=== PATIENT | male | born 1965 | race American Indian/Alaskan Native ===

== ENCOUNTER 2016-06-01 18:50 | Emergency (ER) | payer OTHER ==
[2016-06-01] MEDS ORDERED: NORCO 7.5/325 PO ONE (23:43)
--- NOTE | 2016-06-01 23:46 | Emergency Department Report ---
ED Extremity Problem HPI - General Chief complaint: Extremity Problem,Nontraumatic Stated complaint: RT KNEE SWELLING Time Seen by Provider: 06/01/16 23:41 Source: patient Mode of arrival: Ambulatory Limitations: No Limitations - History of Present Illness Initial comments: 11-year-old male comes in for complaint of right knee pain and swelling since Saturday. Patient denies any known injuries. He is also requesting blood pressure medicine since he's been out for 2 months. She reports that he is on lisinopril 10 per O Lasix 20 and for pain medicine he had been on tramadol but it's been a while. - Related Data Previous Rx's Medication Instructions Recorded Last Taken Type Ibuprofen [Motrin 800 MG tab] 800 mg PO Q8HR PRN #20 tablet 03/31/16 Unknown Rx Acetaminophen/Codeine [Tylenol #3] 1 tab PO Q4HR PRN #20 tablet 06/01/16 Unknown Rx Furosemide [Lasix TAB] 20 mg PO QDAY #7 tablet 06/01/16 Unknown Rx Lisinopril [Zestril TAB] 10 mg PO QDAY #40 tablet 06/01/16 Unknown Rx traMADol [Ultram 50 MG tab] 50 mg PO Q6H #14 tablet 06/01/16 Unknown Rx Allergies Allergy/AdvReac Type Severity Reaction Status Date / Time docusate Allergy Vomiting Verified 01/01/16 06:23 docusate sodium [From Colace] Allergy Vomiting Verified 01/01/16 06:23 ED Review of Systems ROS: Stated complaint: RT KNEE SWELLING Other details as noted in HPI Constitutional: no symptoms reported Respiratory: denies: cough, shortness of breath Cardiovascular: denies: chest pain Musculoskeletal: joint swelling (right knee ), arthralgia (right knee) ED Past Medical Hx - Past Medical History Hx Hypertension: Yes (noncompliant with medications) Hx Congestive Heart Failure: No Hx Diabetes: No Hx Deep Vein Thrombosis: No Hx Asthma: No Hx COPD: No Hx HIV: No Additional medical history: diverticulitis,. only right kidney. gout - Surgical History Hx Pacemaker: No Hx Internal Defibrillator: No Additional Surgical History: colostomy 10/24/12, reversal of colostomy 2013, left kidney removed 1971, left knee surgery 2013. abd surgery x 2, hernia - Social History Smoking Status: Never Smoker Substance Use Type: None - Medications Home Medications: Home Medications Medication Instructions Recorded Confirmed Last Taken Type Ibuprofen [Motrin 800 MG tab] 800 mg PO Q8HR PRN #20 tablet 03/31/16 Unknown Rx Acetaminophen/Codeine [Tylenol #3] 1 tab PO Q4HR PRN #20 tablet 06/01/16 Unknown Rx Furosemide [Lasix TAB] 20 mg PO QDAY #7 tablet 06/01/16 Unknown Rx Lisinopril [Zestril TAB] 10 mg PO QDAY #40 tablet 06/01/16 Unknown Rx traMADol [Ultram 50 MG tab] 50 mg PO Q6H #14 tablet 06/01/16 Unknown Rx ED Physical Exam - General Limitations: No Limitations General appearance: alert, in no apparent distress - Expanded Lower Extremity Exam Right Upper Leg exam: Present: normal inspection, full ROM. Absent: tenderness, swelling Knee exam: Present: full ROM, tenderness, swelling, crepidus. Absent: deformity , dislocation, erythema, effusion Lower Leg exam: Present: normal inspection, full ROM. Absent: tenderness, swelling ED Course Vital Signs 06/01/16 19:20 Temperature 97.8 F Pulse Rate 83 Respiratory 18 Rate Blood Pressure 151/115 O2 Sat by Pulse 99 Oximetry ED Medical Decision Making - Medical Decision Making Patient has been evaluated by this provider in fast track. The patient Carroll for pain control and discharged patient on tramadol 50 mg 1 tablet by mouth 3 times a day when necessary for pain and we will refer patient to a primary care provider. Also refill patient's lisinopril 10 mg and furosemide 20 mg. Critical care attestation.: If time is entered above; I have spent that time in minutes in the direct care of this critically ill patient, excluding procedure time. ED Disposition Clinical Impression: Knee pain, right Qualifiers: Chronicity: acute Qualified Code(s): M25.561 - Pain in right knee Disposition: DISCHARGED TO HOME OR SELFCARE Is pt being admited?: No Does the pt Need Aspirin: No Condition: Stable Additional Instructions: Report to take pain medication dictation when necessary follow-up with pain provider or primary care. Prescriptions: Acetaminophen/Codeine [Tylenol #3] 1 tab PO Q4HR PRN #20 tablet PRN Reason: Pain Furosemide [Lasix TAB] 20 mg PO QDAY #7 tablet Lisinopril [Zestril TAB] 10 mg PO QDAY #40 tablet traMADol [Ultram 50 MG tab] 50 mg PO Q6H #14 tablet Referrals: PRIMARY CARE, [Primary Care Provider] - 3-5 Days Forms: Work/School Release Form(ED)
[2016-06-02 00:10] VITALS: BP 148/106
== END 2016-06-02 00:05 | disposition home or self-care (01) ==
LOC: ED 18:50
DX: M25.561 Pain in right knee (principal); I10 Essential (primary) hypertension; Z98.890 Other specified postprocedural states; Z88.8 Allergy status to other drugs, medicaments and biological substances
CPT/HCPCS: 99282

== ENCOUNTER 2016-08-02 16:35 | Emergency (ER) | payer SELFPAY ==
[2016-08-02 18:25] LABS: Basophils % (Auto) 0.6 % (0.0-1.8); Eosinophils % (Auto) 0.8 % (0.0-4.3); Hematocrit 41.6 % (35.5-45.6); Hemoglobin 13.5 gm/dl (11.8-15.2); Mean Corpuscular HGB Conc 33 % (32-34); Mean Corpuscular Hemoglobin 28 pg (28-32); Mean Corpuscular Volume 86 fl (84-94); Platelet Count 275 K/mm3 (140-440); Red Blood Count 4.83 M/mm3 (3.65-5.03); Red Cell Distribution Width 14.3 % (13.2-15.2); White Blood Count 5.6 K/mm3 (4.5-11.0)
[2016-08-02 18:30] LABS: Bilirubin,Urine NEG (Negative); Blood,Urine NEG (Negative); Ketones,Urine NEG (Negative); Leukocyte Esterase,Urine NEG (Negative); Mucus,Urine FEW /HPF; Nitrite,Urine NEG (Negative); Protein,Urine <15 mg/dL mg/dL (Negative)
[2016-08-02 18:34] LABS: WBC,Urine < 1.0 /HPF (0.0-6.0)
[2016-08-02 18:37] LABS: Alanine Aminotransferase 19 units/L (7-56); Albumin 3.8 g/dL (3.9-5); Albumin/Globulin Ratio 1.3 %; Alkaline Phosphatase 54 units/L (35-129); Anion Gap 17 mmol/L; BUN/Creatinine Ratio 10.66; Bilirubin,Total 0.2 mg/dL (0.1-1.2); Blood Urea Nitrogen 16 mg/dL (9-20); Calcium 9.1 mg/dL (8.4-10.2); Carbon Dioxide 26 mmol/L (22-30); Chloride 101.5 mmol/L (98-107); Glucose 94 mg/dL (75-100); Lipase 35 units/L (13-60); Sodium 140 mmol/L (137-145); Total Protein 6.7 g/dL (6.3-8.2)
[2016-08-02] MEDS ORDERED: NACL 0.9% 500 ML 500 ML IV ONE (19:46)
[2016-08-02] MEDS ORDERED: MORPHINE IV ONE ×2 (19:46→22:19)
--- NOTE | 2016-08-02 19:54 | Emergency Department Report ---
ED Abdominal Pain HPI - General Chief Complaint: Abdominal Pain Stated Complaint: ABDOMINAL PAIN Time Seen by Provider: 08/02/16 19:30 Source: patient Mode of arrival: Ambulatory Limitations: No Limitations - History of Present Illness Initial Comments: Patient complain of long history of recurrent left lower quadrant pain associated with severe diverticulitis and prior surgeries for recurrent ruptured diverticulitis. States this episode of pain in his progress for about a week to week and a half and has had progressing left sided abdominal pain increased nausea vomiting and diarrhea. Patient denies fever or chills. MD Complaint: abdominal pain -: Gradual, week(s) Location: LLQ Radiation: LUQ, LLQ Severity: severe Severity scale (0 -10): 7 Quality: cramping, aching - Related Data Previous Rx's Medication Instructions Recorded Last Taken Type Ibuprofen [Motrin 800 MG tab] 800 mg PO Q8HR PRN #20 tablet 03/31/16 Unknown Rx Acetaminophen/Codeine [Tylenol #3] 1 tab PO Q4HR PRN #20 tablet 06/01/16 Unknown Rx Furosemide [Lasix TAB] 20 mg PO QDAY #7 tablet 06/01/16 Unknown Rx Lisinopril [Zestril TAB] 10 mg PO QDAY #40 tablet 06/01/16 Unknown Rx traMADol [Ultram 50 MG tab] 50 mg PO Q6H #14 tablet 06/01/16 Unknown Rx Ciprofloxacin [Ciprofloxacin ORAL 500 mg PO BID #24 ml 08/02/16 Unknown Rx LIQ] metroNIDAZOLE [Flagyl] 500 mg PO Q12HR #24 tab 08/02/16 Unknown Rx Allergies Allergy/AdvReac Type Severity Reaction Status Date / Time docusate Allergy Vomiting Verified 08/02/16 17:11 docusate sodium [From Colace] Allergy Vomiting Verified 08/02/16 17:11 ED Review of Systems ROS: Stated complaint: ABDOMINAL PAIN Other details as noted in HPI ED Past Medical Hx - Past Medical History Hx Hypertension: Yes (noncompliant with medications) Hx Congestive Heart Failure: No Hx Diabetes: No Hx Deep Vein Thrombosis: No Hx Arthritis: Yes Hx Asthma: No Hx COPD: No Hx HIV: No Additional medical history: diverticulitis,. only right kidney. gout - Surgical History Hx Pacemaker: No Hx Internal Defibrillator: No Additional Surgical History: colostomy 10/24/12, reversal of colostomy 2013, left kidney removed 1971, left knee surgery 2013. abd surgery x 2,. HERNIA - Social History Smoking Status: Never Smoker Substance Use Type: Alcohol - Medications Home Medications: Home Medications Medication Instructions Recorded Confirmed Last Taken Type Ibuprofen [Motrin 800 MG tab] 800 mg PO Q8HR PRN #20 tablet 03/31/16 Unknown Rx Acetaminophen/Codeine [Tylenol #3] 1 tab PO Q4HR PRN #20 tablet 06/01/16 Unknown Rx Furosemide [Lasix TAB] 20 mg PO QDAY #7 tablet 06/01/16 Unknown Rx Lisinopril [Zestril TAB] 10 mg PO QDAY #40 tablet 06/01/16 Unknown Rx traMADol [Ultram 50 MG tab] 50 mg PO Q6H #14 tablet 06/01/16 Unknown Rx Ciprofloxacin [Ciprofloxacin ORAL 500 mg PO BID #24 ml 08/02/16 Unknown Rx LIQ] metroNIDAZOLE [Flagyl] 500 mg PO Q12HR #24 tab 08/02/16 Unknown Rx ED Physical Exam - General Limitations: No Limitations ED Course Vital Signs 08/02/16 17:13 Temperature 97.6 F Pulse Rate 70 Respiratory 20 Rate Blood Pressure 141/109 O2 Sat by Pulse 100 Oximetry - Reevaluation(s) Reevaluation #1: 08/02/16 20:54 Patient resting comfortably. Vital stable. ED Medical Decision Making - Lab Data Result diagrams: 08/02/16 18:05 08/02/16 18:05 Lab Results 08/02/16 08/02/16 08/02/16 Range/Units 17:45 18:05 18:05 WBC 5.6 (4.5-11.0) K/mm3 RBC 4.83 (3.65-5.03) M/mm3 Hgb 13.5 (11.8-15.2) gm/dl Hct 41.6 (35.5-45.6) % MCV 86 (84-94) fl MCH 28 (28-32) pg MCHC 33 (32-34) % RDW 14.3 (13.2-15.2) % Plt Count 275 (140-440) K/mm3 Lymph % (Auto) 35.9 H (13.4-35.0) % [place] % (Auto) 10.3 H (0.0-7.3) % Eos % (Auto) 0.8 (0.0-4.3) % Baso % (Auto) 0.6 (0.0-1.8) % Lymph # 2.0 (1.2-5.4) K/mm3 [place] # 0.6 (0.0-0.8) K/mm3 Eos # 0.0 (0.0-0.4) K/mm3 Baso # 0.0 (0.0-0.1) K/mm3 Seg Neutrophils % 52.4 (40.0-70.0) % Seg Neutrophils # 2.9 (1.8-7.7) K/mm3 Sodium 140 (137-145) mmol/L Potassium 4.0 (3.6-5.0) mmol/L Chloride 101.5 (98-107) mmol/L Carbon Dioxide 26 (22-30) mmol/L Anion Gap 17 mmol/L BUN 16 (9-20) mg/dL Creatinine 1.5 (0.8-1.5) mg/dL Estimated GFR > 60 ml/min BUN/Creatinine Ratio 10.66 % Glucose 94 (75-100) mg/dL Calcium 9.1 (8.4-10.2) mg/dL Total Bilirubin 0.2 (0.1-1.2) mg/dL AST 20 (5-40) units/L ALT 19 (7-56) units/L Alkaline Phosphatase 54 (35-129) units/L Total Protein 6.7 (6.3-8.2) g/dL Albumin 3.8 L (3.9-5) g/dL Albumin/Globulin Ratio 1.3 % Lipase 35 (13-60) units/L Urine Color Yellow (Yellow) Urine Turbidity Clear (Clear) Urine pH 5.0 (5.0-7.0) Ur Specific Institute 1.019 (1.003-1.030) Urine Protein <15 mg/dl (Negative) mg/dL Urine Glucose (UA) Neg (Negative) mg/dL Urine Ketones Neg (Negative) mg/dL Urine Blood Neg (Negative) Urine Nitrite Neg (Negative) Urine Bilirubin Neg (Negative) Urine Urobilinogen 4.0 (<2.0) mg/dL Ur Leukocyte Esterase Neg (Negative) Urine WBC (Auto) < 1.0 (0.0-6.0) /HPF Urine RBC (Auto) 2.0 (0.0-6.0) /HPF U Epithel Cells (Auto) < 1.0 (0-13.0) /HPF Urine Mucus Few /HPF Critical care attestation.: If time is entered above; I have spent that time in minutes in the direct care of this critically ill patient, excluding procedure time. ED Disposition Clinical Impression: Diverticular disease Disposition: DISCHARGED TO HOME OR SELFCARE Is pt being admited?: No Condition: Stable Instructions: Diverticulitis (ED) Prescriptions: Ciprofloxacin [Ciprofloxacin ORAL LIQ] 500 mg PO BID #24 ml metroNIDAZOLE [Flagyl] 500 mg PO Q12HR #24 tab Referrals: PRIMARY CARE, [Primary Care Provider] - 3-5 Days Forms: Work/School Release Form(ED)
[2016-08-02] MEDS ORDERED: FLAGYL 500 MG/100 ML 500 MG/100 ML BAG IV SCH (20:00)
--- NOTE | 2016-08-02 21:17 | Cat Scan Report ---
FINAL REPORT PROCEDURE: CT ABDOMEN PELVIS WO CON TECHNIQUE: Computerized axial tomography of the abdomen and pelvis was performed without intravenous contrast. This study is performed without intravascular contrast material and its sensitivity for abdominal and pelvic pathology, including neoplasms, inflammation, abscess, free fluid, thrombosis, arterial dissection and infarction, is reduced compared with a contrast enhanced study. HISTORY: llq pain COMPARISON: Prior CT scan abdomen and pelvis 01/09/2016 FINDINGS: Lower Lung narayanan: Minimal dependent atelectasis visualized. Lung bases otherwise are clear. Upper Abdomen: The liver, the gallbladder, the adrenal glands, the spleen on the unenhanced images of the pancreas are unremarkable. Kidneys, Ureters and Urinary bladder: Left kidney is not visualized. Left kidney was also not visualized on the prior exam. Right kidney and right ureter are unremarkable. The urinary bladder is unremarkable. Retroperitoneum: Abdominal aorta appears normal. Nonspecific subcentimeter lymph nodes are seen in the retroperitoneum. No pathologically enlarged lymph nodes are identified. Bowel: There are surgical clips seen near the junction of the descending colon and sigmoid colon. There also appear to be surgical clips involving loops of small bowel in the mid abdomen anteriorly. Bowel loops otherwise are unremarkable. No evidence of bowel obstruction ascites or free intraperitoneal gas. Normal-appearing appendix is seen in the right lower quadrant. Scarring is again visualized in the anterior abdominal wall. This is greatest at the umbilicus and extending to the left of midline. There is a mesh visualized in the anterior abdominal wall in the left lower quadrant. This is unchanged. Other: No acute bony abnormalities are visualized. IMPRESSION: Postsurgical changes are seen involving loops of small bowel in the mid abdomen anteriorly and also involving the left side of the colon as described. Bowel loops otherwise are unremarkable. No evidence of bowel obstruction. Postsurgical changes are seen in the anterior abdominal wall as described. A mesh appears to be present in the anterior abdominal wall in the left lower quadrant. This is unchanged. Left kidney is not visualized. This is unchanged from the prior exam. This could be due to prior resection, severe atrophy or congenital absence.
[2016-08-02 22:36] VITALS: BP 158/116
== END 2016-08-02 22:38 | disposition home or self-care (01) ==
LOC: ED 16:35
DX: K57.90 Diverticulosis of intestine, part unspecified, without perforation or abscess without bleeding (principal); I10 Essential (primary) hypertension; Z93.3 Colostomy status; Z98.890 Other specified postprocedural states
CPT/HCPCS: 36415; 74176; 80053; 81001; 83690; 85025; 96361; 96365; 96375; 96376; 99284; J2270; J7040

== ENCOUNTER 2016-10-02 02:04 | Emergency (ER) | payer SELFPAY ==
[2016-10-02 02:56] LABS: Basophils % (Auto) 1.2 % (0.0-1.8); Eosinophils % (Auto) 0.5 % (0.0-4.3); Hematocrit 43.7 % (35.5-45.6); Hemoglobin 14.3 gm/dl (11.8-15.2); Mean Corpuscular HGB Conc 33 % (32-34); Mean Corpuscular Hemoglobin 28 pg (28-32); Mean Corpuscular Volume 86 fl (84-94); Platelet Count 276 K/mm3 (140-440); Red Blood Count 5.08 M/mm3 (3.65-5.03); Red Cell Distribution Width 15.4 % (13.2-15.2); White Blood Count 6.6 K/mm3 (4.5-11.0)
[2016-10-02 03:08] LABS: Alanine Aminotransferase 31 units/L (7-56); Albumin 4.2 g/dL (3.9-5); Albumin/Globulin Ratio 1.5 %; Alkaline Phosphatase 57 units/L (35-129); Anion Gap 17 mmol/L; Blood Urea Nitrogen 21 mg/dL (9-20); Calcium 9.3 mg/dL (8.4-10.2); Carbon Dioxide 26 mmol/L (22-30); Chloride 101.8 mmol/L (98-107); Glucose 92 mg/dL (75-100); Lipase 34 units/L (13-60); Potassium 4.3 mmol/L (3.6-5.0); Sodium 140 mmol/L (137-145)
[2016-10-02 06:21] LABS: Bilirubin,Urine NEG (Negative); Blood,Urine SM (Negative); Ketones,Urine NEG (Negative); Leukocyte Esterase,Urine NEG (Negative); Mucus,Urine FEW /HPF; Nitrite,Urine NEG (Negative); Protein,Urine <15 mg/dL mg/dL (Negative); Urobilinogen,Urine < 2.0 mg/dL (<2.0); WBC,Urine < 1.0 /HPF (0.0-6.0)
[2016-10-02] MEDS ORDERED: ZOFRAN IV ONE (07:02)
[2016-10-02] MEDS ORDERED: MORPHINE IV ONE (07:02)
--- NOTE | 2016-10-02 07:06 | Emergency Department Report ---
HPI - General Chief Complaint: Abdominal Pain Time Seen by Provider: 10/02/16 06:54 - HPI HPI: This is a 51-year-old Afro-[place] male who presents to the emergency Department, after being dropped off by his fiance, with complaint of a 2-3 day history of generalized abdominal pain that is worst in the lower portion of the abdomen. It is associated with some nausea and mild vomiting. He denies any diarrhea, dysuria. He has not taken anything for his symptoms prior to presentation. He does not have a primary care physician. He has a past medical history of asthma diverticulitis. He has a history of colostomy and reversal of colostomy, left nephrectomy, 2 other abdominal surgeries for hernias. No recent travel or sick contacts at home. ED Past Medical Hx - Past Medical History Previous Medical History?: Yes Hx Hypertension: Yes (noncompliant with medications) Hx Congestive Heart Failure: No Hx Diabetes: No Hx Deep Vein Thrombosis: No Hx Arthritis: Yes Hx Asthma: No Hx COPD: No Hx HIV: No Additional medical history: diverticulitis,. only right kidney. gout - Surgical History Past Surgical History?: Yes Hx Pacemaker: No Hx Internal Defibrillator: No Additional Surgical History: colostomy 10/24/12, reversal of colostomy 2013, left kidney removed 1971, left knee surgery 2013. abd surgery x 2,. HERNIA - Social History Smoking Status: Unknown if ever smoked Substance Use Type: None - Medications Home Medications: Home Medications Medication Instructions Recorded Confirmed Last Taken Type Ibuprofen [Motrin 800 MG tab] 800 mg PO Q8HR PRN #20 tablet 03/31/16 Unknown Rx Acetaminophen/Codeine [Tylenol #3] 1 tab PO Q4HR PRN #20 tablet 06/01/16 Unknown Rx Furosemide [Lasix TAB] 20 mg PO QDAY #7 tablet 06/01/16 Unknown Rx Lisinopril [Zestril TAB] 10 mg PO QDAY #40 tablet 06/01/16 Unknown Rx Ciprofloxacin [Ciprofloxacin ORAL 500 mg PO BID #24 ml 08/02/16 Unknown Rx LIQ] metroNIDAZOLE [Flagyl] 500 mg PO Q12HR #24 tab 08/02/16 Unknown Rx traMADol [Ultram 50 MG tab] 50 mg PO Q6H #8 tablet 10/02/16 Unknown Rx ED Review of Systems ROS: Stated complaint: ABD PAIN Other details as noted in HPI Comment: All other systems reviewed and negative Constitutional: denies: chills, fever Eyes: denies: eye pain, eye discharge, vision change ENT: denies: ear pain, throat pain Respiratory: denies: cough, shortness of breath, wheezing Cardiovascular: denies: chest pain, palpitations Gastrointestinal: abdominal pain, nausea, vomiting Genitourinary: denies: urgency, dysuria Musculoskeletal: denies: back pain, joint swelling, arthralgia Skin: denies: rash, lesions Neurological: denies: headache, weakness, paresthesias Physical Exam - Physical Exam Vital Signs: Vital Signs 10/02/16 10/02/16 10/02/16 02:24 02:26 06:27 Temperature 99.1 F 99.1 F Pulse Rate 93 H 93 H Respiratory 20 20 Rate Blood Pressure 148/108 150/106 Blood Pressure 148/108 [Right] O2 Sat by Pulse 96 96 Oximetry 10/02/16 06:30 Temperature Pulse Rate Respiratory Rate Blood Pressure 160/112 Blood Pressure [Right] O2 Sat by Pulse Oximetry Physical Exam: GENERAL: The patient is well-developed well-nourished. HEENT: Normocephalic. Atraumatic. Extraocular motions are intact. Patient has moist mucous membranes. NECK: Supple. Trachea is midline. CHEST/LUNGS: Clear to auscultation. There is no respiratory distress noted. HEART/CARDIOVASCULAR: Regular. There is no tachycardia. There is no gallop rub or murmur. ABDOMEN: Abdomen is soft. There is some generalized tenderness to palpation of the abdomen. No guarding or rebound tenderness. Patient has normal bowel sounds. Obese habitus. SKIN: Skin is warm and dry. NEURO: The patient is awake, alert, and oriented. The patient is cooperative. The patient has no focal neurologic deficits. The patient has normal speech. MUSCULOSKELETAL: There is no tenderness or deformity. There is no limitation range of motion. There is no evidence of acute injury. ED Course Vital Signs 10/02/16 10/02/16 10/02/16 02:24 02:26 06:27 Temperature 99.1 F 99.1 F Pulse Rate 93 H 93 H Respiratory 20 20 Rate Blood Pressure 148/108 150/106 Blood Pressure 148/108 [Right] O2 Sat by Pulse 96 96 Oximetry 10/02/16 06:30 Temperature Pulse Rate Respiratory Rate Blood Pressure 160/112 Blood Pressure [Right] O2 Sat by Pulse Oximetry ED Medical Decision Making - Lab Data Result diagrams: 10/02/16 02:33 10/02/16 02:33 - Radiology Data Radiology results: report reviewed, image reviewed interpreted by me: Abdominal x-ray shows nonspecific nonobstructive bowel gas. Otherwise no acute process seen. CT ABDOMEN AND PELVIS WITH CONTRAST INDICATION: Abdominal pain. COMPARISON: 08/02/2016. FINDINGS: Abdomen and pelvis CT performed following oral contrast and intravenous administration of 100 cc of Omnipaque 300. LUNG BASES: Stable heart size. No effusions. Right more than left basilar dependent atelectasis. Mild lingular scarring. ABDOMEN: Liver homogenous, though visually slightly hypodense. No focal suspicious lesions or biliary dilatation. Spleen, gallbladder, pancreas, adrenals, non-aneurysmal abdominal aorta, IVC and right kidney again unremarkable. Absent left kidney, possibly congenital versus surgical with bowel occupying the left renal fossa. No bowel obstruction. Small bowel anastomosis in the midline again noted with caliber of 3.8 cm AP, axial image 176, series 2 and a small overlying possible fat-containing ventral hernia as on axial image 162. Normal appendix. Usual colonic stool. No ascites or significant adenopathy. PELVIS: Urinary bladder, seminal vesicles, prostate and rectosigmoid within normal limits. Few small prostatic calcifications and pelvic phleboliths. No free fluid or significant adenopathy. Anterior abdominal wall postsurgical changes noted, including left lower quadrant ventral wall hernia repair [place]. Left lower flank muscle atrophy/fatty replacement again noted. Right SI joint degenerative bridging. CONCLUSION: No acute CT abnormality or significant interval change with small bowel anastomosis, anterior abdominal wall post surgical changes and absent left kidney again noted, amongst others, as described. Thank you for the opportunity to participate in this patient's care. Transcribed By: RS Dictated By: RENETTA BARCENAS MD Electronically Authenticated By: RENETTA BARCENAS MD Signed Date/Time: 10/02/16 1119 - Medical Decision Making 51-year-old male with a history of intestinal anastomosis and multiple hernias presents with a few days of abdominal pain and some nausea with occasional vomiting. His labs are unremarkable including no signs of infection in the blood or urine, electrolyte abnormalities, renal insufficiency. Normal belly labs include bilirubin, lipase and LFTs. Abdominal x-ray does not show any acute process. Due to his level of discomfort, a CT of the abdomen and pelvis with IV contrast was done that resulted as no acute process as well. For these reasons the patient appears safe for discharge home at this time. Vital signs stable throughout his ED course. He was given referrals for primary care and gastroenterology. He was sent home with a small amount of pain medication. He has been encouraged to return to the emergency department with any worsening of his symptoms or any acute distress. - Differential Diagnosis colitis, diverticulitis, bowel obstruction, hernia Critical Care Time: No Critical care attestation.: If time is entered above; I have spent that time in minutes in the direct care of this critically ill patient, excluding procedure time. ED Disposition Clinical Impression: Abdominal pain Qualifiers: Abdominal location: generalized Qualified Code(s): R10.84 - Generalized abdominal pain Disposition: TO HOME OR SELFCARE Is pt being admited?: No Condition: Stable Instructions: Abdominal Pain (ED) Additional Instructions: Please follow-up with a primary care physician in the next few days. I have also given you a referral for a local fagoter that works at [facility], Dr. Lazo. Return to the emergency department with any worsening of your symptoms or any acute distress. You've been prescribed a medication that is sedating. Therefore this medication cannot be mixed with alcohol, or taken prior to driving, working, or being responsible for children. Prescriptions: traMADol [Ultram 50 MG tab] 50 mg PO Q6H #8 tablet Referrals: OCTAVIO OBRIEN MD [Primary Care Provider] - 3-5 Days SEGUN CERVANTES MD [Staff Physician] - 3-5 Days TITI LAZO MD [Staff Physician] - 3-5 Days [facility] [Outside] - 3-5 Days Time of Disposition: 11:38
--- NOTE | 2016-10-02 08:26 | XRay Report ---
ABDOMEN RADIOGRAPHS INDICATION: Abdominal pain. COMPARISON: 11/04/2013 and 08/02/2016 CT findings. FINDINGS: Frontal abdominal radiographs demonstrate nonobstructive bowel gas pattern. No focal suspicious calcifications, pneumatosis or pneumoperitoneum. Few left lower quadrant hernia repair [place]. Clear visualized lung bases. Unremarkable bones. CONCLUSION: No acute abdominal radiographic abnormality, as described. Thank you for the opportunity to participate in this patient's care.
[2016-10-02] MEDS ORDERED: NACL ONE (10:06)
[2016-10-02] MEDS ORDERED: DILAUDID IV ONE (10:09)
--- NOTE | 2016-10-02 11:24 | Cat Scan Report ---
CT ABDOMEN AND PELVIS WITH CONTRAST INDICATION: Abdominal pain. COMPARISON: 08/02/2016. FINDINGS: Abdomen and pelvis CT performed following oral contrast and intravenous administration of 100 cc of Omnipaque 300. LUNG BASES: Stable heart size. No effusions. Right more than left basilar dependent atelectasis. Mild lingular scarring. ABDOMEN: Liver homogenous, though visually slightly hypodense. No focal suspicious lesions or biliary dilatation. Spleen, gallbladder, pancreas, adrenals, non-aneurysmal abdominal aorta, IVC and right kidney again unremarkable. Absent left kidney, possibly congenital versus surgical with bowel occupying the left renal fossa. No bowel obstruction. Small bowel anastomosis in the midline again noted with caliber of 3.8 cm AP, axial image 176, series 2 and a small overlying possible fat-containing ventral hernia as on axial image 162. Normal appendix. Usual colonic stool. No ascites or significant adenopathy. PELVIS: Urinary bladder, seminal vesicles, prostate and rectosigmoid within normal limits. Few small prostatic calcifications and pelvic phleboliths. No free fluid or significant adenopathy. Anterior abdominal wall postsurgical changes noted, including left lower quadrant ventral wall hernia repair [place]. Left lower flank muscle atrophy/fatty replacement again noted. Right SI joint degenerative bridging. CONCLUSION: No acute CT abnormality or significant interval change with small bowel anastomosis, anterior abdominal wall post surgical changes and absent left kidney again noted, amongst others, as described. Thank you for the opportunity to participate in this patient's care.
[2016-10-02 12:21] VITALS: BP 140/90
== END 2016-10-02 12:20 | disposition home or self-care (01) ==
LOC: ED 02:04
DX: R10.84 Generalized abdominal pain (principal); R11.2 Nausea with vomiting, unspecified; I10 Essential (primary) hypertension; M19.90 Unspecified osteoarthritis, unspecified site; K57.92 Diverticulitis of intestine, part unspecified, without perforation or abscess without bleeding
CPT/HCPCS: 36415; 74020; 74177; 80053; 81001; 83690; 85025; 96374; 96375; 99284; J1170; J2270; J2405; Q9967

== ENCOUNTER 2016-10-18 13:50 | Emergency (ER) | payer SELFPAY ==
[2016-10-18 14:30] VITALS: BP 143/96
[2016-10-18 15:13] LABS: Bilirubin,Urine NEG (Negative); Blood,Urine SM (Negative); Ketones,Urine NEG (Negative); Leukocyte Esterase,Urine NEG (Negative); Mucus,Urine FEW /HPF; Nitrite,Urine NEG (Negative); Protein,Urine <15 mg/dL mg/dL (Negative); Urobilinogen,Urine < 2.0 mg/dL (<2.0); WBC,Urine < 1.0 /HPF (0.0-6.0)
[2016-10-18 15:14] LABS: Basophils % (Auto) 0.5 % (0.0-1.8); Eosinophils % (Auto) 1.1 % (0.0-4.3); Hematocrit 43.4 % (35.5-45.6); Hemoglobin 14.3 gm/dl (11.8-15.2); Mean Corpuscular HGB Conc 33 % (32-34); Mean Corpuscular Hemoglobin 28 pg (28-32); Mean Corpuscular Volume 87 fl (84-94); Platelet Count 273 K/mm3 (140-440); Red Blood Count 5.01 M/mm3 (3.65-5.03); Red Cell Distribution Width 15.2 % (13.2-15.2); White Blood Count 5.9 K/mm3 (4.5-11.0)
[2016-10-18 15:29] LABS: Alanine Aminotransferase 32 units/L (7-56); Albumin 4.1 g/dL (3.9-5); Albumin/Globulin Ratio 1.3 %; Alkaline Phosphatase 66 units/L (35-129); Anion Gap 17 mmol/L; BUN/Creatinine Ratio 10.76; Blood Urea Nitrogen 14 mg/dL (9-20); Calcium 9.6 mg/dL (8.4-10.2); Carbon Dioxide 26 mmol/L (22-30); Chloride 104.5 mmol/L (98-107); Glucose 83 mg/dL (75-100); Lipase 45 units/L (13-60); Potassium 4.6 mmol/L (3.6-5.0); Sodium 143 mmol/L (137-145); Total Protein 7.3 g/dL (6.3-8.2)
== END 2016-10-18 20:00 | disposition left against medical advice (07) ==
LOC: ED 13:50
DX: R10.9 Unspecified abdominal pain (principal); Z53.21 Procedure and treatment not carried out due to patient leaving prior to being seen by health care provider
CPT/HCPCS: 36415; 80053; 81001; 83690; 85025

== ENCOUNTER 2016-11-08 12:33 | Emergency (ER) | payer SELFPAY ==
--- NOTE | 2016-11-08 14:47 | XRay Report ---
RIGHT FINGERS, 3 VIEWS History: Pain, injury. Findings: No acute osseous findings or joint pathology is detected. The soft tissues are unremarkable. Impression: No acute injury identified.
[2016-11-08] MEDS ORDERED: MOTRIN PO ONE (15:51)
[2016-11-08] MEDS ORDERED: BOOSTRIX IM ONE (15:52)
[2016-11-08] MEDS ORDERED: KEFLEX PO ONE (15:52)
[2016-11-08 16:53] VITALS: BP 160/100
--- NOTE | 2016-11-08 23:18 | Emergency Department Report ---
Entered by CHER DEXTER, acting as scribe for SAVANAH MENDOZA PA. ED Upper Extremity Inj HPI - General Chief Complaint: Extremity Injury, Upper Stated Complaint: RT POINTER FINGER LACERATION Time Seen by Provider: 11/08/16 15:32 Source: patient Mode of arrival: Ambulatory Limitations: No Limitations - History of Present Illness Initial Comments: 51 year old male with history of Arthritis and HTN presents to the ED c/o right hand pain that started couple hours ago. Patient states he was lifting a TV onto a [employer] truck when the TV fell on his right fingertips. Patient rates the pain a 6/10 in severity and describes it as throbbing. Patient reports small u- shaped laceration on right index finger with bleeding, but denies any numbness or tingling. MD Complaint: Injury to:: right (right finger tips) -: This afternoon Other Extremity Injury: Fingers: Right Other Injuries: none Handedness: right Place: outdoors (moving a TV onto a [employer] ) Improves With: none Worsens With: movement of extremity Context: direct blow Associated Symptoms: denies other symptoms. denies: weakness, numbness, neck pain, suspects foreign body, nausea/vomiting, heard/felt popping sensat - Related Data Previous Rx's Medication Instructions Recorded Last Taken Type Ibuprofen [Motrin 800 MG tab] 800 mg PO Q8HR PRN #20 tablet 03/31/16 Unknown Rx Acetaminophen/Codeine [Tylenol #3] 1 tab PO Q4HR PRN #20 tablet 06/01/16 Unknown Rx Furosemide [Lasix TAB] 20 mg PO QDAY #7 tablet 06/01/16 Unknown Rx Lisinopril [Zestril TAB] 10 mg PO QDAY #40 tablet 06/01/16 Unknown Rx Ciprofloxacin [Ciprofloxacin ORAL 500 mg PO BID #24 ml 08/02/16 Unknown Rx LIQ] metroNIDAZOLE [Flagyl] 500 mg PO Q12HR #24 tab 08/02/16 Unknown Rx traMADol [Ultram 50 MG tab] 50 mg PO Q6H #8 tablet 10/02/16 Unknown Rx Cephalexin [Keflex] 500 mg PO Q12HR #14 cap 11/08/16 Unknown Rx Ibuprofen [Motrin] 800 mg PO Q8HR PRN #25 tablet 11/08/16 Unknown Rx Allergies Allergy/AdvReac Type Severity Reaction Status Date / Time docusate Allergy Vomiting Verified 11/08/16 12:45 docusate sodium [From Colace] Allergy Vomiting Verified 11/08/16 12:45 ED Review of Systems Comment: All other systems reviewed and negative Constitutional: denies: chills, fever Eyes: denies: eye pain, eye discharge, vision change ENT: denies: ear pain, throat pain Respiratory: denies: cough, shortness of breath, wheezing Cardiovascular: denies: chest pain, palpitations Gastrointestinal: denies: abdominal pain, nausea, diarrhea Musculoskeletal: denies: back pain, joint swelling, arthralgia Skin: other (small u-shaped laceration on right index finger with controlled bleeding). denies: rash, lesions Neurological: denies: headache, weakness, paresthesias ED Past Medical Hx - Past Medical History Hx Hypertension: Yes (noncompliant with medications) Hx Congestive Heart Failure: No Hx Diabetes: No Hx Deep Vein Thrombosis: No Hx Arthritis: Yes Hx Asthma: No Hx COPD: No Hx HIV: No Additional medical history: diverticulitis,. only right kidney. gout - Surgical History Hx Pacemaker: No Hx Internal Defibrillator: No Additional Surgical History: colostomy 10/24/12, reversal of colostomy 2013, left kidney removed 1971, left knee surgery 2013. abd surgery x 2,. HERNIA - Social History Smoking Status: Former Smoker Substance Use Type: Alcohol - Medications Home Medications: Home Medications Medication Instructions Recorded Confirmed Last Taken Type Ibuprofen [Motrin 800 MG tab] 800 mg PO Q8HR PRN #20 tablet 03/31/16 Unknown Rx Acetaminophen/Codeine [Tylenol #3] 1 tab PO Q4HR PRN #20 tablet 06/01/16 Unknown Rx Furosemide [Lasix TAB] 20 mg PO QDAY #7 tablet 06/01/16 Unknown Rx Lisinopril [Zestril TAB] 10 mg PO QDAY #40 tablet 06/01/16 Unknown Rx Ciprofloxacin [Ciprofloxacin ORAL 500 mg PO BID #24 ml 08/02/16 Unknown Rx LIQ] metroNIDAZOLE [Flagyl] 500 mg PO Q12HR #24 tab 08/02/16 Unknown Rx traMADol [Ultram 50 MG tab] 50 mg PO Q6H #8 tablet 10/02/16 Unknown Rx Cephalexin [Keflex] 500 mg PO Q12HR #14 cap 11/08/16 Unknown Rx Ibuprofen [Motrin] 800 mg PO Q8HR PRN #25 tablet 11/08/16 Unknown Rx ED Physical Exam - General Limitations: No Limitations General appearance: alert, in no apparent distress - Head Head exam: Present: atraumatic, normocephalic - Eye Eye exam: Present: normal appearance, PERRL, EOMI Pupils: Present: normal accommodation. Absent: irregular - ENT ENT exam: Present: mucous membranes moist - Neck Neck exam: Present: normal inspection, full ROM. Absent: tenderness, meningismus - Respiratory Respiratory exam: Present: normal lung sounds bilaterally. Absent: respiratory distress, wheezes, rales, rhonchi, stridor - Cardiovascular Cardiovascular Exam: Present: regular rate, normal rhythm. Absent: systolic murmur, diastolic murmur, rubs, gallop - Extremities Exam Extremities exam: Present: normal inspection, full ROM, normal capillary refill. Absent: tenderness, pedal edema, joint swelling - Back Exam Back exam: Present: normal inspection, full ROM. Absent: tenderness - Neurological Exam Neurological exam: Present: alert, oriented X3 - Psychiatric Psychiatric exam: Present: normal affect, normal mood - Skin Skin exam: Present: warm, dry, intact, normal color, other (small u-shaped laceration on right index finger ). Absent: rash - Expanded Skin Exam Expanded Type of lesion: Present: laceration (to right index finger) ED Course Vital Signs 11/08/16 12:41 Temperature 97.8 F Pulse Rate 81 Respiratory 17 Rate Blood Pressure 143/101 O2 Sat by Pulse 96 Oximetry ED Medical Decision Making - Medical Decision Making A/P: Fingertip laceration right distal index finger 1-x-ray shows no fracture. Distal capillary refill is intact and distal sensation is intact 2-tetanus updated today 3-skin wound edges are touching. Given appearance and nature of laceration it was not necessary to place sutures, I used Dermabond and Steri-Strips and achieved good approximation of skin without any difficulty. I instructed the patient on local wound care. Patient states he will get his own fingertip splint 4-Keflex 500 twice a day 5 days ED Disposition Clinical Impression: Fingertip contusion Qualifiers: Encounter type: initial encounter Qualified Code(s): S60.00XA - Contusion of unspecified finger without damage to nail, initial encounter Disposition: DC-01 TO HOME OR SELFCARE Is pt being admited?: No Does the pt Need Aspirin: No Condition: Stable Instructions: Finger Laceration (ED), Contusion in Adults (ED), Abrasion (ED), Skin Adhesive Care (ED) Additional Instructions: Patient advised to return to the ED for any pus drainage cellulitis or significant pain or significant bleeding from fingertip. Patient stated that he understood these instructions Prescriptions: Cephalexin [Keflex] 500 mg PO Q12HR #14 cap Ibuprofen [Motrin] 800 mg PO Q8HR PRN #25 tablet PRN Reason: Pain Referrals: [facility] [Provider Group] - 3-5 Days Forms: Work/School Release Form(ED) Time of Disposition: 16:39 This documentation as recorded by the [facility] poon PEARL,accurately reflects the service I personally performed and the decisions made by REJI valentin RICHARD J, PA.
== END 2016-11-08 16:54 | disposition home or self-care (01) ==
LOC: ED 12:33
DX: S61.210A Laceration without foreign body of right index finger without damage to nail, initial encounter (principal); I10 Essential (primary) hypertension; S60.00XA Contusion of unspecified finger without damage to nail, initial encounter; X58.XXXA Exposure to other specified factors, initial encounter; Y93.9 Activity, unspecified; Y92.9 Unspecified place or not applicable; Y99.9 Unspecified external cause status
CPT/HCPCS: 90471; 90715; 99283

== ENCOUNTER 2017-03-12 11:21 | Emergency (ER) | payer OTHER ==
--- NOTE | 2017-03-12 11:59 | Emergency Department Report ---
Chief Complaint: Abdominal Pain Stated Complaint: ABDOMINAL PAIN Time Seen by Provider: 03/12/17 11:54 - HPI History of Present Illness: Patient is a 52-year-old male with a prior surgical history of several abdominal surgeries presents ED complaining of abdominal pain 3 days. Patient states pain is constant and localized to his left quadrant. Patient admits to 3 vomiting episodes per day. Patient admits nausea and states he feels like his stomach is gotten a bit bigger In the past 3 days He denies fevers/chills/chest pain/shortness of breath/dizziness/headache or any other problems. - ROS Review of Systems: As noted in HPI - Exam Vital Signs: Vital Signs 03/12/17 11:47 Temperature 99.2 F Pulse Rate 86 Respiratory 16 Rate Blood Pressure 123/87 O2 Sat by Pulse 98 Oximetry Physical Exam: GENERAL: Alert and oriented x3, no apparent distress, Normal Gait, atraumatic. ABDOMEN: hypoactive bowel sounds, soft, and distended. . tender to palpation on left Quadrants, NO CVA tenderness. Several old surgical scars visualized. Some guarding. BACK: Full range of motion, no spinal tenderness, nontender to palpation. MSE screening note: Focused history and physical exam performed. Due to findings the following was ordered: ED Medical Decision Making - Medical Decision Making 52-year-old in mild distress due to pain Abdominal protocol ordered. CT scan ordered. Patient waiting to be seen by ED physician ED Disposition for MSE Condition: Stable
[2017-03-12 12:15] LABS: Basophils % (Auto) 0.5 % (0.0-1.8); Eosinophils % (Auto) 0.2 % (0.0-4.3); Hematocrit 44.4 % (35.5-45.6); Hemoglobin 14.5 gm/dl (11.8-15.2); Mean Corpuscular HGB Conc 33 % (32-34); Mean Corpuscular Hemoglobin 29 pg (28-32); Mean Corpuscular Volume 88 fl (84-94); Red Blood Count 5.04 M/mm3 (3.65-5.03); Red Cell Distribution Width 14.9 % (13.2-15.2); White Blood Count 4.3 K/mm3 (4.5-11.0)
[2017-03-12] MEDS ORDERED: NACL 0.9% 1000 ML 1,000 ML IV ONE (12:21)
[2017-03-12] MEDS ORDERED: ZOFRAN IV ONE (12:21)
[2017-03-12] MEDS ORDERED: DILAUDID IV ONE ×2 (12:21→14:09)
[2017-03-12 12:34] LABS: Alanine Aminotransferase 20 units/L (7-56); Albumin 3.8 g/dL (3.9-5); Albumin/Globulin Ratio 1.3 %; Alkaline Phosphatase 56 units/L (35-129); Anion Gap 18 mmol/L; BUN/Creatinine Ratio 13; Blood Urea Nitrogen 16 mg/dL (9-20); Calcium 8.2 mg/dL (8.4-10.2); Carbon Dioxide 25 mmol/L (22-30); Chloride 96.3 mmol/L (98-107); Glucose 93 mg/dL (75-100); Lipase 52 units/L (13-60); Potassium 4.1 mmol/L (3.6-5.0); Sodium 135 mmol/L (137-145); Total Protein 6.7 g/dL (6.3-8.2)
[2017-03-12 13:09] LABS: Bilirubin,Urine NEG (Negative); Blood,Urine SM (Negative); Ketones,Urine NEG (Negative); Leukocyte Esterase,Urine NEG (Negative); Mucus,Urine FEW /HPF; Nitrite,Urine NEG (Negative); Protein,Urine <15 mg/dL mg/dL (Negative); Urobilinogen,Urine < 2.0 mg/dL (<2.0)
--- NOTE | 2017-03-12 13:21 | Emergency Department Report ---
ED Abdominal Pain HPI - General Chief Complaint: Abdominal Pain Stated Complaint: ABDOMINAL PAIN Time Seen by Provider: 03/12/17 11:54 Source: patient Mode of arrival: Ambulatory Limitations: No Limitations - History of Present Illness Initial Comments: 52-year-old male male with past medical history of hypertension, one kidney, and previous colostomy status post reversal in 2013 secondary to diverticulitis presents to the hospital complaints of generalized abdominal pain with nausea, vomiting, and diarrhea 3 days. Patient had been approximately 3 episodes of vomiting daily. Last bowel movement was "a couple of days ago" and complains of hematochezia, melena, hematemesis, or fever. Severity scale (0 -10): 8 - Related Data Previous Rx's Medication Instructions Recorded Last Taken Type Ibuprofen [Motrin 800 MG tab] 800 mg PO Q8HR PRN #20 tablet 03/31/16 Unknown Rx Acetaminophen/Codeine [Tylenol #3] 1 tab PO Q4HR PRN #20 tablet 06/01/16 Unknown Rx Furosemide [Lasix TAB] 20 mg PO QDAY #7 tablet 06/01/16 Unknown Rx Lisinopril [Zestril TAB] 10 mg PO QDAY #40 tablet 06/01/16 Unknown Rx Ciprofloxacin [Ciprofloxacin ORAL 500 mg PO BID #24 ml 08/02/16 Unknown Rx LIQ] metroNIDAZOLE [Flagyl] 500 mg PO Q12HR #24 tab 08/02/16 Unknown Rx traMADol [Ultram 50 MG tab] 50 mg PO Q6H #8 tablet 10/02/16 Unknown Rx Cephalexin [Keflex] 500 mg PO Q12HR #14 cap 11/08/16 Unknown Rx Ibuprofen [Motrin] 800 mg PO Q8HR PRN #25 tablet 11/08/16 Unknown Rx HYDROcodone/APAP 5-325 [Jackson 1 each PO Q6HR PRN #14 tablet 03/12/17 Unknown Rx 5/325] Ondansetron [Zofran Odt] 4 mg PO Q8HR PRN #20 tab.rapdis 03/12/17 Unknown Rx Allergies Allergy/AdvReac Type Severity Reaction Status Date / Time docusate Allergy Vomiting Verified 03/12/17 11:53 docusate sodium [From Colace] Allergy Vomiting Verified 03/12/17 11:53 ED Review of Systems ROS: Stated complaint: ABDOMINAL PAIN Other details as noted in HPI Comment: All other systems reviewed and negative Other: Constitutional: No fevers chills Eyes: No eye pain visual changes ENT: No ear pain or throat pain Neck: Denies pain Respiratory: Denies cough wheezing shortness of breath Cardiovascular: Denies chest pain, palpitations, syncope GI: As per HPI : Denies dysuria, urinary frequency, or urgency Musculoskeletal: Denies back pain, joint swelling Skin: Denies rash, lesions, erythema Neurologic: Denies headache, numbness, weakness Psychiatric: Denies suicidal ideation, hallucinations ED Past Medical Hx - Past Medical History Previous Medical History?: Yes Hx Hypertension: Yes Hx Congestive Heart Failure: No Hx Diabetes: No Hx Deep Vein Thrombosis: No Hx Arthritis: Yes Hx Asthma: No Hx COPD: No Hx HIV: No Additional medical history: diverticulitis,. only right kidney. gout - Surgical History Past Surgical History?: Yes Hx Pacemaker: No Hx Internal Defibrillator: No Additional Surgical History: colostomy 10/24/12, reversal of colostomy 2013, left kidney removed 1971, left knee surgery 2013. abd surgery x 2,. HERNIA - Social History Smoking Status: Never Smoker Substance Use Type: Alcohol - Medications Home Medications: Home Medications Medication Instructions Recorded Confirmed Last Taken Type Ibuprofen [Motrin 800 MG tab] 800 mg PO Q8HR PRN #20 tablet 03/31/16 Unknown Rx Acetaminophen/Codeine [Tylenol #3] 1 tab PO Q4HR PRN #20 tablet 06/01/16 Unknown Rx Furosemide [Lasix TAB] 20 mg PO QDAY #7 tablet 06/01/16 Unknown Rx Lisinopril [Zestril TAB] 10 mg PO QDAY #40 tablet 06/01/16 Unknown Rx Ciprofloxacin [Ciprofloxacin ORAL 500 mg PO BID #24 ml 08/02/16 Unknown Rx LIQ] metroNIDAZOLE [Flagyl] 500 mg PO Q12HR #24 tab 08/02/16 Unknown Rx traMADol [Ultram 50 MG tab] 50 mg PO Q6H #8 tablet 10/02/16 Unknown Rx Cephalexin [Keflex] 500 mg PO Q12HR #14 cap 11/08/16 Unknown Rx Ibuprofen [Motrin] 800 mg PO Q8HR PRN #25 tablet 11/08/16 Unknown Rx HYDROcodone/APAP 5-325 [Jackson 1 each PO Q6HR PRN #14 tablet 03/12/17 Unknown Rx 5/325] Ondansetron [Zofran Odt] 4 mg PO Q8HR PRN #20 tab.rapdis 03/12/17 Unknown Rx ED Physical Exam - General Limitations: No Limitations - Other Other exam information: General: No limitations, patient is alert in no acute distress Head exam: Atraumatic, normocephalic Eyes exam: Normal appearance, pupils equal reactive to light, extraocular movements intact ENT: Moist mucous membrane, normal oropharynx Neck exam: Normal inspection, full range of motion, no meningismus nontender Respiratory exam: Clear to auscultation bilateral, no wheezes, rales, crackles Cardiovascular: Normal rate and rhythm, normal heart sounds Abdomen: Soft, nondistended, old septal abdominal scars with maximum tenderness midline midline abdomen scar area. Generalized tenderness. No rebound or guarding Extremity: Full range of motion normal inspection no deformity Back: Normal Inspection, full range of motion, no tenderness Neurologic: Alert, oriented x3, cranial nerves intact, no motor or sensory deficit Psychiatric: normal affect, normal mood Skin: Warm, dry, intact ED Course Vital Signs 03/12/17 03/12/17 03/12/17 11:47 12:30 12:46 Temperature 99.2 F Pulse Rate 86 80 75 Respiratory 16 20 13 Rate Blood Pressure 123/87 114/85 116/82 O2 Sat by Pulse 98 96 90 Oximetry 03/12/17 03/12/17 03/12/17 13:00 14:01 14:16 Temperature Pulse Rate 67 81 Respiratory 13 Rate Blood Pressure 115/80 108/74 115/80 O2 Sat by Pulse 94 99 94 Oximetry 03/12/17 03/12/17 03/12/17 14:30 14:46 15:00 Temperature Pulse Rate 60 82 58 L Respiratory 10 L 11 L 13 Rate Blood Pressure 106/72 106/72 99/67 O2 Sat by Pulse 96 98 90 Oximetry 03/12/17 03/12/17 03/12/17 15:16 15:30 15:46 Temperature Pulse Rate 74 60 63 Respiratory 13 12 13 Rate Blood Pressure 99/67 122/82 122/82 O2 Sat by Pulse 93 94 97 Oximetry - Reevaluation(s) Reevaluation #1: 03/12/17 16:20 Patient received Dilaudid, Zofran, and normal saline in the ED with improvement in symptoms and able to tolerate by mouth ED Medical Decision Making - Lab Data Result diagrams: 03/12/17 12:01 03/12/17 12:01 Lab Results 03/12/17 03/12/17 03/12/17 Range/Units 12:01 12:01 12:35 WBC 4.3 L (4.5-11.0) K/mm3 RBC 5.04 H (3.65-5.03) M/mm3 Hgb 14.5 (11.8-15.2) gm/dl Hct 44.4 (35.5-45.6) % MCV 88 (84-94) fl MCH 29 (28-32) pg MCHC 33 (32-34) % RDW 14.9 (13.2-15.2) % Plt Count 251 (140-440) K/mm3 Lymph % (Auto) 23.0 (13.4-35.0) % Ob[place] % (Auto) 13.9 H (0.0-7.3) % Eos % (Auto) 0.2 (0.0-4.3) % Baso % (Auto) 0.5 (0.0-1.8) % Lymph # 1.0 L (1.2-5.4) K/mm3 [place]ion # 0.6 (0.0-0.8) K/mm3 Eos # 0.0 (0.0-0.4) K/mm3 Baso # 0.0 (0.0-0.1) K/mm3 Seg Neutrophils % 62.4 (40.0-70.0) % Seg Neutrophils # 2.7 (1.8-7.7) K/mm3 Sodium 135 L (137-145) mmol/L Potassium 4.1 (3.6-5.0) mmol/L Chloride 96.3 L (98-107) mmol/L Carbon Dioxide 25 (22-30) mmol/L Anion Gap 18 mmol/L BUN 16 (9-20) mg/dL Creatinine 1.2 (0.8-1.5) mg/dL Estimated GFR > 60 ml/min BUN/Creatinine Ratio 13 % Glucose 93 (75-100) mg/dL Calcium 8.2 L (8.4-10.2) mg/dL Total Bilirubin 0.30 (0.1-1.2) mg/dL AST 20 (5-40) units/L ALT 20 (7-56) units/L Alkaline Phosphatase 56 (35-129) units/L Total Protein 6.7 (6.3-8.2) g/dL Albumin 3.8 L (3.9-5) g/dL Albumin/Globulin Ratio 1.3 % Lipase 52 (13-60) units/L Urine Color Yellow (Yellow) Urine Turbidity Clear (Clear) Urine pH 5.0 (5.0-7.0) Ur Specific Lillie 1.023 (1.003-1.030) Urine Protein <15 mg/dl (Negative) mg/dL Urine Glucose (UA) Neg (Negative) mg/dL Urine Ketones Neg (Negative) mg/dL Urine Blood Sm (Negative) Urine Nitrite Neg (Negative) Urine Bilirubin Neg (Negative) Urine Urobilinogen < 2.0 (<2.0) mg/dL Ur Leukocyte Esterase Neg (Negative) Urine WBC (Auto) 1.0 (0.0-6.0) /HPF Urine RBC (Auto) 3.0 (0.0-6.0) /HPF Urine Mucus Few /HPF - Radiology Data Radiology results: report reviewed CT abdomen and pelvis IV contrast only: Groundglass lungs may be nonspecific or related to inflammatory infectious process. Single normal right kidney. Fluid- filled loops of small bowel may be nonspecific or related to gastroenteritis - Medical Decision Making Patient tolerating by mouth intake with decreased pain with treatment in the ED will be sent home with treatment for gastroenteritis - Differential Diagnosis obstruction, diverticulitis, hernia, perforated viscus, Critical Care Time: No Critical care attestation.: If time is entered above; I have spent that time in minutes in the direct care of this critically ill patient, excluding procedure time. ED Disposition Clinical Impression: Gastroenteritis Disposition: DC-01 TO HOME OR SELFCARE Is pt being admited?: No Does the pt Need Aspirin: No Condition: Stable Instructions: Gastroenteritis (ED) Additional Instructions: Take the medication as prescribed. Return if symptoms worsen. Follow-up with your doctor. Prescriptions: HYDROcodone/APAP 5-325 [Jackson 5/325] 1 each PO Q6HR PRN #14 tablet PRN Reason: Pain Ondansetron [Zofran Odt] 4 mg PO Q8HR PRN #20 tab.rapdis PRN Reason: Nausea And Vomiting Referrals: PRIMARY CARE, [Primary Care Provider] - 3-5 Days [facility] [Provider Group] - 3-5 Days Time of Disposition: 16:20
[2017-03-12 13:42] LABS: Platelet Count 251 K/mm3 (140-440)
--- NOTE | 2017-03-12 14:15 | Cat Scan Report ---
CT scan of abdomen and pelvis with IV contrast: History: Abdominal pain, nausea vomiting, previous surgeries. Findings: Groundglass bibasilar lung. No pleural pericardial effusion. Normal liver spleen pancreas and gallbladder. Normal adrenals. Left kidney is not visualized the right kidney appears unremarkable. Normal bladder. No free intraperitoneal fluid or. No evidence of adenopathy. Gaseous colon with minimal stool in colon. No bowel distention. No evidence of appendicitis or diverticulitis. Multiple nondistended fluid filled loops of small bowel. Prostate measures 4 x 3.7 cm with central calcification. Impression: Groundglass lungs may be nonspecific or related to inflammatory or infectious process. Single normal right kidney. Fluid filled loops of small bowel may be nonspecific or related to gastroenteritis.
[2017-03-12 16:42] VITALS: BP 102/78
== END 2017-03-12 16:45 | disposition home or self-care (01) ==
LOC: ED 11:21
DX: K52.9 Noninfective gastroenteritis and colitis, unspecified (principal); I10 Essential (primary) hypertension
CPT/HCPCS: 36415; 74177; 80053; 81001; 83690; 85025; 96361; 96374; 96375; 99284; J1170; J2405; J7030; Q9967

== ENCOUNTER 2017-03-25 19:19 | Emergency (ER) | payer OTHER ==
[2017-03-26] MEDS ORDERED: MOTRIN PO ONE (02:59)
--- NOTE | 2017-03-26 03:00 | Emergency Department Report ---
Upper Extremity - HPI Chief Complaint: Extremity Injury, Upper Stated Complaint: LEFT ELBOW,BILATERAL HAND PAIN Time Seen by Provider: 03/26/17 02:57 Upper Extremity: Left Elbow, Left Hand Occurred When: 4 Days Severity: moderate Symptoms: Yes Pain with Movement, No Deformity, No Limited Range of Movement, No Numbness, No Weakness, No Swelling, No Bruising/Ecchymosis Other History: 52-year-old male past medical history arthritis, hypertension, gout presents with complaint of left elbow pain for 1 week. Patient states that pain is persistent. Denies any direct trauma. 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 States he has been taking Motrin with minimal relief of pain. Denies any fevers or chills. Also complaining of persistent bilateral hand aches or some left than the right. Denies any trauma to hands. ED Review of Systems ROS: Stated complaint: LEFT ELBOW,BILATERAL HAND PAIN Other details as noted in HPI Constitutional: denies: chills, fever Eyes: denies: eye pain, eye discharge, vision change ENT: denies: ear pain, throat pain Respiratory: denies: cough, shortness of breath, wheezing Cardiovascular: denies: chest pain, palpitations Endocrine: no symptoms reported Gastrointestinal: denies: abdominal pain, nausea, diarrhea Genitourinary: denies: urgency, dysuria Musculoskeletal: as per HPI, arthralgia (left hand and elbow). denies: back pain, joint swelling Skin: denies: rash, lesions Neurological: denies: headache, weakness, paresthesias Psychiatric: denies: anxiety, depression Hematological/Lymphatic: denies: easy bleeding, easy bruising ED Past Medical Hx - Past Medical History Previous Medical History?: Yes Hx Hypertension: Yes Hx Congestive Heart Failure: No Hx Diabetes: No Hx Deep Vein Thrombosis: No Hx Arthritis: Yes Hx Asthma: No Hx COPD: No Hx HIV: No Additional medical history: diverticulitis,. only right kidney. gout - Surgical History Hx Pacemaker: No Hx Internal Defibrillator: No Additional Surgical History: colostomy 10/24/12, reversal of colostomy 2013, left kidney removed 1971, left knee surgery 2013. abd surgery x 2,. HERNIA - Social History Smoking Status: Never Smoker Substance Use Type: None - Medications Home Medications: Home Medications Medication Instructions Recorded Confirmed Last Taken Type Ibuprofen [Motrin 800 MG tab] 800 mg PO Q8HR PRN #20 tablet 03/31/16 Unknown Rx Acetaminophen/Codeine [Tylenol #3] 1 tab PO Q4HR PRN #20 tablet 06/01/16 Unknown Rx Furosemide [Lasix TAB] 20 mg PO QDAY #7 tablet 06/01/16 Unknown Rx Lisinopril [Zestril TAB] 10 mg PO QDAY #40 tablet 06/01/16 Unknown Rx Ciprofloxacin [Ciprofloxacin ORAL 500 mg PO BID #24 ml 08/02/16 Unknown Rx LIQ] metroNIDAZOLE [Flagyl] 500 mg PO Q12HR #24 tab 08/02/16 Unknown Rx traMADol [Ultram 50 MG tab] 50 mg PO Q6H #8 tablet 10/02/16 Unknown Rx Cephalexin [Keflex] 500 mg PO Q12HR #14 cap 11/08/16 Unknown Rx Ibuprofen [Motrin] 800 mg PO Q8HR PRN #25 tablet 11/08/16 Unknown Rx HYDROcodone/APAP 5-325 [[place] 1 each PO Q6HR PRN #14 tablet 03/12/17 Unknown Rx 5/325] Ondansetron [Zofran Odt] 4 mg PO Q8HR PRN #20 tab.rapdis 03/12/17 Unknown Rx Acetaminophen [Acetaminophen TAB] 500 mg PO Q6HR PRN #30 tablet 03/26/17 Unknown Rx traMADol [Ultram 50 MG tab] 50 mg PO Q6HR PRN #12 tablet 03/26/17 Unknown Rx Upper Extremity Exam - Exam General: Vital signs noted. No distress. Alert and acting appropriately. Head and Torso: No HEENT Abnormality, No Neck Tenderness, No Chest/Lungs Abnormality, No Abdominal Tenderness, No Back Tenderness Shoulder Exam: Yes Normal Range of Motion in Shoulder, No Shoulder Tenderness, No Clavicle Tenderness, No Shoulder Deformity, No AC Joint Tenderness Arm Exam: No Arm/Humerus Tenderness, No Arm Deformity Elbow: Yes Elbow Tenderness (pain at tip of elbow, some surrounding swelling, no cellulitis or abscess), Yes Normal Range of Motion in Elbow (elbow flexion and extension intact on exam), No Elbow Deformity Forearm: No Forearm Tenderness, No Forearm Deformity, No Pain with Pronation ( nation and supination intact), No Pain with Supination Wrist: Yes Normal ROM in Wrist (bilateral hand range of motion fingers and wrists intact on exam), No Wrist Tenderness, No Wrist Deformity, No Snuffbox Tenderness, No Pain with Axial Thumb Compression Hand: Yes Normal ROM in Digit(s), No Hand Tenderness, No Hand Deformity, No Digit Tenderness, No Digit(s) Deformity, No Tendon Dysfunction CMS Exam: Yes Normal Distal Pulses (distal radial ulnar and brachial pulses intact both upper extremities), Yes Normal Capillary Refill, Yes Normal Distal Sensation, No Broken Skin Front/Back of Body, Lg (Color): 1 - pain here ED Course Vital Signs 03/25/17 03/25/17 19:52 20:21 Temperature 98.1 F 98.7 F Pulse Rate 70 66 Respiratory 16 17 Rate Blood Pressure 149/107 149/107 O2 Sat by Pulse 100 99 Oximetry ED Medical Decision Making - Medical Decision Making A/P: Left Olecranon bursitis, arthritis, possible early gout flare 1-x-ray left elbow shows small osteophyte formation at tip of elbow. This is consistent with the patient's clinical symptoms. 2-short course of Ultram, extra strength Tylenol. LUE neurovascularly intact 3-follow up with orthopedics. RICE therapy, Travis wrap left elbow Critical care attestation.: If time is entered above; I have spent that time in minutes in the direct care of this critically ill patient, excluding procedure time. ED Disposition Clinical Impression: Olecranon bursitis of left elbow Chronic hand pain Qualifiers: Laterality: left Qualified Code(s): M79.642 - Pain in left hand; G89.29 - Other chronic pain; G89.29 - Other chronic pain Disposition: - TO HOME OR SELFCARE Is pt being admited?: No Does the pt Need Aspirin: No Condition: Stable Instructions: Elbow Bursitis (ED), Arthralgia (ED), RICE Therapy (ED), Osteoarthritis (ED) Prescriptions: Acetaminophen [Acetaminophen TAB] 500 mg PO Q6HR PRN #30 tablet PRN Reason: Pain traMADol [Ultram 50 MG tab] 50 mg PO Q6HR PRN #12 tablet PRN Reason: Pain Referrals: [facility] [Provider Group] - 3-5 Days ROGER,RONNIE RADHA, MD [Staff Physician] - 3-5 Days Forms: Work/School Release Form(ED) Time of Disposition: 04:20
[2017-03-26] MEDS ORDERED: TYLENOL #3 PO ONE (03:50)
[2017-03-26 06:55] VITALS: BP 146/103
--- NOTE | 2017-03-26 11:36 | XRay Report ---
FINAL REPORT EXAM: XRAY ELBOW COMPLETE LEFT HISTORY: lt elbow pain TECHNIQUE: Three views of the left elbow were obtained. FINDINGS: There is a small posterior calcaneal spur. There is no evidence of fracture or joint effusion. The radial head appears intact. IMPRESSION: Small posterior calcaneal spur. Otherwise unremarkable exam.
--- NOTE | 2017-03-26 11:36 | XRay Report ---
FINAL REPORT EXAM: XRAY HAND 2 VIEWS LEFT HISTORY: lt hand pain TECHNIQUE: AP and lateral views of the left hand were obtained. FINDINGS: There is no evidence of fracture or soft tissue injury. There is no evidence of arthritic changes. The wrist joint appears intact. IMPRESSION: No acute process identified.
== END 2017-03-26 05:00 | disposition home or self-care (01) ==
LOC: ED 19:19
DX: M70.22 Olecranon bursitis, left elbow (principal); I10 Essential (primary) hypertension; M19.90 Unspecified osteoarthritis, unspecified site; Y93.89 Activity, other specified
CPT/HCPCS: 99283

== ENCOUNTER 2017-03-28 21:33 | Emergency (ER) | payer OTHER ==
[2017-03-29 01:15] LABS: Basophils % (Auto) 0.6 % (0.0-1.8); Eosinophils % (Auto) 0.6 % (0.0-4.3); Hematocrit 37.8 % (35.5-45.6); Hemoglobin 12.4 gm/dl (11.8-15.2); Mean Corpuscular HGB Conc 33 % (32-34); Mean Corpuscular Hemoglobin 29 pg (28-32); Mean Corpuscular Volume 88 fl (84-94); Platelet Count 259 K/mm3 (140-440); Red Blood Count 4.31 M/mm3 (3.65-5.03); Red Cell Distribution Width 14.6 % (13.2-15.2); White Blood Count 7.4 K/mm3 (4.5-11.0)
[2017-03-29 01:55] LABS: Anion Gap 19 mmol/L; BUN/Creatinine Ratio 13; Blood Urea Nitrogen 13 mg/dL (9-20); Calcium 8.9 mg/dL (8.4-10.2); Carbon Dioxide 21 mmol/L (22-30); Chloride 95.6 mmol/L (98-107); Glucose 97 mg/dL (75-100); Potassium 4.5 mmol/L (3.6-5.0); Sodium 131 mmol/L (137-145)
[2017-03-29] MEDS ORDERED: BACTRIM DS PO ONE (06:53)
[2017-03-29] MEDS ORDERED: VIBRAMYCIN PO ONE (06:53)
[2017-03-29] MEDS ORDERED: CATAPRES PO ONE (06:54)
[2017-03-29] MEDS ORDERED: NORCO 7.5/325 PO ONE (06:54)
[2017-03-29] MEDS ORDERED: TORADOL IM ONE (06:55)
[2017-03-29 08:10] VITALS: BP 122/78
--- NOTE | 2017-03-29 09:17 | Emergency Department Report ---
HPI - General Chief Complaint: Extremity Problem,Nontraumatic Time Seen by Provider: 03/29/17 06:15 - HPI HPI: The patient's 52-year-old male presents for evaluation of left arm pain. The patient has a history of chronic left elbow and wrist pain and olecranon bursitis. The patient reports constant distal left arm pain for the past 3 days , 9/10 in severity, throbbing in quality, exacerbated with movement of the wrist or forearm, and radiating proximally. The patient denies trauma to the hand, wrist, or forearm, puncture stab wound, chills, night sweats, fever, paresthesias, or motor deficit in the left upper extremity or hand. ED Past Medical Hx - Past Medical History Previous Medical History?: Yes Hx Hypertension: Yes Hx Congestive Heart Failure: No Hx Diabetes: No Hx Deep Vein Thrombosis: No Hx Arthritis: Yes Hx Asthma: No Hx COPD: No Hx HIV: No Additional medical history: diverticulitis,. only right kidney. gout - Surgical History Past Surgical History?: Yes Hx Pacemaker: No Hx Internal Defibrillator: No Additional Surgical History: colostomy 10/24/12, reversal of colostomy 2013, left kidney removed 1971, left knee surgery 2013. abd surgery x 2,. HERNIA - Social History Smoking Status: Never Smoker Substance Use Type: Alcohol - Medications Home Medications: Home Medications Medication Instructions Recorded Confirmed Last Taken Type Ibuprofen [Motrin 800 MG tab] 800 mg PO Q8HR PRN #20 tablet 03/31/16 Unknown Rx Acetaminophen/Codeine [Tylenol #3] 1 tab PO Q4HR PRN #20 tablet 06/01/16 Unknown Rx Furosemide [Lasix TAB] 20 mg PO QDAY #7 tablet 06/01/16 Unknown Rx Lisinopril [Zestril TAB] 10 mg PO QDAY #40 tablet 06/01/16 Unknown Rx Ciprofloxacin [Ciprofloxacin ORAL 500 mg PO BID #24 ml 08/02/16 Unknown Rx LIQ] metroNIDAZOLE [Flagyl] 500 mg PO Q12HR #24 tab 08/02/16 Unknown Rx traMADol [Ultram 50 MG tab] 50 mg PO Q6H #8 tablet 10/02/16 Unknown Rx Cephalexin [Keflex] 500 mg PO Q12HR #14 cap 11/08/16 Unknown Rx Ibuprofen [Motrin] 800 mg PO Q8HR PRN #25 tablet 11/08/16 Unknown Rx HYDROcodone/APAP 5-325 [[place] 1 each PO Q6HR PRN #14 tablet 03/12/17 Unknown Rx 5/325] Ondansetron [Zofran Odt] 4 mg PO Q8HR PRN #20 tab.rapdis 03/12/17 Unknown Rx Acetaminophen [Acetaminophen TAB] 500 mg PO Q6HR PRN #30 tablet 03/26/17 Unknown Rx traMADol [Ultram 50 MG tab] 50 mg PO Q6HR PRN #12 tablet 03/26/17 Unknown Rx Acetaminophen/Codeine [Tylenol #3] 1 tab PO Q6H PRN #14 tab 03/29/17 Unknown Rx Doxycycline Hyclate [Doxycycline 100 mg PO Q12HR #20 tab 03/29/17 Unknown Rx Hyclate TAB] Ibuprofen [Motrin] 800 mg PO Q8HR PRN #15 tablet 03/29/17 Unknown Rx Sulfamethoxazole/Trimethoprim 1 each PO BID #20 tablet 03/29/17 Unknown Rx [Bactrim DS TAB] ED Review of Systems ROS: Stated complaint: LT HAND PAIN/SWELLING; H/A Other details as noted in HPI Constitutional: denies: fever ENT: denies: throat or neck pain Respiratory: denies: cough, shortness of breath Cardiovascular: denies: chest pain Endocrine: denies unexplained weight loss or gain Gastrointestinal: denies: abdominal pain, nausea Genitourinary: denies: dysuria Musculoskeletal: reports left forearm and hand tenderness and redness denies: leg swelling Skin: denies: rash Neurological: denies: headache Hematological/Lymphatic: denies: easy bleeding or easy bruising Psych: denies sadness or hopelessness Physical Exam - Physical Exam Vital Signs: Vital Signs 03/29/17 03/29/17 03/29/17 00:45 04:05 08:09 Temperature 98.2 F 98 F 97.7 F Pulse Rate 83 88 70 Respiratory 18 16 Rate Blood Pressure 159/102 Blood Pressure 137/99 122/78 [Left] O2 Sat by Pulse 99 97 Oximetry Physical Exam: General: well-nourished, well-developed, no acute distress Head: Normocephalic, atraumatic Eyes: normal sclera ENT: Mucous membranes are pink and moist Neck: trachea midline, neck supple, No neck stiffness, no cervical adenopathy Respiratory: Breath sounds equal bilaterally, no wheezing, rales, or rhonchi Cardio: S1 and S2 present, no murmurs, rubs, gallops, capillary refill is brisk Abdomen: Normoactive bowel sounds, soft abdomen, no rigidity, no guarding or rebound tenderness Chest WALL/Back: No tenderness to palpation of the chest wall, no CVA tenderness with percussion Musc: Distal left forearm radius and tenderness to palpation present to the dorsal surface, no redness or swelling overlying the flexor tendon sheath, arm and hand compartments are soft and pliable, no sensation or motor deficits in the left arm at the elbow, wrist, or digits of the hand, no fusiform swelling of the digits, no fluctuance, no crepitus, distal pulses intact, no signs of compartment syndrome Skin: No rash Neuro: no facial drooping, normal speech Psych: Normal affect ED Course Vital Signs 03/29/17 03/29/17 03/29/17 00:45 04:05 08:09 Temperature 98.2 F 98 F 97.7 F Pulse Rate 83 88 70 Respiratory 18 16 Rate Blood Pressure 159/102 Blood Pressure 137/99 122/78 [Left] O2 Sat by Pulse 99 97 Oximetry ED Medical Decision Making - Lab Data Result diagrams: 03/29/17 00:58 03/29/17 00:58 - Medical Decision Making The patient was seen and examined by myself. The patient is placed on a electronic device monitor and continuous pulse ox. On initial evaluation, the patient was found to be in no distress. Evaluation orders were placed. The patient is given IM dose of Toradol for his pain. The patient is given antibiotic for treatment of left forearm cellulitis. The patient is given a tablet of clonidine for his elevated blood pressure. The patient was reevaluated and reported that his pain was improved. The patient is stable for discharge with outpatient follow-up. The patient is given follow-up and return instructions. The patient expressed understanding and agreed with the plan. The patient is discharged in stable condition. Critical care attestation.: If time is entered above; I have spent that time in minutes in the direct care of this critically ill patient, excluding procedure time. ED Disposition Clinical Impression: Cellulitis of left arm, Pain in left forearm Olecranon bursitis Qualifiers: Laterality: left Qualified Code(s): M70.22 - Olecranon bursitis, left elbow Disposition: DC-01 TO HOME OR SELFCARE Is pt being admited?: No Does the pt Need Aspirin: No Condition: Stable Instructions: Cellulitis (ED), Musculoskeletal Pain (ED) Referrals: PRIMARY CARE, [Primary Care Provider] - 3-5 Days Time of Disposition: 08:18
== END 2017-03-29 09:09 | disposition home or self-care (01) ==
LOC: ED 21:33
DX: L03.114 Cellulitis of left upper limb (principal); M70.22 Olecranon bursitis, left elbow; I10 Essential (primary) hypertension
CPT/HCPCS: 36415; 80048; 85025; 96372; 99284; J1885

== ENCOUNTER 2017-05-16 12:16 | Emergency (ER) | payer SELFPAY ==
[2017-05-16 14:21] LABS: Basophils % (Auto) 0.3 % (0.0-1.8); Eosinophils % (Auto) 0.1 % (0.0-4.3); Hematocrit 46.3 % (35.5-45.6); Hemoglobin 15.2 gm/dl (11.8-15.2); Lymphocytes # (Auto) 0.4 K/mm3 (1.2-5.4); Lymphocytes % (Auto) 6.1 % (13.4-35.0); Mean Corpuscular HGB Conc 33 % (32-34); Mean Corpuscular Hemoglobin 29 pg (28-32); Mean Corpuscular Volume 88 fl (84-94); Monocytes # (Auto) 0.4 K/mm3 (0.0-0.8); Monocytes % (Auto) 6.2 % (0.0-7.3); Platelet Count 309 K/mm3 (140-440); Red Blood Count 5.25 M/mm3 (3.65-5.03); Red Cell Distribution Width 14.9 % (13.2-15.2)
[2017-05-16 14:39] LABS: BUN/Creatinine Ratio 13; Blood Urea Nitrogen 14 mg/dL (9-20); Hemolysis Index 97
[2017-05-16 17:09] LABS: Bacteria,Urine 1+ /HPF (Negative); Bilirubin,Urine NEG (Negative); Blood,Urine MOD (Negative); Color,Urine Yellow (Yellow); Mucus,Urine FEW /HPF; Nitrite,Urine NEG (Negative); Urobilinogen,Urine < 2.0 mg/dL (<2.0)
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
[2017-05-17] MEDS ORDERED: NACL 0.9% 1000 ML 1,000 ML IV ONE (07:06)
[2017-05-17] MEDS ORDERED: SUBLIMAZE IV ONE ×2 (07:06→09:53)
[2017-05-17] MEDS ORDERED: ZOFRAN IV ONE (07:06)
--- NOTE | 2017-05-17 07:13 | Emergency Department Report ---
HPI - General Chief Complaint: Chest Pain Time Seen by Provider: 05/17/17 06:30 - HPI HPI: Room 5 The patient is a 52-year-old male presenting with a chief complaint of abdominal pain. The patient states 2 days ago he developed epigastric abdominal pain without radiation associated with nausea and vomiting. Patient describes pain as sharp and cramping in nature. The patient states the pain has been intermittent and associated with chills. Patient denies fever. Patient denies any forms of chest pain. Patient currently gets his pain a score of 8.5/10 Location: Abdomen Duration: 2 days intermittently Quality: Sharp and cramping Severity: 8.5/10 Modifying factors: [see above] Context: [see above] Mode of transportation: [not driving] ED Past Medical Hx - Past Medical History Hx Hypertension: Yes Hx Arthritis: Yes Additional medical history: diverticulitis,. only right kidney. gout - Surgical History Additional Surgical History: colostomy 10/24/12, reversal of colostomy 2013, left kidney removed 1971, left knee surgery 2013. abd surgery x 2,. HERNIA - Family History Family history: no significant - Social History Smoking Status: Former Smoker Substance Use Type: None (denies illicit drug use), Alcohol (rarely) - Medications Home Medications: Home Medications Medication Instructions Recorded Confirmed Last Taken Type Ibuprofen [Motrin 800 MG tab] 800 mg PO Q8HR PRN #20 tablet 03/31/16 Unknown Rx Acetaminophen/Codeine [Tylenol #3] 1 tab PO Q4HR PRN #20 tablet 06/01/16 Unknown Rx Furosemide [Lasix TAB] 20 mg PO QDAY #7 tablet 06/01/16 Unknown Rx Lisinopril [Zestril TAB] 10 mg PO QDAY #40 tablet 06/01/16 Unknown Rx Ciprofloxacin [Ciprofloxacin ORAL 500 mg PO BID #24 ml 08/02/16 Unknown Rx LIQ] metroNIDAZOLE [Flagyl] 500 mg PO Q12HR #24 tab 08/02/16 Unknown Rx traMADol [Ultram 50 MG tab] 50 mg PO Q6H #8 tablet 10/02/16 Unknown Rx Cephalexin [Keflex] 500 mg PO Q12HR #14 cap 11/08/16 Unknown Rx Ibuprofen [Motrin] 800 mg PO Q8HR PRN #25 tablet 11/08/16 Unknown Rx Ibuprofen [Motrin 600 MG tab] 600 mg PO Q8H PRN #20 tablet 11/12/16 Unknown Rx predniSONE [Deltasone] 20 mg PO BID #10 tab 11/12/16 Unknown Rx HYDROcodone/APAP 5-325 [[place] 1 each PO Q6HR PRN #14 tablet 03/12/17 Unknown Rx 5/325] Ondansetron [Zofran Odt] 4 mg PO Q8HR PRN #20 tab.rapdis 03/12/17 Unknown Rx Acetaminophen [Acetaminophen TAB] 500 mg PO Q6HR PRN #30 tablet 03/26/17 Unknown Rx traMADol [Ultram 50 MG tab] 50 mg PO Q6HR PRN #12 tablet 03/26/17 Unknown Rx Acetaminophen/Codeine [Tylenol #3] 1 tab PO Q6H PRN #14 tab 03/29/17 Unknown Rx Doxycycline Hyclate [Doxycycline 100 mg PO Q12HR #20 tab 03/29/17 Unknown Rx Hyclate TAB] Ibuprofen [Motrin] 800 mg PO Q8HR PRN #15 tablet 03/29/17 Unknown Rx Sulfamethoxazole/Trimethoprim 1 each PO BID #20 tablet 03/29/17 Unknown Rx [Bactrim DS TAB] Famotidine [Pepcid] 20 mg PO BID #30 tablet 05/17/17 Unknown Rx HYDROcodone/APAP 5-325 [[place] 1 - 2 each PO Q6HR PRN #14 tablet 05/17/17 Unknown Rx 5/325] Promethazine [Phenergan TAB] 25 mg PO Q6HR PRN #20 tab 05/17/17 Unknown Rx Promethazine [Phenergan] 25 mg [place] Q6HR PRN #5 supp.rect 05/17/17 Unknown Rx ED Review of Systems ROS: Stated complaint: ABD PAIN VOMITING Other details as noted in HPI Constitutional: chills. denies: fever Cardiovascular: denies: chest pain Gastrointestinal: abdominal pain, nausea, vomiting Musculoskeletal: denies: back pain Physical Exam - Physical Exam Vital Signs: Vital Signs 05/16/17 05/17/17 05/17/17 13:47 02:49 06:33 Temperature 98.4 F 98.2 F Pulse Rate 107 H 84 90 Respiratory 20 20 Rate Blood Pressure 129/94 119/89 O2 Sat by Pulse 99 96 Oximetry 05/17/17 05/17/17 06:46 07:00 Temperature Pulse Rate 71 66 Respiratory 12 13 Rate Blood Pressure 130/88 115/86 O2 Sat by Pulse 97 95 Oximetry Physical Exam: GENERAL: The patient is well-developed well-nourished male lying on stretcher not appearing to be in acute distress. [] HEENT: Normocephalic. Atraumatic. Extraocular motions are intact. Patient has moist mucous membranes. NECK: Supple. Trachea midline CHEST/LUNGS: Clear to auscultation. There is no respiratory distress noted. HEART/CARDIOVASCULAR: Regular. There is no tachycardia. There is no gallop rub or murmur. ABDOMEN: Abdomen is soft, with discomfort to palpation in all quadrants except the right upper quadrant. Patient has normal bowel sounds. There is no abdominal distention. SKIN: There is no rash. There is no edema. There is no diaphoresis. NEURO: The patient is awake, alert, and oriented. The patient is cooperative. The patient has normal speech MUSCULOSKELETAL: There is no evidence of acute injury. ED Course Vital Signs 05/16/17 05/17/17 05/17/17 13:47 02:49 06:33 Temperature 98.4 F 98.2 F Pulse Rate 107 H 84 90 Respiratory 20 20 Rate Blood Pressure 129/94 119/89 O2 Sat by Pulse 99 96 Oximetry 05/17/17 05/17/17 06:46 07:00 Temperature Pulse Rate 71 66 Respiratory 12 13 Rate Blood Pressure 130/88 115/86 O2 Sat by Pulse 97 95 Oximetry ED Medical Decision Making - Lab Data Result diagrams: 05/16/17 13:58 05/16/17 13:58 Laboratory Tests 05/16/17 05/16/17 05/16/17 13:58 13:58 13:58 WBC 7.2 RBC 5.25 H Hgb 15.2 Hct 46.3 H MCV 88 MCH 29 MCHC 33 RDW 14.9 Plt Count 309 Lymph % (Auto) 6.1 L [place] % (Auto) 6.2 Eos % (Auto) 0.1 Baso % (Auto) 0.3 Lymph # 0.4 L [place] # 0.4 Eos # 0.0 Baso # 0.0 Seg Neutrophils % 87.3 H Seg Neutrophils # 6.3 Sodium 137 Potassium 4.8 Chloride 96.4 L Carbon Dioxide 23 Anion Gap 22 BUN 14 Creatinine 1.1 Estimated GFR > 60 BUN/Creatinine Ratio 13 Glucose 120 H Calcium 9.0 Troponin T < 0.010 Lipase 26 Urine Color Urine Turbidity Urine pH Ur Specific [place] Urine Protein Urine Glucose (UA) Urine Ketones Urine Blood Urine Nitrite Urine Bilirubin Urine Urobilinogen Ur Leukocyte Esterase Urine WBC (Auto) Urine RBC (Auto) U Epithel Cells (Auto) Urine Bacteria (Auto) Urine Mucus 05/16/17 05/16/17 05/16/17 16:50 19:30 20:55 WBC RBC Hgb Hct MCV MCH MCHC RDW Plt Count Lymph % (Auto) [place] % (Auto) Eos % (Auto) Baso % (Auto) Lymph # [place] # Eos # Baso # Seg Neutrophils % Seg Neutrophils # Sodium Potassium Chloride Carbon Dioxide Anion Gap BUN Creatinine Estimated GFR BUN/Creatinine Ratio Glucose Calcium Troponin T < 0.010 < 0.010 Lipase Urine Color Yellow Urine Turbidity Clear Urine pH 5.0 Ur Specific [place] 1.026 Urine Protein 30 mg/dl Urine Glucose (UA) Neg Urine Ketones Neg Urine Blood Mod Urine Nitrite Neg Urine Bilirubin Neg Urine Urobilinogen < 2.0 Ur Leukocyte Esterase Neg Urine WBC (Auto) 1.0 Urine RBC (Auto) 1.0 U Epithel Cells (Auto) < 1.0 Urine Bacteria (Auto) 1+ Urine Mucus Few - Radiology Data Radiology results: report reviewed (CT abdomen and pelvis), image reviewed (CT abdomen and pelvis, chest x-ray) interpreted by me: Chest x-ray-no focal infiltrates, no pneumothorax CT ABDOMEN AND PELVIS WITH CONTRAST INDICATION: Diffuse abdominal pain, nausea, vomiting. COMPARISON: 03/12/2017. FINDINGS: Abdomen and pelvis CT performed following intravenous administration of 100 cc of Omnipaque 300. LUNG BASES: Slight lingular scarring again noted. Mild improved bibasilar dependent atelectasis posteriorly. ABDOMEN: Stable, grossly unremarkable liver, spleen, gallbladder, pancreas, adrenals, aorta, IVC and the right kidney. Minimal right suprarenal perinephric stranding again noted as also left nephrectomy with bowel occupying the left renal fossa. Nonopacified GI tract evaluation limited, though overall nonobstructive with fluid noted throughout. Small bowel anastomosis again noted in the midline with maximum caliber of 4.3 cm, axial image 152, series 2, rapidly tapering to a normal caliber. Normal appendix. Fluid noted throughout the colon and the rectosigmoid. No ascites or size significant adenopathy. PELVIS: Grossly unremarkable urinary bladder, seminal vesicles and prostate. Rectosigmoid fluid. No free fluid or significant adenopathy. Stable anterior abdominal wall post surgical changes, including left lower quadrant ventral wall hernia [place]. Right SI joint degenerative bridging and left lower flank muscle atrophy/fatty replacement also again seen. CONCLUSION: CT appearance may suggest gastroenteritis in an appropriate setting with few other findings as small bowel anastomosis, anterior abdominal wall postsurgical changes and absent left kidney again noted, as described. Please correlate. Thank you for the opportunity to participate in this patient's care. Transcribed By: RS Dictated By: RENETTA BARCENAS MD Electronically Authenticated By: RENETTA BARCENAS MD Signed Date/Time: 05/17/17808 DD/ 5 TD/TT: 05/17/17808 - Differential Diagnosis gastritis, peptic ulcer disease, colitis, pancreatitis Critical care attestation.: If time is entered above; I have spent that time in minutes in the direct care of this critically ill patient, excluding procedure time. ED Disposition Clinical Impression: Abdominal pain, Nausea & vomiting Disposition: - TO HOME OR SELFCARE Is pt being admited?: No Does the pt Need Aspirin: No Condition: Stable Instructions: Acute Abdominal Pain (ED) Additional Instructions: Return to the emergency department immediately should you develop worsening symptoms, fever, inability to tolerate food or liquid or any other concerns. Prescriptions: Famotidine [Pepcid] 20 mg PO BID #30 tablet HYDROcodone/APAP 5-325 [[place] 5/325] 1 - 2 each PO Q6HR PRN #14 tablet PRN Reason: Pain Promethazine [Phenergan TAB] 25 mg PO Q6HR PRN #20 tab PRN Reason: Nausea Promethazine [Phenergan] 25 mg [place] Q6HR PRN #5 supp.rect PRN Reason: Vomiting Referrals: [facility] [Outside] - 3-5 Days ARLEN LAWSON MD [Staff Physician] - 3-5 Days (Dr. Lawson is a product advisor. Please follow with him for further evaluation) Time of Disposition: 10:02
--- NOTE | 2017-05-17 08:17 | Cat Scan Report ---
CT ABDOMEN AND PELVIS WITH CONTRAST INDICATION: Diffuse abdominal pain, nausea, vomiting. COMPARISON: 03/12/2017. FINDINGS: Abdomen and pelvis CT performed following intravenous administration of 100 cc of Omnipaque 300. LUNG BASES: Slight lingular scarring again noted. Mild improved bibasilar dependent atelectasis posteriorly. ABDOMEN: Stable, grossly unremarkable liver, spleen, gallbladder, pancreas, adrenals, aorta, IVC and the right kidney. Minimal right suprarenal perinephric stranding again noted as also left nephrectomy with bowel occupying the left renal fossa. Nonopacified GI tract evaluation limited, though overall nonobstructive with fluid noted throughout. Small bowel anastomosis again noted in the midline with maximum caliber of 4.3 cm, axial image 152, series 2, rapidly tapering to a normal caliber. Normal appendix. Fluid noted throughout the colon and the rectosigmoid. No ascites or size significant adenopathy. PELVIS: Grossly unremarkable urinary bladder, seminal vesicles and prostate. Rectosigmoid fluid. No free fluid or significant adenopathy. Stable anterior abdominal wall post surgical changes, including left lower quadrant ventral wall hernia [place]. Right SI joint degenerative bridging and left lower flank muscle atrophy/fatty replacement also again seen. CONCLUSION: CT appearance may suggest gastroenteritis in an appropriate setting with few other findings as small bowel anastomosis, anterior abdominal wall postsurgical changes and absent left kidney again noted, as described. Please correlate. Thank you for the opportunity to participate in this patient's care.
[2017-05-17] MEDS ORDERED: SUBLIMAZE ONE (09:53)
[2017-05-17 10:13] VITALS: BP 126/81
== END 2017-05-17 10:24 | disposition home or self-care (01) ==
LOC: ED 12:16
DX: R10.13 Epigastric pain (principal); R11.2 Nausea with vomiting, unspecified; I10 Essential (primary) hypertension; M19.90 Unspecified osteoarthritis, unspecified site; Z87.891 Personal history of nicotine dependence
CPT/HCPCS: 36415; 71046; 74177; 80048; 81001; 83690; 84484; 85025; 93005; 93010; 96361; 96374; 96375; 96376; 99285; J2405; J3010; J7030; Q9967

== ENCOUNTER 2017-10-14 17:28 | Emergency (ER) | payer SELFPAY ==
[2017-10-14 17:39] VITALS: BP 137/101
[2017-10-14 18:05] LABS: Basophils # (Auto) 0.1 K/mm3 (0.0-0.1); Basophils % (Auto) 1.1 % (0.0-1.8); Eosinophils % (Auto) 0.8 % (0.0-4.3); Hematocrit 43.6 % (35.5-45.6); Lymphocytes # (Auto) 1.8 K/mm3 (1.2-5.4); Mean Corpuscular HGB Conc 32 % (32-34); Mean Corpuscular Hemoglobin 28 pg (28-32); Mean Corpuscular Volume 87 fl (84-94); Monocytes # (Auto) 0.4 K/mm3 (0.0-0.8); Monocytes % (Auto) 8.7 % (0.0-7.3); Platelet Count 310 K/mm3 (140-440); Red Cell Distribution Width 15.4 % (13.2-15.2)
[2017-10-14 20:10] LABS: Alanine Aminotransferase 14 units/L (7-56); Albumin 4.1 g/dL (3.9-5); BUN/Creatinine Ratio 16; Blood Urea Nitrogen 18 mg/dL (9-20); Hemolysis Index 11
[2017-10-14 20:31] LABS: Bilirubin,Urine NEG (Negative); Blood,Urine SM (Negative); Color,Urine Yellow (Yellow); Mucus,Urine FEW /HPF; Protein,Urine <15 mg/dL mg/dL (Negative); Urobilinogen,Urine < 2.0 mg/dL (<2.0)
== END 2017-10-14 18:00 | disposition left against medical advice (07) ==
LOC: ED 17:28
DX: R10.9 Unspecified abdominal pain (principal); Z53.21 Procedure and treatment not carried out due to patient leaving prior to being seen by health care provider
CPT/HCPCS: 36415; 80053; 81001; 85025

== ENCOUNTER 2017-10-22 16:45 | Emergency (ER) | payer SELFPAY ==
[2017-10-22] MEDS ORDERED: ASPIRIN PO ONE (17:04)
[2017-10-22 18:15] LABS: Basophils % (Auto) 1.4 % (0.0-1.8); Eosinophils % (Auto) 1.1 % (0.0-4.3); Hematocrit 42.3 % (35.5-45.6); Hemoglobin 13.9 gm/dl (11.8-15.2); Lymphocytes % (Auto) 39.6 % (13.4-35.0); Mean Corpuscular HGB Conc 33 % (32-34); Mean Corpuscular Hemoglobin 29 pg (28-32); Mean Corpuscular Volume 87 fl (84-94); Monocytes % (Auto) 10.8 % (0.0-7.3); Platelet Count 257 K/mm3 (140-440); Red Blood Count 4.84 M/mm3 (3.65-5.03)
[2017-10-22 18:27] LABS: BUN/Creatinine Ratio 14; Blood Urea Nitrogen 18 mg/dL (9-20); Calcium 9.4 mg/dL (8.4-10.2); Hemolysis Index 3
[2017-10-22 18:30] LABS: Lymphocytes # (Auto) 1.5 K/mm3 (1.2-5.4); Monocytes # (Auto) 0.4 K/mm3 (0.0-0.8)
[2017-10-23] MEDS ORDERED: TORADOL IM ONE (00:45)
--- NOTE | 2017-10-23 01:05 | XRay Report ---
FINAL REPORT EXAM: XR CHEST 1V AP HISTORY: chest pain TECHNIQUE: A portable upright view the chest was obtained and compared to the study of 05/16/2017. FINDINGS: The heart size and mediastinum appear normal. The lungs are clear. Pleural fluid is not seen. The soft tissues reveal metallic fragments in the left axilla unchanged from the previous study. IMPRESSION: No active chest disease.
--- NOTE | 2017-10-23 01:42 | Emergency Department Report ---
ED Chest Pain HPI - General Chief Complaint: Chest Pain Stated Complaint: CHEST PAIN/HEAVY LIFTING Time Seen by Provider: 10/23/17 00:32 Source: patient Mode of arrival: Wheelchair Limitations: No Limitations - History of Present Illness Initial Comments: Mr Turner is a 52 year-old man with hx of HTN, gout, one kidney, multiple abdominal surgeries who presents from home with chest pain. he works moving heavy boxes. onset this afternoon while at work, moving boxes. Pain in left side of the chest, does not radiate. hurts to push on his chest. Pain with deep breathing. No fever. Also report intermittent bilateral foot tingling while at work, none today. Also, yesterday, had a couple episodes where he felt light headed, did nto pass out. Was always when standing up. Improved with rest or sitting down. None today. No home BP medications. No smoking. MD Complaint: chest pain -: Sudden Onset: during exertion Pain Location: left chest Pain Radiation: none Severity: moderate Severity scale (0 -10): 8 Quality: sharp Consistency: other (when moving chest wall) Improves With: rest Worsens With: movement Context: trauma/injury re: denies: nausea, vomting, diaphoresis, dyspnea Other Symptoms: denies: cough, fever, syncope, palpitations - Related Data Previous Rx's Medication Instructions Recorded Last Taken Type Ibuprofen [Motrin 800 MG tab] 800 mg PO Q8HR PRN #20 tablet 03/31/16 Unknown Rx Acetaminophen/Codeine [Tylenol #3] 1 tab PO Q4HR PRN #20 tablet 06/01/16 Unknown Rx Furosemide [Lasix TAB] 20 mg PO QDAY #7 tablet 06/01/16 Unknown Rx Lisinopril [Zestril TAB] 10 mg PO QDAY #40 tablet 06/01/16 Unknown Rx Ciprofloxacin [Ciprofloxacin ORAL 500 mg PO BID #24 ml 08/02/16 Unknown Rx LIQ] metroNIDAZOLE [Flagyl] 500 mg PO Q12HR #24 tab 08/02/16 Unknown Rx traMADol [Ultram 50 MG tab] 50 mg PO Q6H #8 tablet 10/02/16 Unknown Rx Cephalexin [Keflex] 500 mg PO Q12HR #14 cap 11/08/16 Unknown Rx Ibuprofen [Motrin] 800 mg PO Q8HR PRN #25 tablet 11/08/16 Unknown Rx Ibuprofen [Motrin 600 MG tab] 600 mg PO Q8H PRN #20 tablet 11/12/16 Unknown Rx predniSONE [Deltasone] 20 mg PO BID #10 tab 11/12/16 Unknown Rx HYDROcodone/APAP 5-325 [[place] 1 each PO Q6HR PRN #14 tablet 03/12/17 Unknown Rx 5/325] Ondansetron [Zofran Odt] 4 mg PO Q8HR PRN #20 tab.rapdis 03/12/17 Unknown Rx Acetaminophen [Acetaminophen TAB] 500 mg PO Q6HR PRN #30 tablet 03/26/17 Unknown Rx traMADol [Ultram 50 MG tab] 50 mg PO Q6HR PRN #12 tablet 03/26/17 Unknown Rx Acetaminophen/Codeine [Tylenol #3] 1 tab PO Q6H PRN #14 tab 03/29/17 Unknown Rx Doxycycline Hyclate [Doxycycline 100 mg PO Q12HR #20 tab 03/29/17 Unknown Rx Hyclate TAB] Ibuprofen [Motrin] 800 mg PO Q8HR PRN #15 tablet 03/29/17 Unknown Rx Sulfamethoxazole/Trimethoprim 1 each PO BID #20 tablet 03/29/17 Unknown Rx [Bactrim DS TAB] Famotidine [Pepcid] 20 mg PO BID #30 tablet 05/17/17 Unknown Rx HYDROcodone/APAP 5-325 [[place] 1 - 2 each PO Q6HR PRN #14 tablet 05/17/17 Unknown Rx 5/325] Promethazine [Phenergan TAB] 25 mg PO Q6HR PRN #20 tab 05/17/17 Unknown Rx Promethazine [Phenergan] 25 mg [place] Q6HR PRN #5 supp.rect 05/17/17 Unknown Rx Allergies Allergy/AdvReac Type Severity Reaction Status Date / Time docusate Allergy Vomiting Verified 03/12/17 11:53 docusate sodium [From Colace] Allergy Vomiting Verified 03/12/17 11:53 mag citrate Allergy Nausea Uncoded 11/12/16 14:22 Heart Score - HEART Score History: Slightly suspicious EKG: Normal Age: 45-65 Risk factors: 1-2 risk factors Troponin: < normal limit HEART Score: 2 - Critical Actions Critical Actions: 0-3 pts:0.9-1.7%risk of adverse cardiac event.Candidate for discharge ED Review of Systems ROS: Stated complaint: CHEST PAIN/HEAVY LIFTING Other details as noted in HPI Comment: All other systems reviewed and negative ED Past Medical Hx - Past Medical History Previous Medical History?: Yes Hx Hypertension: Yes Hx Arthritis: Yes Additional medical history: diverticulitis,. only right kidney. gout - Surgical History Past Surgical History?: Yes Additional Surgical History: colostomy 10/24/12, reversal of colostomy 2013, left kidney removed 1971, left knee surgery 2013. abd surgery x 2,. HERNIA - Social History Smoking Status: Never Smoker Substance Use Type: Alcohol - Medications Home Medications: Home Medications Medication Instructions Recorded Confirmed Last Taken Type Ibuprofen [Motrin 800 MG tab] 800 mg PO Q8HR PRN #20 tablet 03/31/16 Unknown Rx Acetaminophen/Codeine [Tylenol #3] 1 tab PO Q4HR PRN #20 tablet 06/01/16 Unknown Rx Furosemide [Lasix TAB] 20 mg PO QDAY #7 tablet 06/01/16 Unknown Rx Lisinopril [Zestril TAB] 10 mg PO QDAY #40 tablet 06/01/16 Unknown Rx Ciprofloxacin [Ciprofloxacin ORAL 500 mg PO BID #24 ml 08/02/16 Unknown Rx LIQ] metroNIDAZOLE [Flagyl] 500 mg PO Q12HR #24 tab 08/02/16 Unknown Rx traMADol [Ultram 50 MG tab] 50 mg PO Q6H #8 tablet 10/02/16 Unknown Rx Cephalexin [Keflex] 500 mg PO Q12HR #14 cap 11/08/16 Unknown Rx Ibuprofen [Motrin] 800 mg PO Q8HR PRN #25 tablet 11/08/16 Unknown Rx Ibuprofen [Motrin 600 MG tab] 600 mg PO Q8H PRN #20 tablet 11/12/16 Unknown Rx predniSONE [Deltasone] 20 mg PO BID #10 tab 11/12/16 Unknown Rx HYDROcodone/APAP 5-325 [[place] 1 each PO Q6HR PRN #14 tablet 03/12/17 Unknown Rx 5/325] Ondansetron [Zofran Odt] 4 mg PO Q8HR PRN #20 tab.rapdis 03/12/17 Unknown Rx Acetaminophen [Acetaminophen TAB] 500 mg PO Q6HR PRN #30 tablet 03/26/17 Unknown Rx traMADol [Ultram 50 MG tab] 50 mg PO Q6HR PRN #12 tablet 03/26/17 Unknown Rx Acetaminophen/Codeine [Tylenol #3] 1 tab PO Q6H PRN #14 tab 03/29/17 Unknown Rx Doxycycline Hyclate [Doxycycline 100 mg PO Q12HR #20 tab 03/29/17 Unknown Rx Hyclate TAB] Ibuprofen [Motrin] 800 mg PO Q8HR PRN #15 tablet 03/29/17 Unknown Rx Sulfamethoxazole/Trimethoprim 1 each PO BID #20 tablet 03/29/17 Unknown Rx [Bactrim DS TAB] Famotidine [Pepcid] 20 mg PO BID #30 tablet 05/17/17 Unknown Rx HYDROcodone/APAP 5-325 [[place] 1 - 2 each PO Q6HR PRN #14 tablet 05/17/17 Unknown Rx 5/325] Promethazine [Phenergan TAB] 25 mg PO Q6HR PRN #20 tab 05/17/17 Unknown Rx Promethazine [Phenergan] 25 mg [place] Q6HR PRN #5 supp.rect 05/17/17 Unknown Rx ED Physical Exam - General Limitations: No Limitations General appearance: alert, in no apparent distress - Head Head exam: Present: atraumatic, normocephalic - Eye Eye exam: Present: normal appearance, PERRL, EOMI - ENT ENT exam: Present: normal exam, normal orophraynx, mucous membranes moist - Neck Neck exam: Present: normal inspection, full ROM. Absent: tenderness - Respiratory Respiratory exam: Present: normal lung sounds bilaterally, chest wall tenderness. Absent: respiratory distress, wheezes, rales - Cardiovascular Cardiovascular Exam: Present: regular rate, normal rhythm. Absent: systolic murmur, diastolic murmur, rubs, gallop - GI/Abdominal GI/Abdominal exam: Present: soft, other (surgical incisional scars). Absent: distended, tenderness, guarding, rebound - Rectal Rectal exam: Present: deferred - Extremities Exam Extremities exam: Present: normal inspection - Back Exam Back exam: Present: normal inspection - Neurological Exam Neurological exam: Present: alert, oriented X3, normal gait - Psychiatric Psychiatric exam: Present: normal affect, normal mood - Skin Skin exam: Present: warm, dry, intact, normal color. Absent: rash ED Course Vital Signs 10/22/17 10/23/17 10/23/17 17:01 00:49 01:03 Temperature 98.1 F 98.2 F Pulse Rate 88 67 Respiratory 16 14 14 Rate Blood Pressure 118/86 Blood Pressure 126/89 [Left] O2 Sat by Pulse 97 96 Oximetry ED Medical Decision Making - Lab Data Result diagrams: 10/22/17 17:54 10/22/17 17:54 Lab Results 10/22/17 10/22/17 10/22/17 Range/Units 17:54 17:54 19:20 WBC 3.9 L (4.5-11.0) K/mm3 RBC 4.84 (3.65-5.03) M/mm3 Hgb 13.9 (11.8-15.2) gm/dl Hct 42.3 (35.5-45.6) % MCV 87 (84-94) fl MCH 29 (28-32) pg MCHC 33 (32-34) % RDW 15.0 (13.2-15.2) % Plt Count 257 (140-440) K/mm3 Lymph % (Auto) 39.6 H (13.4-35.0) % [place] % (Auto) 10.8 H (0.0-7.3) % Eos % (Auto) 1.1 (0.0-4.3) % Baso % (Auto) 1.4 (0.0-1.8) % Lymph # 1.5 (1.2-5.4) K/mm3 [place] # 0.4 (0.0-0.8) K/mm3 Eos # 0.0 (0.0-0.4) K/mm3 Baso # 0.0 (0.0-0.1) K/mm3 Seg Neutrophils % 47.1 (40.0-70.0) % Seg Neutrophils # 1.9 (1.8-7.7) K/mm3 Sodium 140 (137-145) mmol/L Potassium 4.1 (3.6-5.0) mmol/L Chloride 100.8 (98-107) mmol/L Carbon Dioxide 27 (22-30) mmol/L Anion Gap 16 mmol/L BUN 18 (9-20) mg/dL Creatinine 1.3 (0.8-1.5) mg/dL Estimated GFR > 60 ml/min BUN/Creatinine Ratio 14 % Glucose 107 H (75-100) mg/dL Calcium 9.4 (8.4-10.2) mg/dL Troponin T < 0.010 < 0.010 (0.00-0.029) ng/mL 10/22/17 Range/Units 23:38 WBC (4.5-11.0) K/mm3 RBC (3.65-5.03) M/mm3 Hgb (11.8-15.2) gm/dl Hct (35.5-45.6) % MCV (84-94) fl MCH (28-32) pg MCHC (32-34) % RDW (13.2-15.2) % Plt Count (140-440) K/mm3 Lymph % (Auto) (13.4-35.0) % [place] % (Auto) (0.0-7.3) % Eos % (Auto) (0.0-4.3) % Baso % (Auto) (0.0-1.8) % Lymph # (1.2-5.4) K/mm3 [place] # (0.0-0.8) K/mm3 Eos # (0.0-0.4) K/mm3 Baso # (0.0-0.1) K/mm3 Seg Neutrophils % (40.0-70.0) % Seg Neutrophils # (1.8-7.7) K/mm3 Sodium (137-145) mmol/L Potassium (3.6-5.0) mmol/L Chloride (98-107) mmol/L Carbon Dioxide (22-30) mmol/L Anion Gap mmol/L BUN (9-20) mg/dL Creatinine (0.8-1.5) mg/dL Estimated GFR ml/min BUN/Creatinine Ratio % Glucose (75-100) mg/dL Calcium (8.4-10.2) mg/dL Troponin T < 0.010 (0.00-0.029) ng/mL - EKG Data 171: 10/22 HR 73, sinus, normal axis, intervals wnl, no ST changes concerning for acute ischemia, unchanged from previous 04/2017 0121: 6 HR 58, sinus, normal axis, intervals wnl, no ST changes concerning for acute ischemia - Radiology Data Radiology results: report reviewed - Medical Decision Making Mr Turner is a 52 year-old man with hx of HTN who presents from home with chest pain. onset of left sided chest pain while at work. hx sounds consistent with MSK pain. Exam with reproducible left chest wall pain, anterior left rib 5. No bruising, no swelling, no rash. No crepitus. Suspect this is msk pain vs acs vs PNA vs PTX vs PE. Much less likely PE based on symptoms and more likely diagnosis. ASA for chest pain. CXR clear. EKG non-ischemic with NSR x 2. Trop negative x 2. Given toradol IM with significant improvement in pain. Had long talk with patient and his regarding symptoms and possible etiologies of his chest pain. Explained that this is low risk chest pain, HEART score 2, low likelihood of PE. Given care instructions and strict return precautions. Since he has one kidney, will not place him on NSAID, will give hydrocodone for 2 days to decrease splinting and therefore decrease chance of PNA. Safe for dc to home with pcp follow-up next week. Explained that his feet tingling is difficult to pin down, no symptoms recently. perhaps it is his shoes. Bilateral in his feet is non-concerning for CVA. Encouraged him to stay well hydrated based on his symptoms of orthostasis yesterday. No symptoms today. Critical care attestation.: If time is entered above; I have spent that time in minutes in the direct care of this critically ill patient, excluding procedure time. ED Disposition Clinical Impression: Chest wall pain Disposition: DC-01 TO HOME OR SELFCARE Is pt being admited?: No Condition: Stable Instructions: Chest Pain (ED) Referrals: PRIMARY CARE, [Primary Care Provider] - 3-5 Days
[2017-10-23 02:20] VITALS: BP 120/88
== END 2017-10-23 02:20 | disposition home or self-care (01) ==
LOC: ED 16:45
DX: R07.89 Other chest pain (principal); I10 Essential (primary) hypertension; M19.90 Unspecified osteoarthritis, unspecified site; Z88.8 Allergy status to other drugs, medicaments and biological substances
CPT/HCPCS: 36415; 71045; 80048; 84484; 85025; 93005; 93010; 96372; 99284

== ENCOUNTER 2018-07-09 06:58 | Emergency (ER) | payer OTHER ==
[2018-07-09 07:09] VITALS: BP 174/119
--- NOTE | 2018-07-09 07:54 | XRay Report ---
LEFT HAND, 2 views: History: Hand pain. The bony architecture is intact. Bony alignment is normal. No evidence for fracture or suspicious bony lesion. There are mild osteoarthritic changes at the second metacarpophalangeal joint. A small erosion with an overhanging edge is identified at the base of the proximal phalanx of the fifth digit. This could represent gout. The soft tissues are unremarkable. IMPRESSION: No acute process. Mild degenerative changes as described. Very small bony erosion at the base of the fifth digit of uncertain significance. Gout could be considered.
[2018-07-09] MEDS ORDERED: IBUPROFEN PO ONE (08:07)
--- NOTE | 2018-07-09 08:08 | Emergency Department Report ---
ED Upper Extremity Inj HPI - General Chief Complaint: Extremity Injury, Upper Stated Complaint: HAND PAIN Time Seen by Provider: 07/09/18 07:55 Source: patient Mode of arrival: Ambulatory Limitations: No Limitations - History of Present Illness Initial Comments: This is a 53-year-old male nontoxic, well nourished in appearance, no acute signs of distress presents to the ED with c/o of left hand pain. Patient stated that he hit it. Patient denies any other trauma. Patient denies any numbness, tingling, fever, chills, nausea, vomiting, chest pain, shortness of breath, headache, stiff neck. Patient denies any joint swelling or joint redness. Patient denies decreased range of motion. Patient denies significant past medical history. MD Complaint: Injury to:: left, hand -: days(s) Other Extremity Injury: Hand: Left Other Injuries: none Severity scale (0 -10): 8 Improves With: none Worsens With: none Context: direct blow Associated Symptoms: denies other symptoms. denies: weakness, numbness, neck pain, suspects foreign body, nausea/vomiting, heard/felt popping sensat - Related Data Previous Rx's Medication Instructions Recorded Last Taken Type Ibuprofen [Motrin 800 MG tab] 800 mg PO Q8HR PRN #20 tablet 03/31/16 Unknown Rx Acetaminophen/Codeine [Tylenol #3] 1 tab PO Q4HR PRN #20 tablet 06/01/16 Unknown Rx Furosemide [Lasix TAB] 20 mg PO QDAY #7 tablet 06/01/16 Unknown Rx Ciprofloxacin [Ciprofloxacin ORAL 500 mg PO BID #24 ml 08/02/16 Unknown Rx LIQ] metroNIDAZOLE [Flagyl] 500 mg PO Q12HR #24 tab 08/02/16 Unknown Rx traMADol [Ultram 50 MG tab] 50 mg PO Q6H #8 tablet 10/02/16 Unknown Rx Ibuprofen [Motrin] 800 mg PO Q8HR PRN #25 tablet 11/08/16 Unknown Rx cephALEXin [Keflex] 500 mg PO Q12HR #14 cap 11/08/16 Unknown Rx Ibuprofen [Motrin 600 MG tab] 600 mg PO Q8H PRN #20 tablet 11/12/16 Unknown Rx predniSONE [Deltasone] 20 mg PO BID #10 tab 11/12/16 Unknown Rx HYDROcodone/APAP 5-325 [[place] 1 each PO Q6HR PRN #14 tablet 03/12/17 Unknown Rx 5/325] Ondansetron [Zofran Odt] 4 mg PO Q8HR PRN #20 tab.rapdis 03/12/17 Unknown Rx Acetaminophen [Acetaminophen TAB] 500 mg PO Q6HR PRN #30 tablet 03/26/17 Unknown Rx traMADol [Ultram 50 MG tab] 50 mg PO Q6HR PRN #12 tablet 03/26/17 Unknown Rx Doxycycline Hyclate [Doxycycline 100 mg PO Q12HR #20 tab 03/29/17 Unknown Rx Hyclate TAB] Ibuprofen [Motrin] 800 mg PO Q8HR PRN #15 tablet 03/29/17 Unknown Rx Sulfamethoxazole/Trimethoprim 1 each PO BID #20 tablet 03/29/17 Unknown Rx [Bactrim DS TAB] Famotidine [Pepcid] 20 mg PO BID #30 tablet 05/17/17 Unknown Rx HYDROcodone/APAP 5-325 [[place] 1 - 2 each PO Q6HR PRN #14 tablet 05/17/17 Unknown Rx 5/325] Promethazine [Phenergan TAB] 25 mg PO Q6HR PRN #20 tab 05/17/17 Unknown Rx Promethazine [Phenergan] 25 mg ND Q6HR PRN #5 supp.rect 05/17/17 Unknown Rx HYDROcodone/ACETAMINOPHEN 1 each PO Q6H PRN 2 Days #8 tablet 10/23/17 Unknown Rx [Hydrocodon-Acetaminophen 5-325] Acetaminophen/Codeine [Tylenol 1 tab PO Q6H PRN #14 tab 03/12/18 Unknown Rx /Codeine # 3 tab] Lisinopril [Zestril TAB] 10 mg PO QDAY #40 tablet 03/12/18 Unknown Rx Acetaminophen/Codeine [Tylenol 1 tab PO Q6H PRN #12 tab 07/09/18 Unknown Rx /Codeine # 3 tab] Ibuprofen [Motrin] 600 mg PO Q8H PRN #20 tablet 07/09/18 Unknown Rx Allergies Allergy/AdvReac Type Severity Reaction Status Date / Time docusate Allergy Vomiting Verified 03/12/18 14:09 docusate sodium [From Colace] Allergy Vomiting Verified 03/12/18 14:09 mag citrate Allergy Nausea Uncoded 11/14/18 14:09 ED Review of Systems ROS: Stated complaint: HAND PAIN Other details as noted in HPI Constitutional: denies: chills, fever Eyes: denies: eye pain, eye discharge, vision change ENT: denies: ear pain, throat pain Respiratory: denies: cough, shortness of breath, wheezing Cardiovascular: denies: chest pain, palpitations Endocrine: no symptoms reported Gastrointestinal: denies: abdominal pain, nausea, diarrhea Genitourinary: denies: urgency, dysuria Musculoskeletal: denies: back pain, joint swelling, arthralgia Skin: denies: rash, lesions Neurological: denies: headache, weakness, paresthesias Psychiatric: denies: anxiety, depression Hematological/Lymphatic: denies: easy bleeding, easy bruising ED Past Medical Hx - Past Medical History Hx Hypertension: Yes Hx Arthritis: Yes Additional medical history: diverticulitis,. only right kidney. gout - Surgical History Past Surgical History?: Yes Additional Surgical History: colostomy 10/24/12, reversal of colostomy 2013, left kidney removed 1971, left knee surgery 2013. abd surgery x 2,. HERNIA - Social History Smoking Status: Never Smoker Substance Use Type: Alcohol - Medications Home Medications: Home Medications Medication Instructions Recorded Confirmed Last Taken Type Ibuprofen [Motrin 800 MG tab] 800 mg PO Q8HR PRN #20 tablet 03/31/16 Unknown Rx Acetaminophen/Codeine [Tylenol #3] 1 tab PO Q4HR PRN #20 tablet 06/01/16 Unknown Rx Furosemide [Lasix TAB] 20 mg PO QDAY #7 tablet 06/01/16 Unknown Rx Ciprofloxacin [Ciprofloxacin ORAL 500 mg PO BID #24 ml 08/02/16 Unknown Rx LIQ] metroNIDAZOLE [Flagyl] 500 mg PO Q12HR #24 tab 08/02/16 Unknown Rx traMADol [Ultram 50 MG tab] 50 mg PO Q6H #8 tablet 10/02/16 Unknown Rx Ibuprofen [Motrin] 800 mg PO Q8HR PRN #25 tablet 11/08/16 Unknown Rx cephALEXin [Keflex] 500 mg PO Q12HR #14 cap 11/08/16 Unknown Rx Ibuprofen [Motrin 600 MG tab] 600 mg PO Q8H PRN #20 tablet 11/12/16 Unknown Rx predniSONE [Deltasone] 20 mg PO BID #10 tab 11/12/16 Unknown Rx HYDROcodone/APAP 5-325 [[place] 1 each PO Q6HR PRN #14 tablet 03/12/17 Unknown Rx 5/325] Ondansetron [Zofran Odt] 4 mg PO Q8HR PRN #20 tab.rapdis 03/12/17 Unknown Rx Acetaminophen [Acetaminophen TAB] 500 mg PO Q6HR PRN #30 tablet 03/26/17 Unknown Rx traMADol [Ultram 50 MG tab] 50 mg PO Q6HR PRN #12 tablet 03/26/17 Unknown Rx Doxycycline Hyclate [Doxycycline 100 mg PO Q12HR #20 tab 03/29/17 Unknown Rx Hyclate TAB] Ibuprofen [Motrin] 800 mg PO Q8HR PRN #15 tablet 03/29/17 Unknown Rx Sulfamethoxazole/Trimethoprim 1 each PO BID #20 tablet 03/29/17 Unknown Rx [Bactrim DS TAB] Famotidine [Pepcid] 20 mg PO BID #30 tablet 05/17/17 Unknown Rx HYDROcodone/APAP 5-325 [[place] 1 - 2 each PO Q6HR PRN #14 tablet 05/17/17 Unknown Rx 5/325] Promethazine [Phenergan TAB] 25 mg PO Q6HR PRN #20 tab 05/17/17 Unknown Rx Promethazine [Phenergan] 25 mg ND Q6HR PRN #5 supp.rect 05/17/17 Unknown Rx HYDROcodone/ACETAMINOPHEN 1 each PO Q6H PRN 2 Days #8 tablet 10/23/17 Unknown Rx [Hydrocodon-Acetaminophen 5-325] Acetaminophen/Codeine [Tylenol 1 tab PO Q6H PRN #14 tab 03/12/18 Unknown Rx /Codeine # 3 tab] Lisinopril [Zestril TAB] 10 mg PO QDAY #40 tablet 03/12/18 Unknown Rx Acetaminophen/Codeine [Tylenol 1 tab PO Q6H PRN #12 tab 07/09/18 Unknown Rx /Codeine # 3 tab] Ibuprofen [Motrin] 600 mg PO Q8H PRN #20 tablet 07/09/18 Unknown Rx ED Physical Exam - General Limitations: No Limitations General appearance: alert, in no apparent distress - Head Head exam: Present: atraumatic, normocephalic - Extremities Exam Extremities exam: Present: normal inspection, full ROM, tenderness, normal capillary refill. Absent: joint swelling - Expanded Upper Extremity Exam Left General: Present: normal inspection Shoulder Exam: Present: normal inspection, full ROM. Absent: tenderness Upper Arm exam: Present: normal inspection, full ROM. Absent: tenderness Elbow exam: Present: normal inspection, full ROM. Absent: tenderness Forearm Wrist exam: Present: normal inspection, full ROM. Absent: tenderness, swelling, abrasion, laceration, ecchymosis, deformity, crepidus, dislocation, erythema, tenderness over anatomical snuff box, pain with axial thumb loading Hand Wrist exam: Present: normal inspection, full ROM, tenderness. Absent: swelling, abrasion, laceration, ecchymosis, deformity, crepidus, dislocation, erythema, amputation, nail avulsion, subungual hematoma Vascular: Present: vascular compromise, normal capillary refill - Back Exam Back exam: Present: normal inspection, full ROM - Neurological Exam Neurological exam: Present: alert, oriented X3 - Psychiatric Psychiatric exam: Present: normal affect, normal mood - Skin Skin exam: Present: warm, dry, intact, normal color. Absent: rash ED Course Vital Signs 07/09/18 07:06 Temperature 97.9 F Pulse Rate 56 L Respiratory 16 Rate Blood Pressure 174/119 O2 Sat by Pulse 99 Oximetry - Reevaluation(s) Reevaluation #1: 07/09/18 08:09 Patient is speaking in full sentences with no signs of distress noted. ED Medical Decision Making - Medical Decision Making This is a 53-year-old male that presents with left hand strain. Patient is stable and was examined by me. I referred patient to an orthopedic doctor for further evaluation for possible MRI. X-ray has been obtained and dictated by the radiologist. Patient is notified of the x-ray report with noted by the patient. Patient does have normal gait with no tenderness and no joint swelling. No ecchymosis. no joint redness or swelling. Not warm to touch. No signs of cellulites present. Patient received jojo wrap. Patient was instructed to RICE therapy. Patient received Motrin for pain. Patient is discharged with Motrin and Tylenol #3. At time of discharge, the patient does not seem toxic or ill in appearance. No acute signs of distress noted. Patient agrees to discharge treatment plan of care. No further questions noted by the patient. Critical care attestation.: If time is entered above; I have spent that time in minutes in the direct care of this critically ill patient, excluding procedure time. ED Disposition Clinical Impression: Strain of left hand Disposition: DC-01 TO HOME OR SELFCARE Is pt being admited?: No Does the pt Need Aspirin: No Condition: Stable Instructions: RICE Therapy (ED), Acetaminophen/Codeine (By mouth) Additional Instructions: Follow-up with a orthopedic doctor in 3-5 days or if symptoms worsen and continue return to emergency room as soon as possible. Do not operate any machinery while taking Tylenol with codeine as this may cause drowsiness. Prescriptions: Ibuprofen [Motrin] 600 mg PO Q8H PRN #20 tablet PRN Reason: Pain Acetaminophen/Codeine [Tylenol /Codeine # 3 tab] 1 tab PO Q6H PRN #12 tab PRN Reason: Pain , Severe (7-10) Referrals: PRIMARY CARE, [Referring] - 3-5 Days RONNIE DURAN MD [Staff Physician] - 3-[address] [facility] [Outside] - 3-5 Days [facility] [Outside] - 3-5 Days
== END 2018-07-09 08:16 | disposition home or self-care (01) ==
LOC: ED 06:58
DX: S66.912A Strain of unspecified muscle, fascia and tendon at wrist and hand level, left hand, initial encounter (principal); I10 Essential (primary) hypertension; M19.90 Unspecified osteoarthritis, unspecified site; Z79.899 Other long term (current) drug therapy; Z88.8 Allergy status to other drugs, medicaments and biological substances; W22.8XXA Striking against or struck by other objects, initial encounter; Y93.89 Activity, other specified; Y92.89 Other specified places as the place of occurrence of the external cause; Y99.8 Other external cause status
CPT/HCPCS: 99283

== ENCOUNTER 2018-07-14 17:15 | Emergency (ER) | payer OTHER ==
--- NOTE | 2018-07-14 18:00 | Emergency Department Report ---
Blank Doc - Documentation Documentation: This is a 53-year-old male that presents with abdominal pain with n/v. This initial assessment/diagnostic orders/clinical plan/treatment(s) is/are subject to change based on patient's health status, clinical progression and re- assessment by fellow clinical providers in the ED. Further treatment and workup at subsequent clinical providers discretion. Patient/guardians urged not to elope from the ED as their condition may be serious if not clinically assessed and managed. Initial orders include: 1- Patient sent to [facility] for further evaluation and treatment 2- labs
[2018-07-14 18:01] VITALS: BP 136/95
[2018-07-14 18:26] LABS: Basophils # (Auto) 0.1 K/mm3 (0.0-0.1); Eosinophils % (Auto) 0.8 % (0.0-4.3); Hematocrit 42.3 % (35.5-45.6); Hemoglobin 13.9 gm/dl (11.8-15.2); Lymphocytes # (Auto) 1.8 K/mm3 (1.2-5.4); Lymphocytes % (Auto) 33.7 % (13.4-35.0); Mean Corpuscular HGB Conc 33 % (32-34); Mean Corpuscular Volume 87 fl (84-94); Monocytes # (Auto) 0.5 K/mm3 (0.0-0.8); Monocytes % (Auto) 9.6 % (0.0-7.3); Platelet Count 313 K/mm3 (140-440); Red Blood Count 4.85 M/mm3 (3.65-5.03); Red Cell Distribution Width 15.6 % (13.2-15.2)
[2018-07-14 19:04] LABS: Alanine Aminotransferase 19 units/L (7-56); BUN/Creatinine Ratio 17; Blood Urea Nitrogen 20 mg/dL (9-20); Calcium 8.8 mg/dL (8.4-10.2); Hemolysis Index 7
[2018-07-14] MEDS ORDERED: TORADOL IV ONE (23:35)
[2018-07-14] MEDS ORDERED: NACL 0.9% 1000 ML 1,000 ML IV ONE (23:35)
[2018-07-14] MEDS ORDERED: ZOFRAN IV ONE (23:35)
--- NOTE | 2018-07-15 00:12 | Emergency Department Report ---
ED Abdominal Pain HPI - General Chief Complaint: Abdominal Pain Stated Complaint: (L) SIDE PAIN/N/V/ ABD PAIN Time Seen by Provider: 07/14/18 18:00 Source: patient Mode of arrival: Ambulatory Limitations: No Limitations - History of Present Illness Initial Comments: This is a 53-year-old male that presents with abdominal pain with n/v. hx of diverticulitis pain is 7/10 Radiating to LLQ , wth RUQ tenderness last n/v 2 hrs ago last po just prior to n/v , no blood stools no hemoptysis no melena Complaint: abdominal pain Onset/Timin -: week(s) Radiation: LLQ Migration to: LLQ Severity: moderate Severity scale (0 -10): 8 Quality: aching Consistency: constant Improves With: nothing Worsens With: eating Associated Symptoms: nausea, vomiting, chills. denies: diarrhea, dysuria, melena - Related Data Previous Rx's Medication Instructions Recorded Last Taken Type Ibuprofen [Motrin 800 MG tab] 800 mg PO Q8HR PRN #20 tablet 03/31/16 Unknown Rx Acetaminophen/Codeine [Tylenol #3] 1 tab PO Q4HR PRN #20 tablet 06/01/16 Unknown Rx Furosemide [Lasix TAB] 20 mg PO QDAY #7 tablet 06/01/16 Unknown Rx Ciprofloxacin [Ciprofloxacin ORAL 500 mg PO BID #24 ml 08/02/16 Unknown Rx LIQ] metroNIDAZOLE [Flagyl] 500 mg PO Q12HR #24 tab 08/02/16 Unknown Rx traMADol [Ultram 50 MG tab] 50 mg PO Q6H #8 tablet 10/02/16 Unknown Rx Ibuprofen [Motrin] 800 mg PO Q8HR PRN #25 tablet 11/08/16 Unknown Rx cephALEXin [Keflex] 500 mg PO Q12HR #14 cap 11/08/16 Unknown Rx Ibuprofen [Motrin 600 MG tab] 600 mg PO Q8H PRN #20 tablet 11/12/16 Unknown Rx predniSONE [Deltasone] 20 mg PO BID #10 tab 11/12/16 Unknown Rx HYDROcodone/APAP 5-325 [[place] 1 each PO Q6HR PRN #14 tablet 03/12/17 Unknown Rx 5/325] Ondansetron [Zofran Odt] 4 mg PO Q8HR PRN #20 tab.rapdis 03/12/17 Unknown Rx Acetaminophen [Acetaminophen TAB] 500 mg PO Q6HR PRN #30 tablet 03/26/17 Unknown Rx traMADol [Ultram 50 MG tab] 50 mg PO Q6HR PRN #12 tablet 03/26/17 Unknown Rx Doxycycline Hyclate [Doxycycline 100 mg PO Q12HR #20 tab 03/29/17 Unknown Rx Hyclate TAB] Ibuprofen [Motrin] 800 mg PO Q8HR PRN #15 tablet 03/29/17 Unknown Rx Sulfamethoxazole/Trimethoprim 1 each PO BID #20 tablet 03/29/17 Unknown Rx [Bactrim DS TAB] Famotidine [Pepcid] 20 mg PO BID #30 tablet 05/17/17 Unknown Rx HYDROcodone/APAP 5-325 [[place] 1 - 2 each PO Q6HR PRN #14 tablet 05/17/17 Unknown Rx 5/325] Promethazine [Phenergan TAB] 25 mg PO Q6HR PRN #20 tab 05/17/17 Unknown Rx Promethazine [Phenergan] 25 mg ME Q6HR PRN #5 supp.rect 05/17/17 Unknown Rx HYDROcodone/ACETAMINOPHEN 1 each PO Q6H PRN 2 Days #8 tablet 10/23/17 Unknown Rx [Hydrocodon-Acetaminophen 5-325] Acetaminophen/Codeine [Tylenol 1 tab PO Q6H PRN #14 tab 03/12/18 Unknown Rx /Codeine # 3 tab] Lisinopril [Zestril TAB] 10 mg PO QDAY #40 tablet 03/12/18 Unknown Rx Acetaminophen/Codeine [Tylenol 1 tab PO Q6H PRN #12 tab 07/09/18 Unknown Rx /Codeine # 3 tab] Ibuprofen [Motrin] 600 mg PO Q8H PRN #20 tablet 07/09/18 Unknown Rx Famotidine [Pepcid] 20 mg PO BID #60 tablet 07/15/18 Unknown Rx Naproxen 500 mg PO BID PRN #30 tablet 07/15/18 Unknown Rx Allergies Allergy/AdvReac Type Severity Reaction Status Date / Time docusate Allergy Vomiting Verified 03/12/18 14:09 docusate sodium [From Colace] Allergy Vomiting Verified 03/12/18 14:09 mag citrate Allergy Nausea Uncoded 03/12/18 14:09 ED Review of Systems ROS: Stated complaint: (L) SIDE PAIN/N/V/ ABD PAIN Other details as noted in HPI Constitutional: denies: chills, fever Eyes: denies: eye pain, eye discharge, vision change ENT: denies: ear pain, throat pain Respiratory: denies: cough, shortness of breath, wheezing Cardiovascular: denies: chest pain, palpitations Endocrine: no symptoms reported Gastrointestinal: abdominal pain, nausea, vomiting. denies: diarrhea, constipation, hematemesis, melena, hematochezia Genitourinary: denies: urgency, dysuria Musculoskeletal: back pain. denies: joint swelling, arthralgia Skin: denies: rash, lesions Neurological: denies: headache, weakness, paresthesias Psychiatric: denies: anxiety, depression Hematological/Lymphatic: denies: easy bleeding, easy bruising ED Past Medical Hx - Past Medical History Previous Medical History?: Yes Hx Hypertension: Yes Hx Arthritis: Yes Additional medical history: diverticulitis,. only right kidney. gout - Surgical History Past Surgical History?: Yes Additional Surgical History: colostomy 10/24/12, reversal of colostomy 2013, left kidney removed 1971, left knee surgery 2013. abd surgery x 2,. HERNIA - Social History Smoking Status: Current Some Day Smoker Substance Use Type: Alcohol - Medications Home Medications: Home Medications Medication Instructions Recorded Confirmed Last Taken Type Ibuprofen [Motrin 800 MG tab] 800 mg PO Q8HR PRN #20 tablet 03/31/16 Unknown Rx Acetaminophen/Codeine [Tylenol #3] 1 tab PO Q4HR PRN #20 tablet 06/01/16 Unknown Rx Furosemide [Lasix TAB] 20 mg PO QDAY #7 tablet 06/01/16 Unknown Rx Ciprofloxacin [Ciprofloxacin ORAL 500 mg PO BID #24 ml 08/02/16 Unknown Rx LIQ] metroNIDAZOLE [Flagyl] 500 mg PO Q12HR #24 tab 08/02/16 Unknown Rx traMADol [Ultram 50 MG tab] 50 mg PO Q6H #8 tablet 10/02/16 Unknown Rx Ibuprofen [Motrin] 800 mg PO Q8HR PRN #25 tablet 11/08/16 Unknown Rx cephALEXin [Keflex] 500 mg PO Q12HR #14 cap 11/08/16 Unknown Rx Ibuprofen [Motrin 600 MG tab] 600 mg PO Q8H PRN #20 tablet 11/12/16 Unknown Rx predniSONE [Deltasone] 20 mg PO BID #10 tab 11/12/16 Unknown Rx HYDROcodone/APAP 5-325 [[place] 1 each PO Q6HR PRN #14 tablet 03/12/17 Unknown Rx 5/325] Ondansetron [Zofran Odt] 4 mg PO Q8HR PRN #20 tab.rapdis 03/12/17 Unknown Rx Acetaminophen [Acetaminophen TAB] 500 mg PO Q6HR PRN #30 tablet 03/26/17 Unknown Rx traMADol [Ultram 50 MG tab] 50 mg PO Q6HR PRN #12 tablet 03/26/17 Unknown Rx Doxycycline Hyclate [Doxycycline 100 mg PO Q12HR #20 tab 03/29/17 Unknown Rx Hyclate TAB] Ibuprofen [Motrin] 800 mg PO Q8HR PRN #15 tablet 03/29/17 Unknown Rx Sulfamethoxazole/Trimethoprim 1 each PO BID #20 tablet 03/29/17 Unknown Rx [Bactrim DS TAB] Famotidine [Pepcid] 20 mg PO BID #30 tablet 05/17/17 Unknown Rx HYDROcodone/APAP 5-325 [[place] 1 - 2 each PO Q6HR PRN #14 tablet 05/17/17 Unknown Rx 5/325] Promethazine [Phenergan TAB] 25 mg PO Q6HR PRN #20 tab 05/17/17 Unknown Rx Promethazine [Phenergan] 25 mg ME Q6HR PRN #5 supp.rect 05/17/17 Unknown Rx HYDROcodone/ACETAMINOPHEN 1 each PO Q6H PRN 2 Days #8 tablet 10/23/17 Unknown Rx [Hydrocodon-Acetaminophen 5-325] Acetaminophen/Codeine [Tylenol 1 tab PO Q6H PRN #14 tab 03/12/18 Unknown Rx /Codeine # 3 tab] Lisinopril [Zestril TAB] 10 mg PO QDAY #40 tablet 03/12/18 Unknown Rx Acetaminophen/Codeine [Tylenol 1 tab PO Q6H PRN #12 tab 07/09/18 Unknown Rx /Codeine # 3 tab] Ibuprofen [Motrin] 600 mg PO Q8H PRN #20 tablet 07/09/18 Unknown Rx Famotidine [Pepcid] 20 mg PO BID #60 tablet 07/15/18 Unknown Rx Naproxen 500 mg PO BID PRN #30 tablet 07/15/18 Unknown Rx ED Physical Exam - General Limitations: No Limitations General appearance: alert, in no apparent distress - Head Head exam: Present: atraumatic, normocephalic - Eye Eye exam: Present: normal appearance, PERRL, EOMI Pupils: Present: normal accommodation - ENT ENT exam: Present: mucous membranes moist - Neck Neck exam: Present: normal inspection, full ROM. Absent: tenderness, meningismus, lymphadenopathy, thyromegaly - Respiratory Respiratory exam: Present: normal lung sounds bilaterally. Absent: respiratory distress, wheezes, stridor, chest wall tenderness - Cardiovascular Cardiovascular Exam: Present: regular rate, normal rhythm, normal heart sounds. Absent: systolic murmur, diastolic murmur, rubs, gallop - GI/Abdominal GI/Abdominal exam: Present: soft, tenderness (RLQ , LLQ ), normal bowel sounds. Absent: guarding, rebound, rigid, bruit, hernia - Rectal Rectal exam: Present: deferred - Extremities Exam Extremities exam: Present: normal inspection - Back Exam Back exam: Present: normal inspection, full ROM. Absent: tenderness, CVA tenderness (R), CVA tenderness (L), muscle spasm, rash noted - Neurological Exam Neurological exam: Present: alert, oriented X3, CN II-XII intact, normal gait, reflexes normal - Psychiatric Psychiatric exam: Present: normal affect, normal mood - Skin Skin exam: Present: warm, dry, intact, normal color. Absent: rash ED Course Vital Signs 07/14/18 18:00 Temperature 98.0 F Pulse Rate 68 Respiratory 20 Rate Blood Pressure 136/95 O2 Sat by Pulse 100 Oximetry ED Medical Decision Making - Lab Data Result diagrams: 07/14/18 18:09 07/14/18 18:09 Labs 07/14/18 07/14/18 18:09 18:09 WBC 5.4 RBC 4.85 Hgb 13.9 Hct 42.3 MCV 87 MCH 29 MCHC 33 RDW 15.6 H Plt Count 313 Lymph % (Auto) 33.7 [place] % (Auto) 9.6 H Eos % (Auto) 0.8 Baso % (Auto) 1.0 Lymph # 1.8 [place] # 0.5 Eos # 0.0 Baso # 0.1 Seg Neutrophils % 54.9 Seg Neutrophils # 3.0 Sodium 138 Potassium 4.0 Chloride 101.3 Carbon Dioxide 22 Anion Gap 19 BUN 20 Creatinine 1.2 Estimated GFR > 60 BUN/Creatinine Ratio 17 Glucose 95 Calcium 8.8 Total Bilirubin < 0.20 AST 18 ALT 19 Alkaline Phosphatase 53 Total Protein 6.8 Albumin 4.0 Albumin/Globulin Ratio 1.4 Lipase 62 H - EKG Data EKG shows normal: sinus rhythm, axis, intervals, QRS complexes Rate: normal, tachycardia, bradycardia - Radiology Data Radiology results: report reviewed, image reviewed Ordering Physician: PUMA LEON NP Date of Service: 07/14/18 Procedure(s): CT abdomen pelvis w con Accession Number(s): [id number] cc: PUMA LEON NP PROCEDURE: CT ABDOMEN PELVIS W CON TECHNIQUE: Computerized axial tomography of the abdomen and pelvis was performed after the IV injection of iodinated nonionic contrast. CT DOSE LENGTH PRODUCT: mGycm HISTORY: abd COMPARISONS: 03/12/2018 . FINDINGS: Visualized lower thorax: No significant abnormality. Liver: Normal size and attenuation. Spleen: Normal size and attenuation. Gallbladder and biliary system: Normal. Pancreas: Normal. Adrenals: Normal. Kidneys: There has been a left nephrectomy.. GI tract: There is no bowel obstruction. There is no colitis or enteritis. There has been bowel surgery. There are distorted loops of small bowel without obstruction suggesting adhesions. The appendix is normal. . Lymph nodes and mesentery: There is no aortic aneurysm.. Vasculature: Normal.. Bladder: Normal. Reproductive organs: Normal. Peritoneum: There is no ascites or free air, abscess or adenopathy.. Musculoskeletal structures: No significant abnormality. Other: There is scarring in the anterior abdominal wall from prior surgery. IMPRESSION: There has been a left nephrectomy. There is no bowel obstruction. There is no colitis or enteritis. There has been bowel surgery. There are distorted loops of small bowel without obstruction suggesting adhesions. The appendix is normal. There is no ascites or free air, abscess or adenopathy. There is scarring in the anterior abdominal wall from prior surgery. This document is electronically signed by Liana Qiu MD., July 15 2018 01:14:43 AM ET Transcribed By: CO Dictated By: LIANA QIU MD Electronically Authenticated By: LIANA QIU MD Signed Date/Time: 07/15/18 0116 DD/ [id number] TD/TT: 07/15/18 0058 - Medical Decision Making CT scan is normal no structure no bleed no mass no abnormality labs are normal lipase is 62 plan Pepcid by mouth twice a day follow up with GI follow with PCP in 2-3 days return to emergency should symptoms worsen patient verbalized agreement and understanding with same patient is currently NO 3 tolerating by mouth intake without nausea vomiting patient DC'd home via POV and family member at bedside Critical care attestation.: If time is entered above; I have spent that time in minutes in the direct care of this critically ill patient, excluding procedure time. ED Disposition Clinical Impression: Abdominal pain Qualifiers: Abdominal location: generalized Qualified Code(s): R10.84 - Generalized abdominal pain Disposition: DC-01 TO HOME OR SELFCARE Is pt being admited?: No Does the pt Need Aspirin: No Condition: Stable Instructions: Abdominal Pain (ED) Prescriptions: Naproxen 500 mg PO BID PRN #30 tablet PRN Reason: pain Famotidine [Pepcid] 20 mg PO BID #60 tablet Referrals: KAMILAH SHEPHERD MD [Staff Physician] - 3-5 Days Forms: Work/School Release Form(ED) Time of Disposition: 01:35
--- NOTE | 2018-07-15 01:16 | Cat Scan Report ---
PROCEDURE: CT ABDOMEN PELVIS W CON TECHNIQUE: Computerized axial tomography of the abdomen and pelvis was performed after the IV inject ion of iodinated nonionic contrast. CT DOSE LENGTH PRODUCT: mGycm HISTORY: abd COMPARISONS: 03/12/2018 . FINDINGS: Visualized lower thorax: No significant abnormality. Liver: Normal size and attenuation. Spleen: Normal size and attenuation. Gallbladder and biliary system: Normal. Pancreas: Normal. Adrenals: Normal. Kidneys: There has been a left nephrectomy.. GI tract: There is no bowel obstruction. There is no colitis or enteritis. There has been bowel surg genny. There are distorted loops of small bowel without obstruction suggesting adhesions. The appendix is normal. . Lymph nodes and mesentery: There is no aortic aneurysm.. Vasculature: Normal.. Bladder: Normal. Reproductive organs: Normal. Peritoneum: There is no ascites or free air, abscess or adenopathy.. Musculoskeletal structures: No significant abnormality. Other: There is scarring in the anterior abdominal wall from prior surgery. IMPRESSION: There has been a left nephrectomy. There is no bowel obstruction. There is no colitis or enteritis. There has been bowel surgery. There are distorted loops of small bowel without obstruction suggesting adhesions. The appendix is normal. There is no ascites or free air, abscess or adenopathy. There is scarring in the anterior abdominal wall from prior surgery. This document is electronically signed by Drew Whiteside MD., July 15 2018 01:14:43 AM ET
[2018-07-15] MEDS ORDERED: ZOFRAN IV ONE (01:58)
[2018-07-15] MEDS ORDERED: MORPHINE IV ONE (01:58)
== END 2018-07-15 02:29 | disposition home or self-care (01) ==
LOC: ED 17:15
DX: R10.11 Right upper quadrant pain (principal); R11.2 Nausea with vomiting, unspecified; I10 Essential (primary) hypertension; M10.9 Gout, unspecified; F17.200 Nicotine dependence, unspecified, uncomplicated; Z09 Encounter for follow-up examination after completed treatment for conditions other than malignant neoplasm; Z93.3 Colostomy status; Z88.8 Allergy status to other drugs, medicaments and biological substances
CPT/HCPCS: 36415; 74177; 80053; 83690; 85025; 96361; 96374; 96375; 96376; 99284; J1885; J2270; J2405; J7030; Q9967

== ENCOUNTER 2018-08-27 09:19 | Emergency (ER) | payer OTHER ==
[2018-08-27 09:26] VITALS: BP 137/94
--- NOTE | 2018-08-27 10:26 | Emergency Department Report ---
ED Extremity Problem HPI - General Chief complaint: Extremity Problem,Nontraumatic Stated complaint: R ARM SWOLLEN/PAIN Time Seen by Provider: 08/27/18 09:59 Source: patient Mode of arrival: Ambulatory Limitations: No Limitations - History of Present Illness Initial comments: 61-year-old male with redness, pain, swelling to right forearm, elbow, up to mid upper arm x 3 days. Patient was associated itching, however, does not know if he was bitten by an insect. Patient denies fever. Reports history of gout. MD Complaint: extremity pain, extremity swelling -: days(s) (3) Location: right, lower extremity History of Same: No Quality: aching Consistency: constant Improves with: immobilization Worsens with: palpation Associated Symptoms: denies: fever - Related Data Previous Rx's Medication Instructions Recorded Last Taken Type Ibuprofen [Motrin 800 MG tab] 800 mg PO Q8HR PRN #20 tablet 03/31/16 Unknown Rx Acetaminophen/Codeine [Tylenol #3] 1 tab PO Q4HR PRN #20 tablet 06/01/16 Unknown Rx Furosemide [Lasix TAB] 20 mg PO QDAY #7 tablet 06/01/16 Unknown Rx Ciprofloxacin [Ciprofloxacin ORAL 500 mg PO BID #24 ml 08/02/16 Unknown Rx LIQ] metroNIDAZOLE [Flagyl] 500 mg PO Q12HR #24 tab 08/02/16 Unknown Rx traMADol [Ultram 50 MG tab] 50 mg PO Q6H #8 tablet 10/02/16 Unknown Rx Ibuprofen [Motrin] 800 mg PO Q8HR PRN #25 tablet 11/08/16 Unknown Rx cephALEXin [Keflex] 500 mg PO Q12HR #14 cap 11/08/16 Unknown Rx Ibuprofen [Motrin 600 MG tab] 600 mg PO Q8H PRN #20 tablet 11/12/16 Unknown Rx predniSONE [Deltasone] 20 mg PO BID #10 tab 11/12/16 Unknown Rx HYDROcodone/APAP 5-325 [Industry 1 each PO Q6HR PRN #14 tablet 03/12/17 Unknown Rx 5/325] Ondansetron [Zofran Odt] 4 mg PO Q8HR PRN #20 tab.rapdis 03/12/17 Unknown Rx Acetaminophen [Acetaminophen TAB] 500 mg PO Q6HR PRN #30 tablet 03/26/17 Unknown Rx traMADol [Ultram 50 MG tab] 50 mg PO Q6HR PRN #12 tablet 03/26/17 Unknown Rx Doxycycline Hyclate [Doxycycline 100 mg PO Q12HR #20 tab 03/29/17 Unknown Rx Hyclate TAB] Ibuprofen [Motrin] 800 mg PO Q8HR PRN #15 tablet 03/29/17 Unknown Rx Sulfamethoxazole/Trimethoprim 1 each PO BID #20 tablet 03/29/17 Unknown Rx [Bactrim DS TAB] Famotidine [Pepcid] 20 mg PO BID #30 tablet 05/17/17 Unknown Rx HYDROcodone/APAP 5-325 [Industry 1 - 2 each PO Q6HR PRN #14 tablet 05/17/17 Unknown Rx 5/325] Promethazine [Phenergan TAB] 25 mg PO Q6HR PRN #20 tab 05/17/17 Unknown Rx Promethazine [Phenergan] 25 mg IA Q6HR PRN #5 supp.rect 05/17/17 Unknown Rx HYDROcodone/ACETAMINOPHEN 1 each PO Q6H PRN 2 Days #8 tablet 10/23/17 Unknown Rx [Hydrocodon-Acetaminophen 5-325] Acetaminophen/Codeine [Tylenol 1 tab PO Q6H PRN #14 tab 03/12/18 Unknown Rx /Codeine # 3 tab] Lisinopril [Zestril TAB] 10 mg PO QDAY #40 tablet 03/12/18 Unknown Rx Acetaminophen/Codeine [Tylenol 1 tab PO Q6H PRN #12 tab 07/09/18 Unknown Rx /Codeine # 3 tab] Ibuprofen [Motrin] 600 mg PO Q8H PRN #20 tablet 07/09/18 Unknown Rx Famotidine [Pepcid] 20 mg PO BID #60 tablet 07/15/18 Unknown Rx Naproxen 500 mg PO BID PRN #30 tablet 07/15/18 Unknown Rx Dicyclomine [Bentyl] 20 mg PO QID #10 tablet 08/15/18 Unknown Rx Ibuprofen [Ibu] 800 mg PO Q8H PRN #20 tablet 08/15/18 Unknown Rx Ondansetron [Zofran Odt] 4 mg PO Q8HR #10 tab.rapdis 08/15/18 Unknown Rx Naproxen [Naprosyn] 500 mg PO BID #20 tablet 08/27/18 Unknown Rx Sulfamethoxazole/Trimethoprim 1 each PO BID 7 Days #14 tablet 08/27/18 Unknown Rx [Bactrim DS TAB] cephALEXin [Keflex] 500 mg PO Q12HR 7 Days #14 cap 08/27/18 Unknown Rx Allergies Allergy/AdvReac Type Severity Reaction Status Date / Time docusate Allergy Vomiting Verified 03/12/18 14:09 docusate sodium [From Colace] Allergy Vomiting Verified 03/12/18 14:09 mag citrate Allergy Nausea Uncoded 03/12/18 14:09 ED Review of Systems ROS: Stated complaint: R ARM SWOLLEN/PAIN Other details as noted in HPI Comment: All other systems reviewed and negative Constitutional: denies: chills, fever Musculoskeletal: as per HPI ED Past Medical Hx - Past Medical History Previous Medical History?: Yes Hx Hypertension: Yes Hx Arthritis: Yes Additional medical history: diverticulitis,. only right kidney. gout - Surgical History Past Surgical History?: Yes Additional Surgical History: colostomy 10/24/12, reversal of colostomy 2013, left kidney removed 1971, left knee surgery 2013. abd surgery x 2,. HERNIA - Social History Smoking Status: Current Some Day Smoker Substance Use Type: Alcohol - Medications Home Medications: Home Medications Medication Instructions Recorded Confirmed Last Taken Type Ibuprofen [Motrin 800 MG tab] 800 mg PO Q8HR PRN #20 tablet 03/31/16 Unknown Rx Acetaminophen/Codeine [Tylenol #3] 1 tab PO Q4HR PRN #20 tablet 06/01/16 Unknown Rx Furosemide [Lasix TAB] 20 mg PO QDAY #7 tablet 06/01/16 Unknown Rx Ciprofloxacin [Ciprofloxacin ORAL 500 mg PO BID #24 ml 08/02/16 Unknown Rx LIQ] metroNIDAZOLE [Flagyl] 500 mg PO Q12HR #24 tab 08/02/16 Unknown Rx traMADol [Ultram 50 MG tab] 50 mg PO Q6H #8 tablet 10/02/16 Unknown Rx Ibuprofen [Motrin] 800 mg PO Q8HR PRN #25 tablet 11/08/16 Unknown Rx cephALEXin [Keflex] 500 mg PO Q12HR #14 cap 11/08/16 Unknown Rx Ibuprofen [Motrin 600 MG tab] 600 mg PO Q8H PRN #20 tablet 11/12/16 Unknown Rx predniSONE [Deltasone] 20 mg PO BID #10 tab 11/12/16 Unknown Rx HYDROcodone/APAP 5-325 [Industry 1 each PO Q6HR PRN #14 tablet 03/12/17 Unknown Rx 5/325] Ondansetron [Zofran Odt] 4 mg PO Q8HR PRN #20 tab.rapdis 03/12/17 Unknown Rx Acetaminophen [Acetaminophen TAB] 500 mg PO Q6HR PRN #30 tablet 03/26/17 Unknown Rx traMADol [Ultram 50 MG tab] 50 mg PO Q6HR PRN #12 tablet 03/26/17 Unknown Rx Doxycycline Hyclate [Doxycycline 100 mg PO Q12HR #20 tab 03/29/17 Unknown Rx Hyclate TAB] Ibuprofen [Motrin] 800 mg PO Q8HR PRN #15 tablet 03/29/17 Unknown Rx Sulfamethoxazole/Trimethoprim 1 each PO BID #20 tablet 03/29/17 Unknown Rx [Bactrim DS TAB] Famotidine [Pepcid] 20 mg PO BID #30 tablet 05/17/17 Unknown Rx HYDROcodone/APAP 5-325 [Industry 1 - 2 each PO Q6HR PRN #14 tablet 05/17/17 Unknown Rx 5/325] Promethazine [Phenergan TAB] 25 mg PO Q6HR PRN #20 tab 05/17/17 Unknown Rx Promethazine [Phenergan] 25 mg IA Q6HR PRN #5 supp.rect 05/17/17 Unknown Rx HYDROcodone/ACETAMINOPHEN 1 each PO Q6H PRN 2 Days #8 tablet 10/23/17 Unknown Rx [Hydrocodon-Acetaminophen 5-325] Acetaminophen/Codeine [Tylenol 1 tab PO Q6H PRN #14 tab 03/12/18 Unknown Rx /Codeine # 3 tab] Lisinopril [Zestril TAB] 10 mg PO QDAY #40 tablet 03/12/18 Unknown Rx Acetaminophen/Codeine [Tylenol 1 tab PO Q6H PRN #12 tab 07/09/18 Unknown Rx /Codeine # 3 tab] Ibuprofen [Motrin] 600 mg PO Q8H PRN #20 tablet 07/09/18 Unknown Rx Famotidine [Pepcid] 20 mg PO BID #60 tablet 07/15/18 Unknown Rx Naproxen 500 mg PO BID PRN #30 tablet 07/15/18 Unknown Rx Dicyclomine [Bentyl] 20 mg PO QID #10 tablet 08/15/18 Unknown Rx Ibuprofen [Ibu] 800 mg PO Q8H PRN #20 tablet 08/15/18 Unknown Rx Ondansetron [Zofran Odt] 4 mg PO Q8HR #10 tab.rapdis 08/15/18 Unknown Rx Naproxen [Naprosyn] 500 mg PO BID #20 tablet 08/27/18 Unknown Rx Sulfamethoxazole/Trimethoprim 1 each PO BID 7 Days #14 tablet 08/27/18 Unknown Rx [Bactrim DS TAB] cephALEXin [Keflex] 500 mg PO Q12HR 7 Days #14 cap 08/27/18 Unknown Rx ED Physical Exam - General Limitations: No Limitations General appearance: alert, in no apparent distress - Head Head exam: Present: atraumatic, normocephalic - Eye Eye exam: Present: normal appearance - ENT ENT exam: Present: mucous membranes moist - Neck Neck exam: Present: normal inspection - Respiratory Respiratory exam: Present: normal lung sounds bilaterally. Absent: respiratory distress - Cardiovascular Cardiovascular Exam: Present: regular rate, normal rhythm - GI/Abdominal GI/Abdominal exam: Absent: distended - Extremities Exam Extremities exam: Present: other (erythema, moderate swelling to right medial and dorsal surface of forearm and medial and posterior elbow; able to flex and extend at the elbow without significan pain; no crepitus palpated) - Neurological Exam Neurological exam: Present: alert, oriented X3. Absent: motor sensory deficit - Psychiatric Psychiatric exam: Present: normal affect, normal mood - Skin Skin exam: Present: warm, dry, erythema ED Course Vital Signs 08/27/18 08/27/18 09:24 10:11 Temperature 98.7 F Pulse Rate 91 H Respiratory 18 17 Rate Blood Pressure 137/94 O2 Sat by Pulse 97 Oximetry ED Medical Decision Making - Medical Decision Making - right upper extremity cellulitis - vitals normal - ? insect bite - no crepitus on exam - pt is not diabetic - rx given for naprosyn, bactrim and keflex - strict return precautions given - Differential Diagnosis cellulitis Critical care attestation.: If time is entered above; I have spent that time in minutes in the direct care of this critically ill patient, excluding procedure time. ED Disposition Clinical Impression: Cellulitis of right upper extremity Disposition: TO HOME OR SELFCARE Is pt being admited?: No Condition: Stable Instructions: Cellulitis (ED) Prescriptions: Sulfamethoxazole/Trimethoprim [Bactrim DS TAB] 1 each PO BID 7 Days #14 tablet cephALEXin [Keflex] 500 mg PO Q12HR 7 Days #14 cap Naproxen [Naprosyn] 500 mg PO BID #20 tablet Referrals: WILLIE WILSON MD [Primary Care Provider] - 3-5 Days Time of Disposition: 10:29
[2018-08-27] MEDS ORDERED: ULTRAM PO ONE (10:39)
== END 2018-08-27 12:07 | disposition home or self-care (01) ==
LOC: ED 09:19
DX: L03.113 Cellulitis of right upper limb (principal); I10 Essential (primary) hypertension; M19.90 Unspecified osteoarthritis, unspecified site
CPT/HCPCS: 99282

== ENCOUNTER 2018-09-07 21:18 | Emergency (ER) | payer OTHER ==
--- NOTE | 2018-09-07 22:58 | Emergency Department Report ---
Chief Complaint: Extremity Injury, Lower Stated Complaint: KNEE PAIN Time Seen by Provider: 09/07/18 22:56 - HPI History of Present Illness: pt presents with left knee pain that began 3-4 days ago pt states their is pain with ambulating states he has pain with bending no fall, injury, trauma states he had ligament repair 6 years ago in the same knee - Exam Vital Signs: Vital Signs 09/07/18 21:53 Temperature 98.3 F Pulse Rate 79 Respiratory 18 Rate Blood Pressure 149/112 O2 Sat by Pulse 99 Oximetry MSE screening note: Focused history and physical exam performed. Due to findings the following was ordered: XR left knee ED Disposition for MSE Condition: Stable
--- NOTE | 2018-09-08 01:48 | XRay Report ---
PROCEDURE: XR KNEE 3V LT TECHNIQUE: Left knee radiographs, AP, lateral, and oblique views. HISTORY: left knee pain, hx of ligament repair 6 yrs ago COMPARISONS: None FINDINGS: Fracture (s) and/or Dislocation(s): None Alignment: Normal Joint space(s): Normal Soft tissues: Normal Bone mineralization: Normal Foreign bodies: None IMPRESSION: Normal Examination This document is electronically signed by Regina Shepard DO., Sep 08 2018 01:46:18 AM ET
--- NOTE | 2018-09-08 02:04 | Emergency Department Report ---
ED Lower Extremity HPI - General Chief Complaint: Extremity Injury, Lower Stated Complaint: KNEE PAIN Time Seen by Provider: 09/07/18 22:56 Source: patient, family Mode of arrival: Ambulatory Limitations: No Limitations - History of Present Illness MD Complaint: knee injury -: Gradual, Sudden Injury: Knee: Left (left knee that is worse over the last 2 days) Type of Injury: unknown Place: home Severity: severe Severity scale (0 -10): 10 Improves With: rest Worsens With: weight bearing, movement, palpation Context: other (unknown) Associated Symptoms: ambulatory. denies: snap/pop sensation, swelling, numbness, tingling Treatments Prior to Arrival: other (none) - Related Data Previous Rx's Medication Instructions Recorded Last Taken Type Ibuprofen [Motrin 800 MG tab] 800 mg PO Q8HR PRN #20 tablet 03/31/16 Unknown Rx Acetaminophen/Codeine [Tylenol #3] 1 tab PO Q4HR PRN #20 tablet 06/01/16 Unknown Rx Furosemide [Lasix TAB] 20 mg PO QDAY #7 tablet 06/01/16 Unknown Rx Ciprofloxacin [Ciprofloxacin ORAL 500 mg PO BID #24 ml 08/02/16 Unknown Rx LIQ] metroNIDAZOLE [Flagyl] 500 mg PO Q12HR #24 tab 08/02/16 Unknown Rx traMADol [Ultram 50 MG tab] 50 mg PO Q6H #8 tablet 10/02/16 Unknown Rx Ibuprofen [Motrin] 800 mg PO Q8HR PRN #25 tablet 11/08/16 Unknown Rx cephALEXin [Keflex] 500 mg PO Q12HR #14 cap 11/08/16 Unknown Rx Ibuprofen [Motrin 600 MG tab] 600 mg PO Q8H PRN #20 tablet 11/12/16 Unknown Rx predniSONE [Deltasone] 20 mg PO BID #10 tab 11/12/16 Unknown Rx HYDROcodone/APAP 5-325 [[place] 1 each PO Q6HR PRN #14 tablet 03/12/17 Unknown Rx 5/325] Ondansetron [Zofran Odt] 4 mg PO Q8HR PRN #20 tab.rapdis 03/12/17 Unknown Rx Acetaminophen [Acetaminophen TAB] 500 mg PO Q6HR PRN #30 tablet 03/26/17 Unknown Rx traMADol [Ultram 50 MG tab] 50 mg PO Q6HR PRN #12 tablet 03/26/17 Unknown Rx Doxycycline Hyclate [Doxycycline 100 mg PO Q12HR #20 tab 03/29/17 Unknown Rx Hyclate TAB] Ibuprofen [Motrin] 800 mg PO Q8HR PRN #15 tablet 03/29/17 Unknown Rx Sulfamethoxazole/Trimethoprim 1 each PO BID #20 tablet 03/29/17 Unknown Rx [Bactrim DS TAB] Famotidine [Pepcid] 20 mg PO BID #30 tablet 05/17/17 Unknown Rx HYDROcodone/APAP 5-325 [[place] 1 - 2 each PO Q6HR PRN #14 tablet 05/17/17 Unknown Rx 5/325] Promethazine [Phenergan TAB] 25 mg PO Q6HR PRN #20 tab 05/17/17 Unknown Rx Promethazine [Phenergan] 25 mg TN Q6HR PRN #5 supp.rect 05/17/17 Unknown Rx HYDROcodone/ACETAMINOPHEN 1 each PO Q6H PRN 2 Days #8 tablet 10/23/17 Unknown Rx [Hydrocodon-Acetaminophen 5-325] Acetaminophen/Codeine [Tylenol 1 tab PO Q6H PRN #14 tab 03/12/18 Unknown Rx /Codeine # 3 tab] Lisinopril [Zestril TAB] 10 mg PO QDAY #40 tablet 03/12/18 Unknown Rx Acetaminophen/Codeine [Tylenol 1 tab PO Q6H PRN #12 tab 07/09/18 Unknown Rx /Codeine # 3 tab] Ibuprofen [Motrin] 600 mg PO Q8H PRN #20 tablet 07/09/18 Unknown Rx Famotidine [Pepcid] 20 mg PO BID #60 tablet 07/15/18 Unknown Rx Naproxen 500 mg PO BID PRN #30 tablet 07/15/18 Unknown Rx Dicyclomine [Bentyl] 20 mg PO QID #10 tablet 08/15/18 Unknown Rx Ibuprofen [Ibu] 800 mg PO Q8H PRN #20 tablet 08/15/18 Unknown Rx Ondansetron [Zofran Odt] 4 mg PO Q8HR #10 tab.rapdis 08/15/18 Unknown Rx Naproxen [Naprosyn] 500 mg PO BID #20 tablet 08/27/18 Unknown Rx Sulfamethoxazole/Trimethoprim 1 each PO BID 7 Days #14 tablet 08/27/18 Unknown Rx [Bactrim DS TAB] cephALEXin [Keflex] 500 mg PO Q12HR 7 Days #14 cap 08/27/18 Unknown Rx Colchicine 0.6 mg PO Q8H PRN #12 capsule 09/08/18 Unknown Rx Ibuprofen [Motrin] 600 mg PO Q8H PRN #12 tablet 09/08/18 Unknown Rx predniSONE [Deltasone] 50 mg PO QDAY 3 Days #3 tab 09/08/18 Unknown Rx Allergies Allergy/AdvReac Type Severity Reaction Status Date / Time docusate Allergy Vomiting Verified 03/12/18 14:09 docusate sodium [From Colace] Allergy Vomiting Verified 03/12/18 14:09 mag citrate Allergy Nausea Uncoded 03/12/18 14:09 ED Review of Systems ROS: Stated complaint: KNEE PAIN Other details as noted in HPI Constitutional: denies: chills, fever Respiratory: denies: cough, shortness of breath, wheezing Cardiovascular: denies: chest pain, palpitations, edema, syncope Gastrointestinal: denies: abdominal pain, nausea, vomiting Musculoskeletal: arthralgia. denies: back pain, joint swelling, myalgia Skin: denies: rash Neurological: denies: headache, weakness, numbness, paresthesias, confusion, abnormal gait, vertigo ED Past Medical Hx - Past Medical History Previous Medical History?: Yes Hx Hypertension: Yes Hx Arthritis: Yes Additional medical history: diverticulitis,. only right kidney. gout - Surgical History Past Surgical History?: Yes Additional Surgical History: colostomy 10/24/12, reversal of colostomy 2013, left kidney removed 1971, left knee surgery 2013. abd surgery x 2,. HERNIA - Family History Family history: hypertension - Social History Smoking Status: Current Every Day Smoker Substance Use Type: Alcohol - Medications Home Medications: Home Medications Medication Instructions Recorded Confirmed Last Taken Type Ibuprofen [Motrin 800 MG tab] 800 mg PO Q8HR PRN #20 tablet 03/31/16 Unknown Rx Acetaminophen/Codeine [Tylenol #3] 1 tab PO Q4HR PRN #20 tablet 06/01/16 Unknown Rx Furosemide [Lasix TAB] 20 mg PO QDAY #7 tablet 06/01/16 Unknown Rx Ciprofloxacin [Ciprofloxacin ORAL 500 mg PO BID #24 ml 08/02/16 Unknown Rx LIQ] metroNIDAZOLE [Flagyl] 500 mg PO Q12HR #24 tab 08/02/16 Unknown Rx traMADol [Ultram 50 MG tab] 50 mg PO Q6H #8 tablet 10/02/16 Unknown Rx Ibuprofen [Motrin] 800 mg PO Q8HR PRN #25 tablet 11/08/16 Unknown Rx cephALEXin [Keflex] 500 mg PO Q12HR #14 cap 11/08/16 Unknown Rx Ibuprofen [Motrin 600 MG tab] 600 mg PO Q8H PRN #20 tablet 11/12/16 Unknown Rx predniSONE [Deltasone] 20 mg PO BID #10 tab 11/12/16 Unknown Rx HYDROcodone/APAP 5-325 [[place] 1 each PO Q6HR PRN #14 tablet 03/12/17 Unknown Rx 5/325] Ondansetron [Zofran Odt] 4 mg PO Q8HR PRN #20 tab.rapdis 03/12/17 Unknown Rx Acetaminophen [Acetaminophen TAB] 500 mg PO Q6HR PRN #30 tablet 03/26/17 Unknown Rx traMADol [Ultram 50 MG tab] 50 mg PO Q6HR PRN #12 tablet 03/26/17 Unknown Rx Doxycycline Hyclate [Doxycycline 100 mg PO Q12HR #20 tab 03/29/17 Unknown Rx Hyclate TAB] Ibuprofen [Motrin] 800 mg PO Q8HR PRN #15 tablet 03/29/17 Unknown Rx Sulfamethoxazole/Trimethoprim 1 each PO BID #20 tablet 03/29/17 Unknown Rx [Bactrim DS TAB] Famotidine [Pepcid] 20 mg PO BID #30 tablet 05/17/17 Unknown Rx HYDROcodone/APAP 5-325 [[place] 1 - 2 each PO Q6HR PRN #14 tablet 05/17/17 Unknown Rx 5/325] Promethazine [Phenergan TAB] 25 mg PO Q6HR PRN #20 tab 05/17/17 Unknown Rx Promethazine [Phenergan] 25 mg TN Q6HR PRN #5 supp.rect 05/17/17 Unknown Rx HYDROcodone/ACETAMINOPHEN 1 each PO Q6H PRN 2 Days #8 tablet 10/23/17 Unknown Rx [Hydrocodon-Acetaminophen 5-325] Acetaminophen/Codeine [Tylenol 1 tab PO Q6H PRN #14 tab 03/12/18 Unknown Rx /Codeine # 3 tab] Lisinopril [Zestril TAB] 10 mg PO QDAY #40 tablet 03/12/18 Unknown Rx Acetaminophen/Codeine [Tylenol 1 tab PO Q6H PRN #12 tab 07/09/18 Unknown Rx /Codeine # 3 tab] Ibuprofen [Motrin] 600 mg PO Q8H PRN #20 tablet 07/09/18 Unknown Rx Famotidine [Pepcid] 20 mg PO BID #60 tablet 07/15/18 Unknown Rx Naproxen 500 mg PO BID PRN #30 tablet 07/15/18 Unknown Rx Dicyclomine [Bentyl] 20 mg PO QID #10 tablet 08/15/18 Unknown Rx Ibuprofen [Ibu] 800 mg PO Q8H PRN #20 tablet 08/15/18 Unknown Rx Ondansetron [Zofran Odt] 4 mg PO Q8HR #10 tab.rapdis 08/15/18 Unknown Rx Naproxen [Naprosyn] 500 mg PO BID #20 tablet 08/27/18 Unknown Rx Sulfamethoxazole/Trimethoprim 1 each PO BID 7 Days #14 tablet 08/27/18 Unknown Rx [Bactrim DS TAB] cephALEXin [Keflex] 500 mg PO Q12HR 7 Days #14 cap 08/27/18 Unknown Rx Colchicine 0.6 mg PO Q8H PRN #12 capsule 09/08/18 Unknown Rx Ibuprofen [Motrin] 600 mg PO Q8H PRN #12 tablet 09/08/18 Unknown Rx predniSONE [Deltasone] 50 mg PO QDAY 3 Days #3 tab 09/08/18 Unknown Rx ED Physical Exam - General Limitations: No Limitations General appearance: alert, in no apparent distress - Head Head exam: Present: atraumatic, normocephalic, normal inspection - Eye Eye exam: Present: normal appearance, PERRL, EOMI - ENT ENT exam: Present: normal exam, normal orophraynx, mucous membranes moist (I am so tired these pupil along the right thing) - Neck Neck exam: Present: normal inspection, full ROM. Absent: tenderness, lymphadenopathy - Respiratory Respiratory exam: Present: normal lung sounds bilaterally. Absent: respiratory distress, chest wall tenderness - Cardiovascular Cardiovascular Exam: Present: regular rate, normal rhythm, normal heart sounds - GI/Abdominal GI/Abdominal exam: Present: soft, normal bowel sounds. Absent: distended, tenderness, organomegaly, mass - Extremities Exam Extremities exam: Present: full ROM (full range of motion to both knees but reports pain to flexion and extension of his left knee), tenderness (left knee), normal capillary refill, other (mild erythema noted to left knee with tenderness to palpate.No cce. + 2 pulses in all extremities, no neurovascular compromise). Absent: pedal edema, joint swelling, calf tenderness - Expanded Lower Extremity Exam Left Hip exam: Present: normal inspection, full ROM, pelvic stability. Absent: tenderness, swelling, abrasion, laceration, ecchymosis, deformity, crepidus, dislocation, erythema, external rotation, internal rotation, shortening Upper Leg exam: Present: normal inspection, full ROM. Absent: tenderness, s welling, abrasion, laceration, ecchymosis, deformity, crepidus, dislocation, erythema Knee exam: Present: full ROM (full range of motion to the left knee but reports pain to flexion and extension), tenderness (tender to palpate to left anterior knee), erythema (mild erythema to left anterior knee), full knee extension (but reports pain). Absent: normal inspection, swelling, abrasion, laceration, ecchymosis, deformity, crepidus, dislocation, effusion, pain/laxity with valgus, pain/laxity with varus Lower Leg exam: Present: normal inspection, full ROM. Absent: tenderness, swelling, abrasion, laceration, ecchymosis, deformity, crepidus, dislocation, erythema, palpable cord, Karson's sign Ankle exam: Present: normal inspection, full ROM. Absent: tenderness, swelling, abrasion, laceration, ecchymosis, deformity, crepidus, dislocation, erythema Foot/Toe exam: Present: normal inspection, full ROM. Absent: tenderness, swelling, abrasion, laceration, ecchymosis, deformity, crepidus, dislocation, erythema, amputation, puncture wound, foreign body, calcaneal tenderness, tenderness at base of 5th metatarsal, nail avulsion, subungual hematoma Neuro vascular tendon exam: Present: no vascular compromise, significant pain with passive ROM of distal joint ( cold but). Absent: pulse deficit, abnormal cap refill, motor deficit, sensory deficit, tendon deficit, extremity cold to touch, pallor, abnormal 2-point discrimination, decreased fine/light touch, foot drop, peroneal nerve deficit (abdomen) Gait: Positive: observed and limited by pain (over) - Back Exam Back exam: Present: normal inspection, full ROM, other (ambulates without any difficulties). Absent: tenderness, CVA tenderness (R), CVA tenderness (L), muscle spasm, paraspinal tenderness, vertebral tenderness, rash noted - Neurological Exam Neurological exam: Present: alert, oriented X3, normal gait - Psychiatric Psychiatric exam: Present: normal affect, normal mood - Skin Skin exam: Present: warm, dry, intact, erythema (mild erythema to left anterior knee) ED Course Vital Signs 09/07/18 09/08/18 09/08/18 21:53 03:36 03:39 Temperature 98.3 F Pulse Rate 79 55 L 100 H Respiratory 18 18 Rate Blood Pressure 149/112 166/94 O2 Sat by Pulse 99 92 Oximetry - Reevaluation(s) Reevaluation #1: 09/08/18 05:02 Patient given Toradol 60 mg IM and Decadron 10 mg and an emergency room and he voiced relief of pain. Blood pressure is better ED Lower Extremity MDM - Radiology Data Radiology results: report reviewed X-ray of left knee 3 views dictated by radiologist and report reviewed by myself. Please see details below Findings [facility] [address] [place] [address] XRay Report Signed Patient: GERMANIA PANTOJA JR MR#: [id number] : 1965 Acct:[id number] Age/Sex: 53 / M ADM Date: 09/07/18 Loc: ED Attending Dr: Ordering Physician: MANUEL MANUEL Date of Service: 09/07/18 Procedure(s): XR knee 3V LT Accession Number(s): [id number] cc: MANUEL MANUEL Fluoro Time In Minutes: PROCEDURE: XR KNEE 3V LT TECHNIQUE: Left knee radiographs, AP, lateral, and oblique views. HISTORY: left knee pain, hx of ligament repair 6 yrs ago COMPARISONS: None FINDINGS: Fracture (s) and/or Dislocation(s): None Alignment: Normal Joint space(s): Normal Soft tissues: Normal Bone mineralization: Normal Foreign bodies: None IMPRESSION: Normal Examination This document is electronically signed by Regina Shepard DO., Sep 08 2018 01:46:18 AM ET Transcribed By: [facility] Dictated By: REGINA SHEPARD MD Electronically Authenticated By: REGINA SHEPARD MD Signed Date/Time: 09/08/18147 DD/ 9 TD/TT: 09/08/18139 - Medical Decision Making This is a 53-year-old male here report that his left knee is hurting in any does not why. He has a history of gout and also past surgery left knee. X-ray of left knee shows no acute abnormality. Physical findings for left knee tender to palpate, pain at range of motion and mild erythema. Patient reports that he had shrimp and bear over the last couple days. I discussed with him that due to his gout condition he cannot have these fluids and I will give him information on food that he should not have and he voiced understanding . Assessment/plan 1: Gout flare up left knee-patient given Toradol and Decadron and pain is better. 2:Arthralgia of left knee better 3:elevated blood pressure with history of hypertension that is better after pain is controlled. Low purine discussed. I discuss x-ray results and diagnosed with patient and he voiced understanding. Patient discharged home in stable condition in no acute distress with prescription for prednisone, Motrin and colcrys. No signs stable, afebrile and pain is better - Differential Diagnosis osteomyelitis ,FX, cellulitis, dislocation, arthritis, gout flare up Critical care attestation.: If time is entered above; I have spent that time in minutes in the direct care of this critically ill patient, excluding procedure time. ED Disposition Clinical Impression: Elevated blood pressure reading with diagnosis of hypertension, Arthralgia of left knee Gout attack Qualifiers: Gout site: knee Gout etiology: other secondary cause Laterality: left Qualified Code(s): M10.462 - Other secondary gout, left knee Disposition: - TO HOME OR SELFCARE Is pt being admited?: No Does the pt Need Aspirin: No Condition: Stable Instructions: Arthralgia (ED), Acute Gouty Arthritis (ED), Low Purine Diet (ED), DASH Eating Plan (ED), Hypertension (ED) Additional Instructions: Please follow discharge instruction on low purine diet. Follow-up with primary care doctor if he do not have a primary care doctor follow-up at [facility] in 2 days Follow-up with orthopedic doctor status post left knee surgery if needed pain continues. If his symptoms worsen, please return to emergency room Rest affected area and take medication as prescribed Referrals: RONNIE DURAN MD [Staff Physician] - 3-5 Days BEAVER WILLIE JUNIOR MD [Primary Care Provider] - 09/10/18
[2018-09-08] MEDS ORDERED: TORADOL IM ONE (02:27)
[2018-09-08] MEDS ORDERED: DECADRON IM STA (02:27)
[2018-09-08 03:37] VITALS: BP 166/94
== END 2018-09-08 05:38 | disposition home or self-care (01) ==
LOC: ED 21:18
DX: M10.462 Other secondary gout, left knee (principal); I10 Essential (primary) hypertension; M19.90 Unspecified osteoarthritis, unspecified site; F17.200 Nicotine dependence, unspecified, uncomplicated; Z79.899 Other long term (current) drug therapy; Z88.8 Allergy status to other drugs, medicaments and biological substances
CPT/HCPCS: 73562; 96372; 99283; J1100; J1885

== ENCOUNTER 2020-05-02 21:34 | Emergency (ER) | payer MEDICAID, OTHER ==
--- NOTE | 2020-05-02 22:24 | Emergency Department Report ---
ED Neck Pain/Injury HPI - General Chief Complaint: Headache Stated Complaint: NECK AND HEADACHE Time Seen by Provider: 05/02/20 22:18 Mode of arrival: Ambulatory Limitations: No Limitations - History of Present Illness Initial Comments: Patient is a 55-year-old male presents emergency room with complaints of right- sided neck pain that began 4 days ago. He denies any fall or injury. Was watching TV when it started. He denies any heavy lifting and states that he does not work. That the pain from the neck radiates up to the head. He denies any vision changes, vomiting, numbness, weakness, bowel or bladder incontinence, neck stiffness. 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 He has an allergy to docusate, ibuprofen, magnesium citrate. Patient states he has been off his lisinopril 20 mg and his Eliquis for 2 days. He states he recently moved back to the area and does not have a doctor that he is seeing. - Related Data Previous Rx's Medication Instructions Recorded Last Taken Type Ibuprofen [Motrin 800 MG tab] 800 mg PO Q8HR PRN #20 tablet 03/31/16 Unknown Rx Acetaminophen/Codeine [Tylenol #3] 1 tab PO Q4HR PRN #20 tablet 06/01/16 Unknown Rx Furosemide [Lasix TAB] 20 mg PO QDAY #7 tablet 06/01/16 Unknown Rx Ciprofloxacin [Ciprofloxacin ORAL 500 mg PO BID #24 ml 08/02/16 Unknown Rx LIQ] metroNIDAZOLE [Flagyl] 500 mg PO Q12HR #24 tab 08/02/16 Unknown Rx traMADoL [Ultram 50 MG tab] 50 mg PO Q6H #8 tablet 10/02/16 Unknown Rx Ibuprofen [Motrin] 800 mg PO Q8HR PRN #25 tablet 11/08/16 Unknown Rx cephALEXin [Keflex] 500 mg PO Q12HR #14 cap 11/08/16 Unknown Rx Ibuprofen [Motrin 600 MG tab] 600 mg PO Q8H PRN #20 tablet 11/12/16 Unknown Rx predniSONE [Deltasone] 20 mg PO BID #10 tab 11/12/16 Unknown Rx HYDROcodone/APAP 5-325 [Buchanan 1 each PO Q6HR PRN #14 tablet 03/12/17 Unknown Rx 5/325] Ondansetron [Zofran Odt] 4 mg PO Q8HR PRN #20 tab.rapdis 03/12/17 Unknown Rx Acetaminophen [Acetaminophen TAB] 500 mg PO Q6HR PRN #30 tablet 03/26/17 Unknown Rx traMADoL [Ultram 50 MG tab] 50 mg PO Q6HR PRN #12 tablet 03/26/17 Unknown Rx Doxycycline Hyclate [Doxycycline 100 mg PO Q12HR #20 tab 03/29/17 Unknown Rx Hyclate TAB] Ibuprofen [Motrin] 800 mg PO Q8HR PRN #15 tablet 03/29/17 Unknown Rx Sulfamethoxazole/Trimethoprim 1 each PO BID #20 tablet 03/29/17 Unknown Rx [Bactrim DS TAB] Famotidine [Pepcid] 20 mg PO BID #30 tablet 05/17/17 Unknown Rx HYDROcodone/APAP 5-325 [Buchanan 1 - 2 each PO Q6HR PRN #14 tablet 05/17/17 Unknown Rx 5/325] Promethazine [Phenergan TAB] 25 mg PO Q6HR PRN #20 tab 05/17/17 Unknown Rx Promethazine [Phenergan] 25 mg VT Q6HR PRN #5 supp.rect 05/17/17 Unknown Rx HYDROcodone/ACETAMINOPHEN 1 each PO Q6H PRN 2 Days #8 tablet 10/23/17 Unknown Rx [Hydrocodon-Acetaminophen 5-325] Acetaminophen/Codeine [Tylenol 1 tab PO Q6H PRN #14 tab 03/12/18 Unknown Rx /Codeine # 3 tab] lisinopriL [Zestril TAB] 10 mg PO QDAY #40 tablet 03/12/18 Unknown Rx Acetaminophen/Codeine [Tylenol 1 tab PO Q6H PRN #12 tab 07/09/18 Unknown Rx /Codeine # 3 tab] Ibuprofen [Motrin] 600 mg PO Q8H PRN #20 tablet 07/09/18 Unknown Rx Famotidine [Pepcid] 20 mg PO BID #60 tablet 07/15/18 Unknown Rx Naproxen 500 mg PO BID PRN #30 tablet 07/15/18 Unknown Rx Dicyclomine [Bentyl] 20 mg PO QID #10 tablet 08/15/18 Unknown Rx Ibuprofen [Ibu] 800 mg PO Q8H PRN #20 tablet 08/15/18 Unknown Rx Ondansetron [Zofran Odt] 4 mg PO Q8HR #10 tab.rapdis 08/15/18 Unknown Rx Naproxen [Naprosyn] 500 mg PO BID #20 tablet 08/27/18 Unknown Rx Sulfamethoxazole/Trimethoprim 1 each PO BID 7 Days #14 tablet 08/27/18 Unknown Rx [Bactrim DS TAB] cephALEXin [Keflex] 500 mg PO Q12HR 7 Days #14 cap 08/27/18 Unknown Rx Colchicine 0.6 mg PO Q8H PRN #12 capsule 09/08/18 Unknown Rx Ibuprofen [Motrin] 600 mg PO Q8H PRN #12 tablet 09/08/18 Unknown Rx predniSONE [Deltasone] 50 mg PO QDAY 3 Days #3 tab 09/08/18 Unknown Rx Acetaminophen [Tylenol] 650 mg PO Q8HR PRN #30 capsule 05/02/20 Unknown Rx Apixaban [Eliquis] 5 mg PO BID 30 Days #60 tablet 05/02/20 Unknown Rx Menthol/Camphor [[place] Keeler 1 applic TP BID #18 oint...g. 05/02/20 Unknown Rx Ointment] Prednisone [predniSONE 10 mg 10 mg PO .TAPER #1 tab.ds.pk 05/02/20 Unknown Rx (6-Day Pack, 21 Tabs)] lisinopriL [Zestril TAB] 20 mg PO QDAY #30 tablet 05/02/20 Unknown Rx methOCARBAMOL [Robaxin TAB] 500 mg PO BID PRN #20 tab 05/02/20 Unknown Rx Allergies Allergy/AdvReac Type Severity Reaction Status Date / Time docusate Allergy Vomiting Verified 03/12/18 14:09 docusate sodium [From Colace] Allergy Vomiting Verified 03/12/18 14:09 ibuprofen [From Motrin] Allergy Unknown Verified 05/02/20 22:02 mag citrate Allergy Nausea Uncoded 03/12/18 14:09 ED Review of Systems ROS: Stated complaint: NECK AND HEADACHE Other details as noted in HPI Comment: All other systems reviewed and negative ED Past Medical Hx - Past Medical History Previous Medical History?: Yes Hx Hypertension: Yes Hx Arthritis: Yes Additional medical history: diverticulitis,. only right kidney. gout - Surgical History Past Surgical History?: Yes Additional Surgical History: colostomy 10/24/12, reversal of colostomy 2013, left kidney removed 1971, left knee surgery 2013. abd surgery x 2,. HERNIA - Social History Smoking Status: Never Smoker Substance Use Type: Alcohol - Medications Home Medications: Home Medications Medication Instructions Recorded Confirmed Last Taken Type Ibuprofen [Motrin 800 MG tab] 800 mg PO Q8HR PRN #20 tablet 03/31/16 Unknown Rx Acetaminophen/Codeine [Tylenol #3] 1 tab PO Q4HR PRN #20 tablet 06/01/16 Unknown Rx Furosemide [Lasix TAB] 20 mg PO QDAY #7 tablet 06/01/16 Unknown Rx Ciprofloxacin [Ciprofloxacin ORAL 500 mg PO BID #24 ml 08/02/16 Unknown Rx LIQ] metroNIDAZOLE [Flagyl] 500 mg PO Q12HR #24 tab 08/02/16 Unknown Rx traMADoL [Ultram 50 MG tab] 50 mg PO Q6H #8 tablet 10/02/16 Unknown Rx Ibuprofen [Motrin] 800 mg PO Q8HR PRN #25 tablet 11/08/16 Unknown Rx cephALEXin [Keflex] 500 mg PO Q12HR #14 cap 11/08/16 Unknown Rx Ibuprofen [Motrin 600 MG tab] 600 mg PO Q8H PRN #20 tablet 11/12/16 Unknown Rx predniSONE [Deltasone] 20 mg PO BID #10 tab 11/12/16 Unknown Rx HYDROcodone/APAP 5-325 [Buchanan 1 each PO Q6HR PRN #14 tablet 03/12/17 Unknown Rx 5/325] Ondansetron [Zofran Odt] 4 mg PO Q8HR PRN #20 tab.rapdis 03/12/17 Unknown Rx Acetaminophen [Acetaminophen TAB] 500 mg PO Q6HR PRN #30 tablet 03/26/17 Unknown Rx traMADoL [Ultram 50 MG tab] 50 mg PO Q6HR PRN #12 tablet 03/26/17 Unknown Rx Doxycycline Hyclate [Doxycycline 100 mg PO Q12HR #20 tab 03/29/17 Unknown Rx Hyclate TAB] Ibuprofen [Motrin] 800 mg PO Q8HR PRN #15 tablet 03/29/17 Unknown Rx Sulfamethoxazole/Trimethoprim 1 each PO BID #20 tablet 03/29/17 Unknown Rx [Bactrim DS TAB] Famotidine [Pepcid] 20 mg PO BID #30 tablet 05/17/17 Unknown Rx HYDROcodone/APAP 5-325 [Buchanan 1 - 2 each PO Q6HR PRN #14 tablet 05/17/17 Unknown Rx 5/325] Promethazine [Phenergan TAB] 25 mg PO Q6HR PRN #20 tab 05/17/17 Unknown Rx Promethazine [Phenergan] 25 mg VT Q6HR PRN #5 supp.rect 05/17/17 Unknown Rx HYDROcodone/ACETAMINOPHEN 1 each PO Q6H PRN 2 Days #8 tablet 10/23/17 Unknown Rx [Hydrocodon-Acetaminophen 5-325] Acetaminophen/Codeine [Tylenol 1 tab PO Q6H PRN #14 tab 03/12/18 Unknown Rx /Codeine # 3 tab] lisinopriL [Zestril TAB] 10 mg PO QDAY #40 tablet 03/12/18 Unknown Rx Acetaminophen/Codeine [Tylenol 1 tab PO Q6H PRN #12 tab 07/09/18 Unknown Rx /Codeine # 3 tab] Ibuprofen [Motrin] 600 mg PO Q8H PRN #20 tablet 07/09/18 Unknown Rx Famotidine [Pepcid] 20 mg PO BID #60 tablet 07/15/18 Unknown Rx Naproxen 500 mg PO BID PRN #30 tablet 07/15/18 Unknown Rx Dicyclomine [Bentyl] 20 mg PO QID #10 tablet 08/15/18 Unknown Rx Ibuprofen [Ibu] 800 mg PO Q8H PRN #20 tablet 08/15/18 Unknown Rx Ondansetron [Zofran Odt] 4 mg PO Q8HR #10 tab.rapdis 08/15/18 Unknown Rx Naproxen [Naprosyn] 500 mg PO BID #20 tablet 08/27/18 Unknown Rx Sulfamethoxazole/Trimethoprim 1 each PO BID 7 Days #14 tablet 08/27/18 Unknown Rx [Bactrim DS TAB] cephALEXin [Keflex] 500 mg PO Q12HR 7 Days #14 cap 08/27/18 Unknown Rx Colchicine 0.6 mg PO Q8H PRN #12 capsule 09/08/18 Unknown Rx Ibuprofen [Motrin] 600 mg PO Q8H PRN #12 tablet 09/08/18 Unknown Rx predniSONE [Deltasone] 50 mg PO QDAY 3 Days #3 tab 09/08/18 Unknown Rx Acetaminophen [Tylenol] 650 mg PO Q8HR PRN #30 capsule 05/02/20 Unknown Rx Apixaban [Eliquis] 5 mg PO BID 30 Days #60 tablet 05/02/20 Unknown Rx Menthol/Camphor [[place] Keeler 1 applic TP BID #18 oint...g. 05/02/20 Unknown Rx Ointment] Prednisone [predniSONE 10 mg 10 mg PO .TAPER #1 tab.ds.pk 05/02/20 Unknown Rx (6-Day Pack, 21 Tabs)] lisinopriL [Zestril TAB] 20 mg PO QDAY #30 tablet 05/02/20 Unknown Rx methOCARBAMOL [Robaxin TAB] 500 mg PO BID PRN #20 tab 05/02/20 Unknown Rx ED Physical Exam - General Limitations: No Limitations General appearance: alert, in no apparent distress - Head Head exam: Present: atraumatic, normocephalic - Eye Eye exam: Present: normal appearance - ENT ENT exam: Present: mucous membranes moist - Neck Neck exam: Present: normal inspection, tenderness (right sided C-spine paraspinal muscular ttp, no midline C-spine ttp, no step offs, no deformities, no crepitus, no edema, no ecchymosis), full ROM, other (no bruit). Absent: meningismus, lymphadenopathy - Respiratory Respiratory exam: Present: normal lung sounds bilaterally. Absent: respiratory distress, wheezes, rales, rhonchi, stridor, chest wall tenderness, accessory muscle use, decreased breath sounds, prolonged expiratory - Cardiovascular Cardiovascular Exam: Present: regular rate, normal rhythm, normal heart sounds. Absent: systolic murmur, diastolic murmur, rubs, gallop - Back Exam Back exam: Present: normal inspection, full ROM. Absent: paraspinal tenderness, vertebral tenderness - Neurological Exam Neurological exam: Present: alert, oriented X3, CN II-XII intact, normal gait. Absent: motor sensory deficit - Psychiatric Psychiatric exam: Present: normal affect, normal mood - Skin Skin exam: Present: warm, dry, intact ED Course Vital Signs 05/02/20 22:04 Temperature 98.1 F Pulse Rate 98 H Respiratory 18 Rate Blood Pressure 134/96 O2 Sat by Pulse 95 Oximetry ED Medical Decision Making - Medical Decision Making Patient is a 55-year-old male presents emergency room with complaints of right- sided neck pain that began 4 days ago. He denies any fall or injury. Was watching TV when it started. He denies any heavy lifting and states that he does not work. That the pain from the neck radiates up to the head. He denies any vision changes, vomiting, numbness, weakness, bowel or bladder incontinence, neck stiffness. 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 He has an allergy to docusate, ibuprofen, magnesium citrate. Patient states he has been off his lisinopril 20 mg and his Eliquis for 2 days. He states he recently moved back to the area and does not have a doctor that he is seeing. VSS. on exam: right sided C-spine paraspinal muscular ttp, no midline C-spine ttp, no step offs, no deformities, no crepitus, no edema, no ecchymosis, no focal neuro deficits. Examination appears most consistent with cervical muscle strain. Patient has no midline tenderness, no step-offs, no deformities. No focal neuro deficits, no meningeal signs. He has had no traumatic injury. Patient given prescription for Tylenol, Robaxin, Nemaha balm ointment, prednisone. Patient also given a one month refill of his home medications of lisinopril and Eliquis. advised pt Please use medication as prescribed. May use ice pack, heating pad, rest, Epsom salt bath. Follow-up with a primary care doctor. Follow-up with orthopedic/spine doctor. Return to emergency room for any new or worsening symptoms. Critical care attestation.: If time is entered above; I have spent that time in minutes in the direct care of this critically ill patient, excluding procedure time. ED Disposition Clinical Impression: Medication refill Cervical strain Qualifiers: Encounter type: initial encounter Qualified Code(s): S16.1XXA - Strain of muscle, fascia and tendon at neck level, initial encounter Disposition: - TO HOME OR SELFCARE Is pt being admited?: No Does the pt Need Aspirin: No Condition: Stable Instructions: Muscle Strain, [id number] Additional Instructions: Please use medication as prescribed. May use ice pack, heating pad, rest, Epsom salt bath. Follow-up with a primary care doctor. Follow-up with orthopedic/spine doctor. Return to emergency room for any new or worsening symptoms. Prescriptions: Apixaban [Eliquis] 5 mg PO BID 30 Days #60 tablet Prednisone [predniSONE 10 mg (6-Day Pack, 21 Tabs)] 10 mg PO .TAPER #1 tab.ds.pk methOCARBAMOL [Robaxin TAB] 500 mg PO BID PRN #20 tab PRN Reason: pain Menthol/Camphor [Nemaha Keeler Ointment] 1 applic TP BID #18 oint...g. Acetaminophen [Tylenol] 650 mg PO Q8HR PRN #30 capsule PRN Reason: pain lisinopriL [Zestril TAB] 20 mg PO QDAY #30 tablet Referrals: [facility] MD MIGUEL [Primary Care Provider] - 3-5 Days GUILLERMO BRYSON MD [Staff Physician] - 3-5 Days [facility] [place], [LAB/CONTRACT] - 3-5 Days [facility] [Provider Group] - 3-5 Days KADE JENKINS II, MD [Staff Physician] - 3-5 Days Time of Disposition: 22:24 Print Language: CHINESE
[2020-05-02 22:40] VITALS: BP 134/96
== END 2020-05-02 22:40 | disposition home or self-care (01) ==
LOC: ED 21:34
DX: S16.1XXA Strain of muscle, fascia and tendon at neck level, initial encounter (principal); Z76.0 Encounter for issue of repeat prescription; I10 Essential (primary) hypertension; M19.91 Primary osteoarthritis, unspecified site; Z98.890 Other specified postprocedural states; Z79.1 Long term (current) use of non-steroidal anti-inflammatories (NSAID); Z79.899 Other long term (current) drug therapy; Z88.8 Allergy status to other drugs, medicaments and biological substances; X58.XXXA Exposure to other specified factors, initial encounter; Y93.89 Activity, other specified; Y92.89 Other specified places as the place of occurrence of the external cause; Y99.8 Other external cause status
CPT/HCPCS: 99282

== ENCOUNTER 2021-01-09 09:59 | Emergency (ER) | payer MEDICAID ==
--- NOTE | 2021-01-09 10:34 | Event Note ---
ED Screening Note ED Screening Note: Patient presents for left elbow and left arm swelling and pain that began a few days ago He denies any fall or injury He states he is not working Patient states he is also had shortness of breath for 2 weeks He reports that last year he had COVID-19 and developed a blood clot and he states that he only takes the Eliquis when he feels like it He is noncompliant with the Eliquis treatment This initial assessment/diagnostic orders/clinical plan/treatment(s) is/are subject to change based on patients health status, clinical progression and re- assessment by fellow clinical providers in the ED. Further treatment and workup at subsequent clinical providers discretion. Patient/guardian urged not to elope from the ED as their condition may be serious if not clinically assessed and managed. Initial orders include: Labs, x-ray, EKG
[2021-01-09 10:45] VITALS: BP 183/111
[2021-01-09] MEDS ORDERED: MORPHINE 4 MG/1 ML INJ IV ONE (11:01)
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
--- NOTE | 2021-01-09 11:22 | Emergency Department Report ---
HPI - General Chief Complaint: Extremity Problem,Nontraumatic Time Seen by Provider: 01/09/21 10:31 - HPI HPI: This is a 56-year-old -[place] male presents to the emergency department with a complaint of a 4 to 5-day history of right upper extremity pain and swelling from the elbow down through the hand. He denies any trauma, injury, or inciting event. Patient also complains of a few days of pain to the bilateral legs. He has concerned that he could have redeveloped blood clots as he does have a history of DVT and admits to some noncompliance with anticoagulation, Eliquis. Patient has history of arthritis, hypertension, diverticulitis, left nephrectomy, and a significant abdominal surgical history including intestinal resection, colostomy's, reversal, hernia surgery. Patient tried some ibuprofen for his symptoms prior to presentation without much relief. He denies any fever, chest pain, shortness of breath, nausea, vomiting or diaphoresis. ED Past Medical Hx - Past Medical History Previous Medical History?: Yes Hx Hypertension: Yes Hx Arthritis: Yes Additional medical history: diverticulitis,. only right kidney. gout - Surgical History Past Surgical History?: Yes Additional Surgical History: colostomy 10/24/12, reversal of colostomy 2013, left kidney removed 1971, left knee surgery 2013. abd surgery x 2,. HERNIA - Social History Smoking Status: Never Smoker Substance Use Type: None - Medications Home Medications: Home Medications Medication Instructions Recorded Confirmed Last Taken Type Ibuprofen [Motrin 800 MG tab] 800 mg PO Q8HR PRN #20 tablet 03/31/16 Unknown Rx Acetaminophen/Codeine [Tylenol #3] 1 tab PO Q4HR PRN #20 tablet 06/01/16 Unknown Rx Furosemide [Lasix TAB] 20 mg PO QDAY #7 tablet 06/01/16 Unknown Rx Ciprofloxacin [Ciprofloxacin ORAL 500 mg PO BID #24 ml 08/02/16 Unknown Rx LIQ] metroNIDAZOLE [Flagyl] 500 mg PO Q12HR #24 tab 08/02/16 Unknown Rx traMADoL [Ultram 50 MG tab] 50 mg PO Q6H #8 tablet 10/02/16 Unknown Rx Ibuprofen [Motrin] 800 mg PO Q8HR PRN #25 tablet 11/08/16 Unknown Rx cephALEXin [Keflex] 500 mg PO Q12HR #14 cap 11/08/16 Unknown Rx Ibuprofen [Motrin 600 MG tab] 600 mg PO Q8H PRN #20 tablet 11/12/16 Unknown Rx HYDROcodone/APAP 5-325 [[place] 1 each PO Q6HR PRN #14 tablet 03/12/17 Unknown Rx 5/325] Ondansetron [Zofran Odt] 4 mg PO Q8HR PRN #20 tab.rapdis 03/12/17 Unknown Rx Acetaminophen [Acetaminophen TAB] 500 mg PO Q6HR PRN #30 tablet 03/26/17 Unknown Rx traMADoL [Ultram 50 MG tab] 50 mg PO Q6HR PRN #12 tablet 03/26/17 Unknown Rx Doxycycline Hyclate [Doxycycline 100 mg PO Q12HR #20 tab 03/29/17 Unknown Rx Hyclate TAB] Ibuprofen [Motrin] 800 mg PO Q8HR PRN #15 tablet 03/29/17 Unknown Rx Sulfamethoxazole/Trimethoprim 1 each PO BID #20 tablet 03/29/17 Unknown Rx [Bactrim DS TAB] Famotidine [Pepcid] 20 mg PO BID #30 tablet 05/17/17 Unknown Rx HYDROcodone/APAP 5-325 [[place] 1 - 2 each PO Q6HR PRN #14 tablet 05/17/17 Unknown Rx 5/325] Promethazine [Phenergan TAB] 25 mg PO Q6HR PRN #20 tab 05/17/17 Unknown Rx Promethazine [Phenergan] 25 mg [place] Q6HR PRN #5 supp.rect 05/17/17 Unknown Rx HYDROcodone/ACETAMINOPHEN 1 each PO Q6H PRN 2 Days #8 tablet 10/23/17 Unknown Rx [Hydrocodon-Acetaminophen 5-325] Acetaminophen/Codeine [Tylenol 1 tab PO Q6H PRN #14 tab 03/12/18 Unknown Rx /Codeine # 3 tab] lisinopriL [Zestril TAB] 10 mg PO QDAY #40 tablet 03/12/18 Unknown Rx Acetaminophen/Codeine [Tylenol 1 tab PO Q6H PRN #12 tab 07/09/18 Unknown Rx /Codeine # 3 tab] Ibuprofen [Motrin] 600 mg PO Q8H PRN #20 tablet 07/09/18 Unknown Rx Famotidine [Pepcid] 20 mg PO BID #60 tablet 07/15/18 Unknown Rx Naproxen 500 mg PO BID PRN #30 tablet 07/15/18 Unknown Rx Dicyclomine [Bentyl] 20 mg PO QID #10 tablet 08/15/18 Unknown Rx Ibuprofen [Ibu] 800 mg PO Q8H PRN #20 tablet 08/15/18 Unknown Rx Ondansetron [Zofran Odt] 4 mg PO Q8HR #10 tab.rapdis 08/15/18 Unknown Rx Naproxen [Naprosyn] 500 mg PO BID #20 tablet 08/27/18 Unknown Rx Sulfamethoxazole/Trimethoprim 1 each PO BID 7 Days #14 tablet 08/27/18 Unknown Rx [Bactrim DS TAB] cephALEXin [Keflex] 500 mg PO Q12HR 7 Days #14 cap 08/27/18 Unknown Rx Colchicine 0.6 mg PO Q8H PRN #12 capsule 09/08/18 Unknown Rx Ibuprofen [Motrin] 600 mg PO Q8H PRN #12 tablet 09/08/18 Unknown Rx predniSONE [Deltasone] 50 mg PO QDAY 3 Days #3 tab 09/08/18 Unknown Rx Acetaminophen [Tylenol] 650 mg PO Q8HR PRN #30 capsule 05/02/20 Unknown Rx Apixaban [Eliquis] 5 mg PO BID 30 Days #60 tablet 05/02/20 Unknown Rx Menthol/Camphor [[place] 1 applic TP BID #18 oint...g. 05/02/20 Unknown Rx Ointment] Prednisone [predniSONE 10 mg 10 mg PO .TAPER #1 tab.ds.pk 05/02/20 Unknown Rx (6-Day Pack, 21 Tabs)] lisinopriL [Zestril TAB] 20 mg PO QDAY #30 tablet 05/02/20 Unknown Rx methOCARBAMOL [Robaxin TAB] 500 mg PO BID PRN #20 tab 05/02/20 Unknown Rx Sulfamethoxazole/Trimethoprim 1 each PO BID #14 tablet 01/09/21 Unknown Rx [Bactrim DS TAB] predniSONE [Deltasone] 20 mg PO BID #8 tab 01/09/21 Unknown Rx ED Review of Systems ROS: Stated complaint: LFT ARM SWOLLEN Other details as noted in HPI Comment: All other systems reviewed and negative Constitutional: denies: chills, fever Eyes: denies: eye pain, vision change ENT: denies: ear pain, throat pain Respiratory: denies: cough, shortness of breath Cardiovascular: edema. denies: chest pain Gastrointestinal: denies: abdominal pain, vomiting Genitourinary: denies: dysuria, discharge Musculoskeletal: joint swelling, arthralgia, myalgia Skin: denies: rash, lesions Neurological: denies: headache, numbness, paresthesias Physical Exam - Physical Exam Vital Signs: Vital Signs 01/09/21 10:44 Temperature 97.9 F Pulse Rate 100 H Respiratory 16 Rate Blood Pressure 183/111 [Right] O2 Sat by Pulse 100 Oximetry Physical Exam: GENERAL: The patient is well-developed well-nourished. HENT: Normocephalic. Atraumatic. Patient has moist mucous membranes. EYES: Extraocular motions are intact. NECK: Supple. Trachea is midline. CHEST/LUNGS: Clear to auscultation. There is no respiratory distress noted. HEART/CARDIOVASCULAR: Regular. There is no tachycardia. There is no murmur. ABDOMEN: Abdomen is soft, nontender. Patient has normal bowel sounds. There is no abdominal distention. SKIN: There is some very mild nonpitting swelling to the right upper extremity from the wrist to the elbow, and there is some swelling to the right olecranon. Mild erythema and warmth. No fluctuance. No rash or lesions. NEURO: The patient is awake, alert, and oriented. The patient is cooperative. The patient has no focal neurologic deficits. Normal speech. MUSCULOSKELETAL: There is tenderness to palpation to the right upper extremity from the wrist to the elbow. There is some olecranon bursitis visible. Radial pulse +2/4 and capillary refill less than 2 seconds to the affected right upper extremity. There is no limitation range of motion. ED Course Vital Signs 01/09/21 10:44 Temperature 97.9 F Pulse Rate 100 H Respiratory 16 Rate Blood Pressure 183/111 [Right] O2 Sat by Pulse 100 Oximetry ED Medical Decision Making - Lab Data Result diagrams: 01/09/21 12:58 01/09/21 12:58 Lab Results 01/09/21 01/09/21 01/09/21 Range/Units 12:58 12:58 12:58 WBC 7.3 (4.5-11.0) K/mm3 RBC 5.21 H (3.65-5.03) M/mm3 Hgb 15.1 (11.8-15.2) gm/dl Hct 46.3 H (35.5-45.6) % MCV 89 (84-94) fl MCH 29 (28-32) pg MCHC 33 (32-34) % RDW 17.1 H (13.2-15.2) % Plt Count 412 (140-440) K/mm3 Lymph % (Auto) 34.8 (13.4-35.0) % [place] % (Auto) 15.1 H (0.0-7.3) % Eos % (Auto) 0.3 (0.0-4.3) % Baso % (Auto) 0.4 (0.0-1.8) % Lymph # (Auto) 2.6 (1.2-5.4) K/mm3 [place] # (Auto) 1.1 H (0.0-0.8) K/mm3 Eos # (Auto) 0.0 (0.0-0.4) K/mm3 Baso # (Auto) 0.0 (0.0-0.1) K/mm3 Seg Neutrophils % 49.4 (40.0-70.0) % Seg Neutrophils # 3.6 (1.8-7.7) K/mm3 Sodium 139 (137-145) mmol/L Potassium 4.3 (3.6-5.0) mmol/L Chloride 98.6 (98-107) mmol/L Carbon Dioxide 29 (22-30) mmol/L Anion Gap 16 mmol/L BUN 13 (9-20) mg/dL Creatinine 1.0 (0.8-1.3) mg/dL Estimated GFR > 60 ml/min BUN/Creatinine Ratio 13 % Glucose 72 L (75-100) mg/dL Uric Acid 11.4 H (3.5-7.6) mg/dL Calcium 9.3 (8.4-10.2) mg/dL Total Bilirubin 0.30 (0.1-1.2) mg/dL AST 18 (5-40) units/L ALT 25 (7-56) units/L Alkaline Phosphatase 68 (35-129) units/L Troponin T < 0.010 (0.00-0.029) ng/mL C-Reactive Protein 0.20 (0.00-1.30) mg/dL NT-Pro-B Natriuret Pep 70.38 (0-900) pg/mL Total Protein 7.7 (6.3-8.2) g/dL Albumin 4.2 (3.9-5) g/dL Albumin/Globulin Ratio 1.2 % - Radiology Data Radiology results: report reviewed, image reviewed interpreted by me: X-ray of the right forearm does not show any fracture, dislocation, signs of osteomyelitis, subcutaneous gas, or any other acute process. Chest x-ray does not show any acute process. There are no pleural effusions, obvious pneumonia and there is no pneumothorax. No widened mediastinum. VL venous duplex LE BILAT INDICATION / CLINICAL INFORMATION: b/l LE swelling, hx of DVT, noncompliance with med. TECHNIQUE: Duplex doppler imaging was performed using venous compression and other maneuvers. COMPARISON: None available. FINDINGS: No venous thrombosis is identified within the visualized extremity vasculature. ADDITIONAL FINDINGS: None. IMPRESSION: 1. No sonographic evidence for DVT in the visualized bilateral lower extremity vasculature. VL venous duplex UE RT INDICATION / CLINICAL INFORMATION: RUE pain and swelling. TECHNIQUE: Duplex doppler imaging was performed using venous compression and other maneuvers. COMPARISON: None available. FINDINGS: No venous thrombosis is identified within the visualized extremity vasculature. ADDITIONAL FINDINGS: None. IMPRESSION: 1. No sonographic evidence for DVT in the visualized right upper extremity vasculature. - Medical Decision Making This patient presents with a 4 to 5-day history of right upper extremity pain and swelling. The patient also says that he has some intermittent bilateral lower extremity pain with a history of DVT and anticoagulation noncompliance. A venous Doppler ultrasound was done of the right upper extremity and the bilateral lower extremities without any evidence of DVT or acute process. On examination the patient has mild nonpitting swelling to the right upper extremity from the elbow to the wrist, and this area also has some mild erythema and warmth. The patient also has right olecranon bursitis. The patient is neurovascular intact. An x-ray was done of the right forearm that does not show any fracture, dislocation, subcutaneous gas, signs of osteomyelitis, or any other acute process. Patient was given 2 doses of IV analgesia with great improvement of his dis comfort. Labs have been mostly remarkable including CBC, metabolic panel, negative troponin, normal CRP. The patient does have an elevated uric acid level. Patient symptoms appear to be a combination of gout and possibly some mild cellulitis. He has been placed on steroids and antibiotics. He has been given an outpatient referral for orthopedist and instructed to follow-up with his primary care physician. He will return to the emergency department with any worsening of symptoms or with any acute distress. Critical Care Time: No Critical care attestation.: If time is entered above; I have spent that time in minutes in the direct care of this critically ill patient, excluding procedure time. ED Disposition Clinical Impression: Gout attack, Right arm cellulitis, Hypertension Disposition: HOME / SELF CARE / HOMELESS Is pt being admited?: No Condition: Stable Instructions: Low-Purine Eating Plan, Cellulitis, Adult, Uric Acid Nephropathy, Hypertension (ED) Additional Instructions: Please follow-up with your primary care physician in the next few days. I have given you a referral for a local orthopedist, Dr. See, to follow-up regarding your right arm pain and swelling. Take all medications as prescribed. Return to the emergency department with any worsening of your symptoms, new or concerning symptoms not addressed during this current emergency department visit, or with any acute distress. Please try to stay away from foods that are high in salt and caffeinated products. Keep a blood pressure log. Prescriptions: Sulfamethoxazole/Trimethoprim [Bactrim DS TAB] 1 each PO BID #14 tablet predniSONE [Deltasone] 20 mg PO BID #8 tab Referrals: OCTAVIO OBRIEN MD [Primary Care Provider] - 3-5 Days RONNIE SEE MD [Staff Physician] - 3-5 Days Time of Disposition: 15:19
--- NOTE | 2021-01-09 11:49 | XRay Report ---
XR forearm RT INDICATION / CLINICAL INFORMATION: right forearm pain and swelling. COMPARISON: None available. FINDINGS: No acute fracture. Normal alignment. Joint spaces are preserved. No destructive osseous lesion or s uspicious periosteal reaction. Impression: 1.No acute findings. Signer Name: Robert Aden MD Signed: 01/09/2021 11:45 AM Workstation Name: [email or web address]
--- NOTE | 2021-01-09 12:22 | Vascular Lab Report ---
VL venous duplex UE RT INDICATION / CLINICAL INFORMATION: RUE pain and swelling. TECHNIQUE: Duplex doppler imaging was performed using venous compression and other maneuvers. COMPARISON: None available. FINDINGS: No venous thrombosis is identified within the visualized extremity vasculature. ADDITIONAL FINDINGS: None. IMPRESSION: 1. No sonographic evidence for DVT in the visualized right upper extremity vasculature. Signer Name: Robert Aden MD Signed: 01/09/2021 12:18 PM Workstation Name: [email or web address]
--- NOTE | 2021-01-09 12:23 | Vascular Lab Report ---
VL venous duplex LE BILAT INDICATION / CLINICAL INFORMATION: b/l LE swelling, hx of DVT, noncompliance with med. TECHNIQUE: Duplex doppler imaging was performed using venous compression and other maneuvers. COMPARISON: None available. FINDINGS: No venous thrombosis is identified within the visualized extremity vasculature. ADDITIONAL FINDINGS: None. IMPRESSION: 1. No sonographic evidence for DVT in the visualized bilateral lower extremity vasculature. Signer Name: Robert Aden MD Signed: 01/09/2021 12:18 PM Workstation Name: [email or web address]
[2021-01-09] MEDS ORDERED: HYDROmorphone 1 MG/1 ML INJ IV ONE (13:06)
[2021-01-09 14:34] LABS: Basophils % (Auto) 0.4 % (0.0-1.8); Eosinophils % (Auto) 0.3 % (0.0-4.3); Hematocrit 46.3 % (35.5-45.6); Hemoglobin 15.1 gm/dl (11.8-15.2); Lymphocytes # (Auto) 2.6 K/mm3 (1.2-5.4); Lymphocytes % (Auto) 34.8 % (13.4-35.0); Mean Corpuscular HGB Conc 33 % (32-34); Mean Corpuscular Volume 89 fl (84-94); Monocytes # (Auto) 1.1 K/mm3 (0.0-0.8); Monocytes % (Auto) 15.1 % (0.0-7.3); Platelet Count 412 K/mm3 (140-440); Red Blood Count 5.21 M/mm3 (3.65-5.03); Red Cell Distribution Width 17.1 % (13.2-15.2)
[2021-01-09 15:14] LABS: Alanine Aminotransferase 25 units/L (7-56); Albumin 4.2 g/dL (3.9-5); BUN/Creatinine Ratio 13; Blood Urea Nitrogen 13 mg/dL (9-20); Calcium 9.3 mg/dL (8.4-10.2); Hemolysis Index 33
== END 2021-01-09 15:20 | disposition home or self-care (01) ==
LOC: ED 09:59
DX: M10.9 Gout, unspecified (principal); L03.113 Cellulitis of right upper limb; I10 Essential (primary) hypertension
CPT/HCPCS: 36415; 71046; 73090; 80053; 83880; 84484; 84550; 85025; 86140; 93970; 93971; 96374; 96375; 99284; J1170; J2270

== ENCOUNTER 2021-01-21 19:02 | Emergency (ER) | payer MEDICAID ==
[2021-01-21 19:27] VITALS: BP 171/119
[2021-01-21 20:12] LABS: Basophils # (Auto) 0.1 K/mm3 (0.0-0.1); Basophils % (Auto) 1.1 % (0.0-1.8); Eosinophils # (Auto) 0.1 K/mm3 (0.0-0.4); Eosinophils % (Auto) 1.2 % (0.0-4.3); Hematocrit 44.1 % (35.5-45.6); Hemoglobin 14.7 gm/dl (11.8-15.2); Lymphocytes # (Auto) 1.8 K/mm3 (1.2-5.4); Mean Corpuscular HGB Conc 33 % (32-34); Mean Corpuscular Volume 88 fl (84-94); Monocytes # (Auto) 0.7 K/mm3 (0.0-0.8); Monocytes % (Auto) 15.1 % (0.0-7.3); Platelet Count 262 K/mm3 (140-440); Red Blood Count 5.03 M/mm3 (3.65-5.03); Red Cell Distribution Width 16.4 % (13.2-15.2)
--- NOTE | 2021-01-21 20:12 | XRay Report ---
CHEST 2 VIEWS INDICATION / CLINICAL INFORMATION: chest pain. COMPARISON: 01/09/2021 FINDINGS: SUPPORT DEVICES: None. HEART / MEDIASTINUM: No significant abnormality. LUNGS / PLEURA: No significant pulmonary or pleural abnormality. No pneumothorax. ADDITIONAL FINDINGS: No significant additional findings. IMPRESSION: 1. No acute findings. Signer Name: Kristopher Dobson MD Signed: 01/21/2021 8:07 PM Workstation Name: [id number]
[2021-01-21 20:19] LABS: INR 0.95 (0.87-1.13)
[2021-01-21 20:45] LABS: Alanine Aminotransferase 21 units/L (7-56); Albumin 4.3 g/dL (3.9-5); BUN/Creatinine Ratio 14; Blood Urea Nitrogen 18 mg/dL (9-20); Calcium 9.6 mg/dL (8.4-10.2); Hemolysis Index 5
--- NOTE | 2021-01-21 20:57 | Emergency Department Report ---
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 Patient states that pain has been persistent, and worse with any movement or an active range of motion. Patient states that at night the pain gets worse when he lays down. Patient states that he has previously taken [place] 10 mg - 325 mg for his chronic pain but which he ran out of a few months ago. Patient denies dizziness, syncope, fever, chills, cough, traumatic injury, heavy lifting, nausea and vomiting, shortness of breath, abdominal pain, low back pain or palpitations. MD Complaint: neck pain (Left lateral neck pain), upper back pain (Left upper back and left lateral chest wall pain), other (Left shoulder and distal left arm tingling and numbness.) -: Sudden, days(s) (4) Place: home Radiation: left lateral, left shoulder, chest (Left-sided chest wall pain), left upper extremity Severity: moderate, constant Severity scale (0 -10): 5 Quality: sharp, aching Consistency: constant Improves With: none Worsens With: movement of extremity, movement of neck Context: other (left ) Associated Symptoms: numbness, tingling. denies: weakness, vertigo, difficulty walking, swollen glands, difficulty swallowing, nausea, vomiting Treatments Prior to Arrival: none - Related Data Previous Rx's Medication Instructions Recorded Last Taken Type Ibuprofen [Motrin 800 MG tab] 800 mg PO Q8HR PRN #20 tablet 03/31/16 Unknown Rx Acetaminophen/Codeine [Tylenol #3] 1 tab PO Q4HR PRN #20 tablet 06/01/16 Unknown Rx Furosemide [Lasix TAB] 20 mg PO QDAY #7 tablet 06/01/16 Unknown Rx Ciprofloxacin [Ciprofloxacin ORAL 500 mg PO BID #24 ml 08/02/16 Unknown Rx LIQ] metroNIDAZOLE [Flagyl] 500 mg PO Q12HR #24 tab 08/02/16 Unknown Rx traMADoL [Ultram 50 MG tab] 50 mg PO Q6H #8 tablet 10/02/16 Unknown Rx Ibuprofen [Motrin] 800 mg PO Q8HR PRN #25 tablet 11/08/16 Unknown Rx cephALEXin [Keflex] 500 mg PO Q12HR #14 cap 11/08/16 Unknown Rx Ibuprofen [Motrin 600 MG tab] 600 mg PO Q8H PRN #20 tablet 11/12/16 Unknown Rx HYDROcodone/APAP 5-325 [[place] 1 each PO Q6HR PRN #14 tablet 03/12/17 Unknown Rx 5/325] Ondansetron [Zofran Odt] 4 mg PO Q8HR PRN #20 tab.rapdis 03/12/17 Unknown Rx Acetaminophen [Acetaminophen TAB] 500 mg PO Q6HR PRN #30 tablet 03/26/17 Unknown Rx traMADoL [Ultram 50 MG tab] 50 mg PO Q6HR PRN #12 tablet 03/26/17 Unknown Rx Doxycycline Hyclate [Doxycycline 100 mg PO Q12HR #20 tab 03/29/17 Unknown Rx Hyclate TAB] Ibuprofen [Motrin] 800 mg PO Q8HR PRN #15 tablet 03/29/17 Unknown Rx Sulfamethoxazole/Trimethoprim 1 each PO BID #20 tablet 03/29/17 Unknown Rx [Bactrim DS TAB] Famotidine [Pepcid] 20 mg PO BID #30 tablet 05/17/17 Unknown Rx HYDROcodone/APAP 5-325 [[place] 1 - 2 each PO Q6HR PRN #14 tablet 05/17/17 Unknown Rx 5/325] Promethazine [Phenergan TAB] 25 mg PO Q6HR PRN #20 tab 05/17/17 Unknown Rx Promethazine [Phenergan] 25 mg IN Q6HR PRN #5 supp.rect 05/17/17 Unknown Rx HYDROcodone/ACETAMINOPHEN 1 each PO Q6H PRN 2 Days #8 tablet 10/23/17 Unknown Rx [Hydrocodon-Acetaminophen 5-325] Acetaminophen/Codeine [Tylenol 1 tab PO Q6H PRN #14 tab 03/12/18 Unknown Rx /Codeine # 3 tab] lisinopriL [Zestril TAB] 10 mg PO QDAY #40 tablet 03/12/18 Unknown Rx Acetaminophen/Codeine [Tylenol 1 tab PO Q6H PRN #12 tab 07/09/18 Unknown Rx /Codeine # 3 tab] Ibuprofen [Motrin] 600 mg PO Q8H PRN #20 tablet 07/09/18 Unknown Rx Famotidine [Pepcid] 20 mg PO BID #60 tablet 07/15/18 Unknown Rx Naproxen 500 mg PO BID PRN #30 tablet 07/15/18 Unknown Rx Dicyclomine [Bentyl] 20 mg PO QID #10 tablet 08/15/18 Unknown Rx Ibuprofen [Ibu] 800 mg PO Q8H PRN #20 tablet 08/15/18 Unknown Rx Ondansetron [Zofran Odt] 4 mg PO Q8HR #10 tab.rapdis 08/15/18 Unknown Rx Naproxen [Naprosyn] 500 mg PO BID #20 tablet 08/27/18 Unknown Rx Sulfamethoxazole/Trimethoprim 1 each PO BID 7 Days #14 tablet 08/27/18 Unknown Rx [Bactrim DS TAB] cephALEXin [Keflex] 500 mg PO Q12HR 7 Days #14 cap 08/27/18 Unknown Rx Colchicine 0.6 mg PO Q8H PRN #12 capsule 09/08/18 Unknown Rx Ibuprofen [Motrin] 600 mg PO Q8H PRN #12 tablet 09/08/18 Unknown Rx predniSONE [Deltasone] 50 mg PO QDAY 3 Days #3 tab 09/08/18 Unknown Rx Acetaminophen [Tylenol] 650 mg PO Q8HR PRN #30 capsule 05/02/20 Unknown Rx Apixaban [Eliquis] 5 mg PO BID 30 Days #60 tablet 05/02/20 Unknown Rx Menthol/Camphor [[place] 1 applic TP BID #18 oint...g. 05/02/20 Unknown Rx Ointment] Prednisone [predniSONE 10 mg 10 mg PO .TAPER #1 tab.ds.pk 05/02/20 Unknown Rx (6-Day Pack, 21 Tabs)] lisinopriL [Zestril TAB] 20 mg PO QDAY #30 tablet 05/02/20 Unknown Rx methOCARBAMOL [Robaxin TAB] 500 mg PO BID PRN #20 tab 05/02/20 Unknown Rx Sulfamethoxazole/Trimethoprim 1 each PO BID #14 tablet 01/09/21 Unknown Rx [Bactrim DS TAB] predniSONE [Deltasone] 20 mg PO BID #8 tab 01/09/21 Unknown Rx Gabapentin 300 mg PO Q12H #60 cap 01/22/21 Unknown Rx predniSONE [Deltasone] 40 mg PO QDAY #10 tab 01/22/21 Unknown Rx traMADoL [Ultram] 50 mg PO Q6HR PRN #12 tablet 01/22/21 Unknown Rx Allergies Allergy/AdvReac Type Severity Reaction Status Date / Time docusate Allergy Vomiting Verified 03/12/18 14:09 docusate sodium [From Colace] Allergy Vomiting Verified 03/12/18 14:09 ibuprofen [From Motrin] Allergy Unknown Verified 05/02/20 22:02 mag citrate Allergy Nausea Uncoded 03/12/18 14:09 ED Review of Systems ROS: Stated complaint: LEFT SIDE PAIN Other details as noted in HPI Constitutional: denies: chills, fever Eyes: denies: eye pain, eye discharge, vision change ENT: denies: ear pain, throat pain Respiratory: denies: cough, shortness of breath, wheezing Cardiovascular: chest pain (Left-sided chest pain). denies: palpitations Endocrine: no symptoms reported Gastrointestinal: denies: abdominal pain, nausea, diarrhea Genitourinary: denies: urgency, dysuria Musculoskeletal: back pain (Upper posterior thoracic pain), arthralgia (Left shoulder, left lateral neck pain), other (Left upper arm and hand pain with tingling and numbness sensation). denies: joint swelling Skin: denies: rash, lesions Neurological: denies: headache, weakness, paresthesias Psychiatric: denies: anxiety, depression Hematological/Lymphatic: denies: easy bleeding, easy bruising ED Past Medical Hx - Past Medical History Previous Medical History?: Yes Hx Hypertension: Yes Hx Arthritis: Yes Additional medical history: diverticulitis,. only right kidney. gout - Surgical History Past Surgical History?: Yes Additional Surgical History: colostomy 10/24/12, reversal of colostomy 2013, left kidney removed 1971, left knee surgery 2013. abd surgery x 2,. HERNIA - Social History Smoking Status: Former Smoker Substance Use Type: Alcohol - Medications Home Medications: Home Medications Medication Instructions Recorded Confirmed Last Taken Type Ibuprofen [Motrin 800 MG tab] 800 mg PO Q8HR PRN #20 tablet 03/31/16 Unknown Rx Acetaminophen/Codeine [Tylenol #3] 1 tab PO Q4HR PRN #20 tablet 06/01/16 Unknown Rx Furosemide [Lasix TAB] 20 mg PO QDAY #7 tablet 06/01/16 Unknown Rx Ciprofloxacin [Ciprofloxacin ORAL 500 mg PO BID #24 ml 08/02/16 Unknown Rx LIQ] metroNIDAZOLE [Flagyl] 500 mg PO Q12HR #24 tab 08/02/16 Unknown Rx traMADoL [Ultram 50 MG tab] 50 mg PO Q6H #8 tablet 10/02/16 Unknown Rx Ibuprofen [Motrin] 800 mg PO Q8HR PRN #25 tablet 11/08/16 Unknown Rx cephALEXin [Keflex] 500 mg PO Q12HR #14 cap 11/08/16 Unknown Rx Ibuprofen [Motrin 600 MG tab] 600 mg PO Q8H PRN #20 tablet 11/12/16 Unknown Rx HYDROcodone/APAP 5-325 [[place] 1 each PO Q6HR PRN #14 tablet 03/12/17 Unknown Rx 5/325] Ondansetron [Zofran Odt] 4 mg PO Q8HR PRN #20 tab.rapdis 03/12/17 Unknown Rx Acetaminophen [Acetaminophen TAB] 500 mg PO Q6HR PRN #30 tablet 03/26/17 Unknown Rx traMADoL [Ultram 50 MG tab] 50 mg PO Q6HR PRN #12 tablet 03/26/17 Unknown Rx Doxycycline Hyclate [Doxycycline 100 mg PO Q12HR #20 tab 03/29/17 Unknown Rx Hyclate TAB] Ibuprofen [Motrin] 800 mg PO Q8HR PRN #15 tablet 03/29/17 Unknown Rx Sulfamethoxazole/Trimethoprim 1 each PO BID #20 tablet 03/29/17 Unknown Rx [Bactrim DS TAB] Famotidine [Pepcid] 20 mg PO BID #30 tablet 05/17/17 Unknown Rx HYDROcodone/APAP 5-325 [[place] 1 - 2 each PO Q6HR PRN #14 tablet 05/17/17 Unknown Rx 5/325] Promethazine [Phenergan TAB] 25 mg PO Q6HR PRN #20 tab 05/17/17 Unknown Rx Promethazine [Phenergan] 25 mg IN Q6HR PRN #5 supp.rect 05/17/17 Unknown Rx HYDROcodone/ACETAMINOPHEN 1 each PO Q6H PRN 2 Days #8 tablet 10/23/17 Unknown Rx [Hydrocodon-Acetaminophen 5-325] Acetaminophen/Codeine [Tylenol 1 tab PO Q6H PRN #14 tab 03/12/18 Unknown Rx /Codeine # 3 tab] lisinopriL [Zestril TAB] 10 mg PO QDAY #40 tablet 03/12/18 Unknown Rx Acetaminophen/Codeine [Tylenol 1 tab PO Q6H PRN #12 tab 07/09/18 Unknown Rx /Codeine # 3 tab] Ibuprofen [Motrin] 600 mg PO Q8H PRN #20 tablet 07/09/18 Unknown Rx Famotidine [Pepcid] 20 mg PO BID #60 tablet 07/15/18 Unknown Rx Naproxen 500 mg PO BID PRN #30 tablet 07/15/18 Unknown Rx Dicyclomine [Bentyl] 20 mg PO QID #10 tablet 08/15/18 Unknown Rx Ibuprofen [Ibu] 800 mg PO Q8H PRN #20 tablet 08/15/18 Unknown Rx Ondansetron [Zofran Odt] 4 mg PO Q8HR #10 tab.rapdis 08/15/18 Unknown Rx Naproxen [Naprosyn] 500 mg PO BID #20 tablet 08/27/18 Unknown Rx Sulfamethoxazole/Trimethoprim 1 each PO BID 7 Days #14 tablet 08/27/18 Unknown Rx [Bactrim DS TAB] cephALEXin [Keflex] 500 mg PO Q12HR 7 Days #14 cap 08/27/18 Unknown Rx Colchicine 0.6 mg PO Q8H PRN #12 capsule 09/08/18 Unknown Rx Ibuprofen [Motrin] 600 mg PO Q8H PRN #12 tablet 09/08/18 Unknown Rx predniSONE [Deltasone] 50 mg PO QDAY 3 Days #3 tab 09/08/18 Unknown Rx Acetaminophen [Tylenol] 650 mg PO Q8HR PRN #30 capsule 05/02/20 Unknown Rx Apixaban [Eliquis] 5 mg PO BID 30 Days #60 tablet 05/02/20 Unknown Rx Menthol/Camphor [[place] 1 applic TP BID #18 oint...g. 05/02/20 Unknown Rx Ointment] Prednisone [predniSONE 10 mg 10 mg PO .TAPER #1 tab.ds.pk 05/02/20 Unknown Rx (6-Day Pack, 21 Tabs)] lisinopriL [Zestril TAB] 20 mg PO QDAY #30 tablet 05/02/20 Unknown Rx methOCARBAMOL [Robaxin TAB] 500 mg PO BID PRN #20 tab 05/02/20 Unknown Rx Sulfamethoxazole/Trimethoprim 1 each PO BID #14 tablet 01/09/21 Unknown Rx [Bactrim DS TAB] predniSONE [Deltasone] 20 mg PO BID #8 tab 01/09/21 Unknown Rx Gabapentin 300 mg PO Q12H #60 cap 01/22/21 Unknown Rx predniSONE [Deltasone] 40 mg PO QDAY #10 tab 01/22/21 Unknown Rx traMADoL [Ultram] 50 mg PO Q6HR PRN #12 tablet 01/22/21 Unknown Rx ED Physical Exam - General Limitations: No Limitations General appearance: alert, in no apparent distress - Head Head exam: Present: atraumatic, normocephalic, normal inspection - Eye Eye exam: Present: normal appearance, PERRL, EOMI Pupils: Present: normal accommodation - ENT ENT exam: Present: normal exam, normal orophraynx, mucous membranes moist, TM's normal bilaterally, normal external ear exam - Neck Neck exam: Present: normal inspection, tenderness (Palpable tenderness of left lateral sternocleidomastoid and trapezoid cervical muscles), full ROM - Respiratory Respiratory exam: Present: normal lung sounds bilaterally, chest wall tenderness (Palpable reproducible left lateral chest wall tenderness at the level of pectoralis major muscle). Absent: respiratory distress, wheezes, rales, stridor, accessory muscle use, decreased breath sounds, prolonged expiratory - Cardiovascular Cardiovascular Exam: Present: regular rate, normal rhythm, normal heart sounds. Absent: systolic murmur, diastolic murmur, rubs, gallop - GI/Abdominal GI/Abdominal exam: Present: soft, normal bowel sounds. Absent: distended, tenderness, guarding, hyperactive bowel sounds, hypoactive bowel sounds, organomegaly - Extremities Exam Extremities exam: Present: normal inspection, full ROM, tenderness (Palpable left shoulder and left elbow tenderness), normal capillary refill. Absent: pedal edema, joint swelling, calf tenderness - Back Exam Back exam: Present: normal inspection, full ROM. Absent: tenderness, CVA tenderness (R), CVA tenderness (L), muscle spasm, paraspinal tenderness, vertebral tenderness - Neurological Exam Neurological exam: Present: alert, oriented X3, CN II-XII intact, normal gait, reflexes normal - Psychiatric Psychiatric exam: Present: normal affect, normal mood - Skin Skin exam: Present: warm, dry, intact, normal color. Absent: rash ED Course Vital Signs 01/21/21 19:18 Temperature 98.8 F Pulse Rate 83 Respiratory 18 Rate Blood Pressure 171/119 O2 Sat by Pulse 99 Oximetry ED Medical Decision Making - Lab Data Result diagrams: 01/21/21 19:38 01/21/21 19:38 - EKG Data EKG shows normal: sinus rhythm Rate: normal - EKG Data Interpretation: normal EKG 01/22/21 00:03 EKG shows normal sinus rhythm with a ventricular rate of [address] or T wave abnormalities. - Radiology Data Radiology results: report reviewed, [place] [address] XRay Report Signed Patient: GERMANIA PANTOJA JR MR#: [id number] : 1965 Acct:[id number] Age/Sex: 56 / M ADM Date: 01/21/21 Loc: ED Attending Dr: Ordering Physician: MANUEL LEBLANC Date of Service: 01/21/21 Procedure(s): XR chest routine 2V Accession Number(s): [id number] cc: MANUEL LEBLANC Fluoro Time In Minutes: CHEST 2 VIEWS INDICATION / CLINICAL INFORMATION: chest pain. COMPARISON: 01/09/2021 FINDINGS: SUPPORT DEVICES: None. HEART / MEDIASTINUM: No significant abnormality. LUNGS / PLEURA: No significant pulmonary or pleural abnormality. No pneumothorax. ADDITIONAL FINDINGS: No significant additional findings. IMPRESSION: 1. No acute findings. 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 Patient states that pain has been persistent, and worse with any movement or an active range of motion. Patient states that at night the pain gets worse when he lays down. Patient states that he has previously taken [place] 10 mg - 325 mg for his chronic pain but which he ran out of a few months ago. In the ED, patient is alert and oriented x3 and is not in any distress but afebrile and hypertensive in triage. Chest x-ray showed no acute cardiopulmonary abnormalities or pneumonitis. EKG shows normal sinus rhythm with a ventricular rate of [address] or T wave abnormalities. Lab test results were reviewed and are all nonactionable including the initial and 3-hour troponin levels. Patient heart score is 2 and patient D-dimer level was normal. Patient was treated for pain in the ED and on reevaluation, patient's pain is well controlled medication. Patient symptoms are likely due to cervical radiculopathy. Patient was discharged home on medications and advised to follow-up with his primary care physician in 5 to 7 days for reevaluation or return to the ED immediately if symptoms get worse. - Differential Diagnosis cervical radiculopathy; ACS; Costochondritis; Muscle strain; PE; Critical care attestation.: If time is entered above; I have spent that time in minutes in the direct care of this critically ill patient, excluding procedure time. ED Disposition Clinical Impression: Cervical radiculopathy, Nonspecific chest pain, Acute costochondritis Muscle strain of left shoulder Qualifiers: Encounter type: initial encounter Qualified Code(s): S46.912A - Strain of unspecified muscle, fascia and tendon at shoulder and upper arm level, left arm, initial encounter Disposition: 01 HOME / SELF CARE / HOMELESS Is pt being admited?: No Does the pt Need Aspirin: No Condition: Stable Instructions: Costochondritis, [id number], Muscle Strain, [id number], Nonspecific Chest Pain, Adult, [id number], Chest Wall Pain, [id number], Cervical Radiculopathy, [id number] Additional Instructions: All lab test results were reviewed and are all nonactionable. Chest x-ray showed no acute cardiopulmonary abnormalities or pneumonitis. EKG showed normal sinus rhythm with a ventricular rate of [address] or T wave abnormalities. Based on the history and physical exam findings, and the lab test results, your symptoms are likely due to cervical radiculopathy that radiates from his left lateral neck to the left upper and forearm including tingling sensation in the left hand. Therefore take medications with food, drink plenty fluids and follow-up with your primary care physician in 5 to 7 days. Return to the ED immediately if symptoms get worse. Prescriptions: predniSONE [Deltasone] 40 mg PO QDAY #10 tab Gabapentin 300 mg PO Q12H #60 cap traMADoL [Ultram] 50 mg PO Q6HR PRN #12 tablet PRN Reason: Pain Referrals: MERCEDEZ DAILEY MD [Staff Physician] - 3-5 Days Time of Disposition: 00:07 Print Language: CHADIAN
[2021-01-21] MEDS ORDERED: HYDROcodone/ACETAMINOPHEN 7.5-325MG TAB PO ONE (23:47)
[2021-01-21] MEDS ORDERED: predniSONE 20 MG TAB PO ONE (23:47)
[2021-01-21] MEDS ORDERED: ONDANSETRON 4 MG ODT TAB PO ONE (23:47)
--- NOTE | 2021-01-23 10:39 | Electrocardiograph Report ---
[facility] Test Date: 2021-01-21 Test Time: 19:42:58 Pat Name: [facility] Department: Room: Gender: M Skid Man: LESLI : 1965 Requested By: LOLA AHUMADA Order Number: [id number] Reading MD: Jayden Jimenez Measurements Intervals Mason Rate: 72 P: 55 NH: 152 QRS: 3 QRSD: 89 T: 14 QT: 370 QTc: 407 Interpretive Statements Sinus rhythm No previous ECG available for comparison Electronically Signed On 01-23-2021 10:39:35 EDT by Jayden Jimenez
== END 2021-01-22 01:10 | disposition home or self-care (01) ==
LOC: ED 19:02
DX: S46.912A Strain of unspecified muscle, fascia and tendon at shoulder and upper arm level, left arm, initial encounter (principal); R07.9 Chest pain, unspecified; M54.12 Radiculopathy, cervical region; M94.0 Chondrocostal junction syndrome [Tietze]; I10 Essential (primary) hypertension; M19.90 Unspecified osteoarthritis, unspecified site; M10.9 Gout, unspecified; K57.92 Diverticulitis of intestine, part unspecified, without perforation or abscess without bleeding; Z98.890 Other specified postprocedural states; Z87.891 Personal history of nicotine dependence; Z88.6 Allergy status to analgesic agent; Z88.8 Allergy status to other drugs, medicaments and biological substances; X58.XXXA Exposure to other specified factors, initial encounter; Y93.89 Activity, other specified; Y92.89 Other specified places as the place of occurrence of the external cause; Y99.8 Other external cause status
CPT/HCPCS: 36415; 71046; 80053; 84484; 85025; 85379; 85610; 85730; 93005; 99283; J7512; Q0162

== ENCOUNTER 2021-02-05 16:01 | Emergency (ER) | payer MEDICAID ==
[2021-02-05] MEDS ORDERED: HYDROmorphone 1 MG/1 ML INJ IM ONE (16:52)
--- NOTE | 2021-02-05 16:53 | Emergency Department Report ---
ED General Adult HPI - General Chief complaint: Extremity Injury, Lower Stated complaint: LFT KNEE PAIN, AND SWOLLEN Time Seen by Provider: 02/05/21 16:31 Source: patient, RN notes reviewed, old records reviewed Mode of arrival: Ambulatory Limitations: No Limitations - History of Present Illness Initial comments: The patient was evaluated in the emergency department for symptoms described in the history of present illness. He/she was evaluated in the context of the global COVID-19 pandemic, which necessitated consideration that the patient might be at risk for infection with the virus that causes COVID-19. Institutional protocols and algorithms that pertain to the evaluation of patients at risk for COVID-19 are in a state of rapid change based on information released by regulatory bodies including the CDC and federal and state organizations. These policies and algorithms were followed during the patient's care in the emergency department. Please note that these policies, procedures and recommendations changed on a rapid basis. The patient is a 56-year-old gentleman, who presents to the ER today with a complaint of recurrent nontraumatic bilateral knee pain, left greater than the right. Symptoms have been going on for about 3 to 4 days. He denies additional injuries and complaints. He does admit to some dietary indiscretions, and feels like he might be having a mild gout attack. He denies fever, chills, nausea vomiting diarrhea, IV drug use. His pain is throbbing, does not radiate anywhere, increases with palpation and r megha of motion, and decreases with rest. He reports he is unfortunately allergic/intolerant to NSAIDs, he is not follow-up with a pain specialist, orthopedist or participated in physical therapy or occupational therapy, and has not participated in conservative therapy. He felt improved in the emergency room after intramuscular hydromorphone. -: days(s) Location: left, right, lower extremity Quality: aching Consistency: intermittent Improves with: movement, rest Associated Symptoms: denies other symptoms - Related Data Previous Rx's Medication Instructions Recorded Last Taken Type Ibuprofen [Motrin 800 MG tab] 800 mg PO Q8HR PRN #20 tablet 03/31/16 Unknown Rx Furosemide [Lasix TAB] 20 mg PO QDAY #7 tablet 06/01/16 Unknown Rx Ciprofloxacin [Ciprofloxacin ORAL 500 mg PO BID #24 ml 08/02/16 Unknown Rx LIQ] metroNIDAZOLE [Flagyl] 500 mg PO Q12HR #24 tab 08/02/16 Unknown Rx Ibuprofen [Motrin] 800 mg PO Q8HR PRN #25 tablet 11/08/16 Unknown Rx cephALEXin [Keflex] 500 mg PO Q12HR #14 cap 11/08/16 Unknown Rx Ibuprofen [Motrin 600 MG tab] 600 mg PO Q8H PRN #20 tablet 11/12/16 Unknown Rx Ondansetron [Zofran Odt] 4 mg PO Q8HR PRN #20 tab.rapdis 03/12/17 Unknown Rx Doxycycline Hyclate [Doxycycline 100 mg PO Q12HR #20 tab 03/29/17 Unknown Rx Hyclate TAB] Ibuprofen [Motrin] 800 mg PO Q8HR PRN #15 tablet 03/29/17 Unknown Rx Sulfamethoxazole/Trimethoprim 1 each PO BID #20 tablet 03/29/17 Unknown Rx [Bactrim DS TAB] Famotidine [Pepcid] 20 mg PO BID #30 tablet 05/17/17 Unknown Rx Promethazine [Phenergan TAB] 25 mg PO Q6HR PRN #20 tab 05/17/17 Unknown Rx Promethazine [Phenergan] 25 mg TN Q6HR PRN #5 supp.rect 05/17/17 Unknown Rx lisinopriL [Zestril TAB] 10 mg PO QDAY #40 tablet 03/12/18 Unknown Rx Ibuprofen [Motrin] 600 mg PO Q8H PRN #20 tablet 07/09/18 Unknown Rx Famotidine [Pepcid] 20 mg PO BID #60 tablet 07/15/18 Unknown Rx Naproxen 500 mg PO BID PRN #30 tablet 07/15/18 Unknown Rx Dicyclomine [Bentyl] 20 mg PO QID #10 tablet 08/15/18 Unknown Rx Ibuprofen [Ibu] 800 mg PO Q8H PRN #20 tablet 08/15/18 Unknown Rx Ondansetron [Zofran Odt] 4 mg PO Q8HR #10 tab.rapdis 08/15/18 Unknown Rx Naproxen [Naprosyn] 500 mg PO BID #20 tablet 08/27/18 Unknown Rx Sulfamethoxazole/Trimethoprim 1 each PO BID 7 Days #14 tablet 08/27/18 Unknown Rx [Bactrim DS TAB] cephALEXin [Keflex] 500 mg PO Q12HR 7 Days #14 cap 08/27/18 Unknown Rx Colchicine 0.6 mg PO Q8H PRN #12 capsule 09/08/18 Unknown Rx Ibuprofen [Motrin] 600 mg PO Q8H PRN #12 tablet 09/08/18 Unknown Rx predniSONE [Deltasone] 50 mg PO QDAY 3 Days #3 tab 09/08/18 Unknown Rx Apixaban [Eliquis] 5 mg PO BID 30 Days #60 tablet 05/02/20 Unknown Rx lisinopriL [Zestril TAB] 20 mg PO QDAY #30 tablet 05/02/20 Unknown Rx Sulfamethoxazole/Trimethoprim 1 each PO BID #14 tablet 01/09/21 Unknown Rx [Bactrim DS TAB] predniSONE [Deltasone] 20 mg PO BID #8 tab 01/09/21 Unknown Rx Gabapentin 300 mg PO Q12H #60 cap 01/22/21 Unknown Rx predniSONE [Deltasone] 40 mg PO QDAY #10 tab 01/22/21 Unknown Rx Acetaminophen [Acetaminophen TAB] 650 mg PO Q6HR PRN #30 tablet 02/05/21 Unknown Rx Menthol/Camphor [[place] 1 applic TP BID #18 oint...g. 02/05/21 Unknown Rx Ointment] Allergies Allergy/AdvReac Type Severity Reaction Status Date / Time docusate Allergy Vomiting Verified 03/12/18 14:09 docusate sodium [From Colace] Allergy Vomiting Verified 03/12/18 14:09 ibuprofen [From Motrin] Allergy Unknown Verified 05/02/20 22:02 mag citrate Allergy Nausea Uncoded 03/12/18 14:09 ED Review of Systems ROS: Stated complaint: LFT KNEE PAIN, AND SWOLLEN Other details as noted in HPI Comment: All other systems reviewed and negative Musculoskeletal: joint swelling, arthralgia ED Past Medical Hx - Past Medical History Hx Hypertension: Yes Hx Arthritis: Yes Additional medical history: diverticulitis,. only right kidney. gout - Surgical History Additional Surgical History: colostomy 10/24/12, reversal of colostomy 2013, left kidney removed 1971, left knee surgery 2013. abd surgery x 2,. HERNIA - Social History Smoking Status: Never Smoker Substance Use Type: Alcohol - Medications Home Medications: Home Medications Medication Instructions Recorded Confirmed Last Taken Type Ibuprofen [Motrin 800 MG tab] 800 mg PO Q8HR PRN #20 tablet 03/31/16 Unknown Rx Furosemide [Lasix TAB] 20 mg PO QDAY #7 tablet 06/01/16 Unknown Rx Ciprofloxacin [Ciprofloxacin ORAL 500 mg PO BID #24 ml 08/02/16 Unknown Rx LIQ] metroNIDAZOLE [Flagyl] 500 mg PO Q12HR #24 tab 08/02/16 Unknown Rx Ibuprofen [Motrin] 800 mg PO Q8HR PRN #25 tablet 11/08/16 Unknown Rx cephALEXin [Keflex] 500 mg PO Q12HR #14 cap 11/08/16 Unknown Rx Ibuprofen [Motrin 600 MG tab] 600 mg PO Q8H PRN #20 tablet 11/12/16 Unknown Rx Ondansetron [Zofran Odt] 4 mg PO Q8HR PRN #20 tab.rapdis 03/12/17 Unknown Rx Doxycycline Hyclate [Doxycycline 100 mg PO Q12HR #20 tab 03/29/17 Unknown Rx Hyclate TAB] Ibuprofen [Motrin] 800 mg PO Q8HR PRN #15 tablet 03/29/17 Unknown Rx Sulfamethoxazole/Trimethoprim 1 each PO BID #20 tablet 03/29/17 Unknown Rx [Bactrim DS TAB] Famotidine [Pepcid] 20 mg PO BID #30 tablet 05/17/17 Unknown Rx Promethazine [Phenergan TAB] 25 mg PO Q6HR PRN #20 tab 05/17/17 Unknown Rx Promethazine [Phenergan] 25 mg TN Q6HR PRN #5 supp.rect 05/17/17 Unknown Rx lisinopriL [Zestril TAB] 10 mg PO QDAY #40 tablet 03/12/18 Unknown Rx Ibuprofen [Motrin] 600 mg PO Q8H PRN #20 tablet 07/09/18 Unknown Rx Famotidine [Pepcid] 20 mg PO BID #60 tablet 07/15/18 Unknown Rx Naproxen 500 mg PO BID PRN #30 tablet 07/15/18 Unknown Rx Dicyclomine [Bentyl] 20 mg PO QID #10 tablet 08/15/18 Unknown Rx Ibuprofen [Ibu] 800 mg PO Q8H PRN #20 tablet 08/15/18 Unknown Rx Ondansetron [Zofran Odt] 4 mg PO Q8HR #10 tab.rapdis 08/15/18 Unknown Rx Naproxen [Naprosyn] 500 mg PO BID #20 tablet 08/27/18 Unknown Rx Sulfamethoxazole/Trimethoprim 1 each PO BID 7 Days #14 tablet 08/27/18 Unknown Rx [Bactrim DS TAB] cephALEXin [Keflex] 500 mg PO Q12HR 7 Days #14 cap 08/27/18 Unknown Rx Colchicine 0.6 mg PO Q8H PRN #12 capsule 09/08/18 Unknown Rx Ibuprofen [Motrin] 600 mg PO Q8H PRN #12 tablet 09/08/18 Unknown Rx predniSONE [Deltasone] 50 mg PO QDAY 3 Days #3 tab 09/08/18 Unknown Rx Apixaban [Eliquis] 5 mg PO BID 30 Days #60 tablet 05/02/20 Unknown Rx lisinopriL [Zestril TAB] 20 mg PO QDAY #30 tablet 05/02/20 Unknown Rx Sulfamethoxazole/Trimethoprim 1 each PO BID #14 tablet 01/09/21 Unknown Rx [Bactrim DS TAB] predniSONE [Deltasone] 20 mg PO BID #8 tab 01/09/21 Unknown Rx Gabapentin 300 mg PO Q12H #60 cap 01/22/21 Unknown Rx predniSONE [Deltasone] 40 mg PO QDAY #10 tab 01/22/21 Unknown Rx Acetaminophen [Acetaminophen TAB] 650 mg PO Q6HR PRN #30 tablet 02/05/21 Unkno wn Rx Menthol/Camphor [[place] 1 applic TP BID #18 oint...g. 02/05/21 Unknown Rx Ointment] ED Physical Exam - General Limitations: No Limitations General appearance: alert, in no apparent distress - Head Head exam: Present: atraumatic, normocephalic - Eye Eye exam: Present: normal appearance, EOMI. Absent: nystagmus - ENT ENT exam: Present: normal exam, normal orophraynx, mucous membranes moist, normal external ear exam - Neck Neck exam: Present: normal inspection, full ROM. Absent: tenderness, meningismus - Respiratory Respiratory exam: Present: normal lung sounds bilaterally. Absent: respiratory distress, wheezes, rales, rhonchi, stridor, decreased breath sounds - Cardiovascular Cardiovascular Exam: Present: regular rate, normal rhythm, normal heart sounds. Absent: bradycardia, tachycardia, irregular rhythm, systolic murmur, diastolic murmur, rubs, gallop - GI/Abdominal GI/Abdominal exam: Present: soft. Absent: distended, tenderness, guarding, rebound, rigid, pulsatile mass - Rectal Rectal exam: Present: deferred - Extremities Exam Extremities exam: Present: normal inspection, full ROM (There is no redness, pus, streaking or fluctuance noted over the bilateral knees.), tenderness (The patient has lateral and medial bilateral joint line knee tenderness. Patient has full intact active and passive range of motion in the bilateral hips, knees and ankles.), other (2+ pulses noted in the bilateral upper and lower extremities. There is no palpable cord. negative Homans sign. Muscular compartments are soft. The pelvis is stable.). Absent: pedal edema, calf tenderness - Back Exam Back exam: Present: normal inspection, full ROM. Absent: tenderness, CVA tenderness (R), CVA tenderness (L), paraspinal tenderness, vertebral tenderness - Neurological Exam Neurological exam: Present: alert, oriented X3, normal gait, other (No facial d judy. Tongue midline. Extraocular movements intact bilaterally. Facial sensation intact to light touch in V1, V2, V3 distribution bilaterally. 5 and a 5 strength in 4 extremities. Sensation intact to light touch in 4 extremities.). Absent: motor sensory deficit - Psychiatric Psychiatric exam: Present: normal affect, normal mood - Skin Skin exam: Present: warm, dry, intact, normal color. Absent: rash ED Course Vital Signs 02/05/21 02/05/21 16:12 17:15 Temperature 98.2 F Pulse Rate 102 H Respiratory 18 18 Rate Blood Pressure 118/88 O2 Sat by Pulse 94 Oximetry ED Medical Decision Making - Lab Data Vital Signs 02/05/21 02/05/21 02/05/21 16:12 17:15 17:44 Temperature 98.2 F Pulse Rate 102 H 95 H Respiratory 18 18 18 Rate Blood Pressure 118/88 Blood Pressure 147/105 [Right] O2 Sat by Pulse 94 99 Oximetry - Radiology Data Radiology results: pending, report reviewed, image reviewed Prior imaging studies are reviewed and appreciated - Medical Decision Making Differential diagnosis, including but not limited to: Gout, pseudogout, arthritis, patellofemoral syndrome Assessment and plan: 56-year-old gentleman, with bilateral knee pain, left greater than right. He has full active and passive range of motion, there is no pus, streaking or limitations in range of motion, he is able to ambulate with a steady gait, and he is noted to be on his cellular phone during multiple examinations. No indication for emergent arthrocentesis at this time. Rest, ice, compression, elevation therapy, he is given a single dose of hydromorphone here in the emergency room for breakthrough pain. We will discharge with high-dose acetaminophen, [place] balm, he is instructed to follow-up with outpatient orthopedics, primary care, or physiatry, to initiate outpatient physical therapy and rehabilitation. At the time of discharge, he was sitting down comfortably, on a chair, looking at his cell phone, and not in any acute distress. Critical care attestation.: If time is entered above; I have spent that time in minutes in the direct care of this critically ill patient, excluding procedure time. ED Disposition Clinical Impression: Bilateral knee pain Disposition: 01 HOME / SELF CARE / HOMELESS Is pt being admited?: No Does the pt Need Aspirin: No Condition: Good Instructions: Chronic Knee Pain, Adult, [id number] Additional Instructions: Recommend that patient use ice packs and heat packs as needed to the joints that are experiencing physical pain. Use acetaminophen 650 mg, every 4-6 hours as needed for physical pain, maximum daily dose to not exceed 3 g per 24 hours. Take the prescribed pain medication and [place] balm ointment as needed and directed. We recommend follow-up with a primary care doctor, orthopedist or a ore grad[employer] within the next 7 to 10 days for repeat checkup and evaluation. Patient will likely benefit from initiation of physical therapy, to improve range of motion, flexibility, strength and functionality of the lower extremities and knee joints. For the patient's convenience, a number of local providers have been listed. Please return to the emergency room right away with new pain, worsened pain, migration of pain, projectile vomiting, change in mental status, confusion redness, pus, streaking, fevers, inability to bear weight, or any new, worsened or different symptoms not present on the initial emergency room evaluation. Referrals: OCTAVIO OBRIEN MD [Primary Care Provider] - 3-5 Days GUILLERMO BRYSON MD [Staff Physician] - 3-5 Days [facility] [Provider Group] - 3-5 Days
[2021-02-05 18:15] VITALS: BP 153/115
== END 2021-02-05 18:14 | disposition home or self-care (01) ==
LOC: ED 16:01
DX: M25.562 Pain in left knee (principal); M25.561 Pain in right knee; Z88.8 Allergy status to other drugs, medicaments and biological substances; F10.20 Alcohol dependence, uncomplicated
CPT/HCPCS: 96372; 99282; J1170

== ENCOUNTER 2021-02-06 14:52 | Emergency (ER) | payer MEDICAID ==
[2021-02-06] MEDS ORDERED: dexAMETHasone 4 MG/ML VIAL IM ONE (16:51)
[2021-02-06] MEDS ORDERED: HYDROcodone/ACETAMINOPHEN 5-325 MG TAB PO ONE (16:54)
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
[2021-02-06] MEDS ORDERED: COLCHICINE 0.6 MG TAB PO SCH (17:30)
[2021-02-06 18:34] VITALS: BP 154/105
[2021-02-06] MEDS ORDERED: cloNIDine 0.1 MG TAB PO ONE (18:47)
== END 2021-02-06 18:37 | disposition home or self-care (01) ==
LOC: ED 14:52
DX: M25.562 Pain in left knee (principal); M25.561 Pain in right knee; I10 Essential (primary) hypertension; M10.9 Gout, unspecified; F10.20 Alcohol dependence, uncomplicated; Z88.8 Allergy status to other drugs, medicaments and biological substances
CPT/HCPCS: 96372; 99282; J1100

== ENCOUNTER 2021-02-16 14:34 | Emergency (ER) | payer MEDICAID ==
--- NOTE | 2021-02-16 15:27 | Vascular Lab Report ---
VL venous duplex LE BILAT INDICATION / CLINICAL INFORMATION: pain in legs, hx of dvts. TECHNIQUE: Duplex doppler imaging was performed using venous compression and other maneuvers. COMPARISON: None available. FINDINGS: No venous thrombosis is identified within the visualized extremity vasculature. ADDITIONAL FINDINGS: None. IMPRESSION: 1. No sonographic evidence for DVT in the visualized bilateral lower extremity vasculature. Signer Name: Robert Aden MD Signed: 02/16/2021 3:22 PM Workstation Name: [id number]
[2021-02-16] MEDS ORDERED: HYDROcodone/ACETAMINOPHEN 5-325 MG TAB PO ONE (15:32)
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
--- NOTE | 2021-02-16 15:58 | XRay Report ---
CHEST 2 VIEWS INDICATION / CLINICAL INFORMATION: Shortness of breath. COMPARISON: 01/21/2021 FINDINGS: SUPPORT DEVICES: None. HEART / MEDIASTINUM: No significant abnormality. LUNGS / PLEURA: No significant pulmonary or pleural abnormality. No pneumothorax. ADDITIONAL FINDINGS: No significant additional findings. IMPRESSION: 1. No acute findings. Signer Name: Anish Fitzgerald MD Signed: 02/16/2021 3:54 PM Workstation Name: [id number]
[2021-02-16 16:27] LABS: Basophils # (Auto) 0.1 K/mm3 (0.0-0.1); Basophils % (Auto) 1.1 % (0.0-1.8); Eosinophils % (Auto) 0.3 % (0.0-4.3); Hematocrit 44.7 % (35.5-45.6); Hemoglobin 14.4 gm/dl (11.8-15.2); Lymphocytes % (Auto) 30.2 % (13.4-35.0); Mean Corpuscular HGB Conc 32 % (32-34); Mean Corpuscular Volume 88 fl (84-94); Monocytes # (Auto) 0.7 K/mm3 (0.0-0.8); Red Blood Count 5.09 M/mm3 (3.65-5.03); Red Cell Distribution Width 15.6 % (13.2-15.2)
[2021-02-16 17:37] LABS: Alanine Aminotransferase 18 units/L (7-56); Albumin 4.2 g/dL (3.9-5); BUN/Creatinine Ratio 14; Blood Urea Nitrogen 20 mg/dL (9-20); Calcium 9.5 mg/dL (8.4-10.2); Hemolysis Index 33
[2021-02-16 18:05] VITALS: BP 145/108
[2021-02-16 19:27] LABS: Platelet Count 228 K/mm3 (140-440)
--- NOTE | 2021-02-17 09:18 | Electrocardiograph Report ---
[facility] Test Date: 2021-02-16 Test Time: 15:36:45 Pat Name: [facility] Department: Room: Gender: M Heel Compressor: DANDRE : 1965 Requested By: ELLIE GEORGE Order Number: [id number] Reading MD: Olman Sutherland Measurements Intervals Media Rate: 78 P: 63 OH: 152 QRS: 18 QRSD: 77 T: 42 QT: 350 QTc: 400 Interpretive Statements Sinus rhythm Compared to ECG 01/21/2021 19:42:58 No significant changes Electronically Signed On 02-17-2021 9:18:05 EDT by Olman Sutherland
== END 2021-02-16 18:30 | disposition home or self-care (01) ==
LOC: ED 14:34
DX: M79.605 Pain in left leg (principal); M79.604 Pain in right leg; R06.00 Dyspnea, unspecified; I10 Essential (primary) hypertension; K21.9 Gastro-esophageal reflux disease without esophagitis; M19.90 Unspecified osteoarthritis, unspecified site; M10.9 Gout, unspecified; Z98.890 Other specified postprocedural states; Z88.6 Allergy status to analgesic agent; Z88.8 Allergy status to other drugs, medicaments and biological substances; Z88.9 Allergy status to unspecified drugs, medicaments and biological substances
CPT/HCPCS: 36415; 71046; 80053; 84484; 85025; 85379; 93005; 93970; 99284

== ENCOUNTER 2021-03-08 20:30 | Emergency (ER) | payer MEDICAID ==
[2021-03-08 21:19] LABS: Bilirubin,Urine NEG (Negative); Blood,Urine SM (Negative); Color,Urine Yellow (Yellow); Mucus,Urine FEW /HPF; Protein,Urine <15 mg/dL mg/dL (Negative); Urobilinogen,Urine < 2.0 mg/dL (<2.0); WBC,Urine < 1.0 /HPF (0.0-6.0)
[2021-03-08 21:36] LABS: Basophils # (Auto) 0.1 K/mm3 (0.0-0.1); Basophils % (Auto) 1.2 % (0.0-1.8); Eosinophils # (Auto) 0.1 K/mm3 (0.0-0.4); Eosinophils % (Auto) 1.1 % (0.0-4.3); Hematocrit 43.1 % (35.5-45.6); Hemoglobin 14.4 gm/dl (11.8-15.2); Lymphocytes # (Auto) 2.4 K/mm3 (1.2-5.4); Lymphocytes % (Auto) 43.8 % (13.4-35.0); Mean Corpuscular HGB Conc 33 % (32-34); Mean Corpuscular Volume 86 fl (84-94); Monocytes # (Auto) 0.5 K/mm3 (0.0-0.8); Monocytes % (Auto) 9.4 % (0.0-7.3); Platelet Count 289 K/mm3 (140-440); Red Blood Count 5.02 M/mm3 (3.65-5.03); Red Cell Distribution Width 15.6 % (13.2-15.2)
[2021-03-08 21:45] LABS: Alanine Aminotransferase 19 units/L (7-56); Albumin 3.9 g/dL (3.9-5); BUN/Creatinine Ratio 12; Blood Urea Nitrogen 15 mg/dL (9-20); Hemolysis Index 33
[2021-03-08 21:51] LABS: Bilirubin,Direct < 0.2 mg/dL (0-0.2)
[2021-03-08] MEDS ORDERED: ONDANSETRON 4 MG/2 ML INJ IV ONE (22:08)
[2021-03-08] MEDS ORDERED: MORPHINE 4 MG/1 ML INJ IV ONE (22:08)
[2021-03-08] MEDS ORDERED: SODIUM CHLORIDE 0.9% 1000 ML 1,000 ML IV ONE (22:08)
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
[2021-03-09] MEDS ORDERED: MORPHINE 4 MG/1 ML INJ IV ONE (00:03)
--- NOTE | 2021-03-09 00:08 | Cat Scan Report ---
CT ABDOMEN AND PELVIS WITH CONTRAST INDICATION / CLINICAL INFORMATION: Diffuse abdominal pain x 6 days. TECHNIQUE: Axial CT images were obtained through the abdomen and pelvis after 100 mL Omnipaque [address] scans at this location are performed using CT dose reduction for ALARA by means of automated exposure control. COMPARISON: CT dated 08/15/18 FINDINGS: LOWER CHEST: No significant abnormality. LIVER: No significant abnormality. GALLBLADDER: No significant abnormality. BILE DUCTS: No significant abnormality. PANCREAS: No significant abnormality. SPLEEN: No significant abnormality. ADRENALS: No significant abnormality. RIGHT KIDNEY / URETER: No significant abnormality. LEFT KIDNEY / URETER: Absent. STOMACH / SMALL BOWEL: Postoperative findings of the mid small bowel. No acute abnormality. COLON: No significant abnormality. APPENDIX: No significant abnormality. PERITONEUM: No free fluid. No free air. No fluid collection. LYMPH NODES: No significant adenopathy. AORTA / ARTERIES: No significant abnormality. IVC / VEINS: No significant abnormality. URINARY BLADDER: No significant abnormality. REPRODUCTIVE ORGANS: No significant abnormality. ADDITIONAL FINDINGS: None. SKELETAL SYSTEM: No significant abnormality. IMPRESSION: 1. No inflammatory process or bowel obstruction. 2. No acute findings. No significant change. Signer Name: Carmel Belle MD Signed: 03/09/2021 12:04 AM Workstation Name: [id number]
[2021-03-09 00:47] VITALS: BP 142/88
== END 2021-03-09 00:43 | disposition home or self-care (01) ==
LOC: ED 20:30
DX: R10.84 Generalized abdominal pain (principal); I10 Essential (primary) hypertension; M19.90 Unspecified osteoarthritis, unspecified site; Z98.890 Other specified postprocedural states; Z88.0 Allergy status to penicillin
CPT/HCPCS: 36415; 74177; 80048; 80076; 81001; 82150; 83690; 85025; 87086; 96361; 96374; 96375; 96376; 99284; J2270; J2405; J7030; Q9967